=== PATIENT | male | born 1940 | race Caucasian/White ===

== ENCOUNTER 2021-06-11 12:19 | Inpatient (IN) | payer MEDICARE, SELFPAY ==
[2021-06-11] VITALS (7 sets, daily range): BP systolic 150–180; BP diastolic 55–75; PULSE 70–105; RESP 16–20; TEMP 36.2–37.6; O2SAT 97–99; BMI 25.6; BMI 26.6
--- NOTE | 2021-06-11 12:49 | EKG12_ITS ---
Test Reason : EDEMA Blood Pressure : / mmHG Vent. Rate : 084 BPM Atrial Rate : 084 BPM P-R Int : 178 ms QRS Dur : 094 ms QT Int : 348 ms P-R-T Axes : 037 -09 049 degrees QTc Int : 411 ms Normal sinus rhythm Normal ECG Confirmed by SAMARIA BUCKLEY MD ([id number]), editor magazine SYLVESTER ROSENBERG ([id number]) on 06/14/2021 11:12:31 AM Referred By: DEA/MEHUL Confirmed By:SAMARIA BUCKLEY MD
--- NOTE | 2021-06-11 12:49 | RAD_ITS ---
STUDY: X-RAY CHEST REASON FOR EXAM: Male, 81 years old. Peripheral edema TECHNIQUE: Single AP portable view of the chest. COMPARISON: None. FINDINGS: Calcified pleural plaques in the left hemithorax. Hyperinflation. Mild increased markings at the lung bases slightly more prominent on the left side suggestive of bibasilar atelectasis and/or scarring. There is no demonstrated pleural abnormality. Normal size heart. Normal mediastinum and jj. There is prominence of the pulmonary hilar arteries without peripheral pulmonary vascular congestion, suggesting pulmonary hypertension. There is atherosclerotic calcification of the aortic arch with tortuosity. There are diffuse degenerative changes of the visualized thoracic spine. Normal visualized ribs, clavicles, and shoulders. There is no demonstrated abnormality of the visualized soft tissue structures of the upper abdomen. RAD/Chest 1 View (Portable) IMPRESSION: Hyperinflation. Calcified pleural plaques in the left hemithorax. Increased markings at the lung bases slightly worse on the left side suggestive of either linear atelectasis and/or scarring. Electronically Signed: Kemal Shah MD at 13:29 EST ,
--- NOTE | 2021-06-11 12:50 | EDS_ITS ---
HPI History of Present Illness Chief Complaint: Edema Informant: patient Onset/Context/Timing Onset: Weeks Context: Gradual Onset Timing: Continuous Current Severity: Mild Maximum Severity: Mild Narrative Narrative: 81-year-old male history of prostate cancer with bony mets. He underwent chemotherapy last summer has been off of it since November. Also history of a prior MS, coronary disease with 1 stent and prior history of CHF. States the last 2 weeks he has had increasing swelling of his lower extremities primarily his feet below his knees. Then he developed swelling around his eyes and also his scrotum. Primary care physician placed him on Lasix and he said he has had limited improvement. Denies any shortness of breath. No fever. He is able to urinate. Patient states he is still urinating. Prior similar symptoms: No Recent Illness/Hospitalization: No PFSH PFS Medical History (Updated 06/11/21 @ 14:[address] Shukri Garner MD) Bone cancer Allergy/AdvReac Type Severity Reaction Status Date / Time No Known Allergies Allergy Verified 06/11/21 12:22 Social History Smoking Status: Never smoker ROS ROS ED ROS Narrative Swelling. Otherwise unremarkable. Review of Systems ROS Unobtainable: Denies due to encephalopathy Constitutional Constitutional ED: Denies chills or fever(s) ENT ENT ED: Denies ear pain Cardiovascular Cardiovascular: Denies chest pain Respiratory/Chest Respiratory/Chest: Denies cough or dyspnea Gastrointestinal Gastrointestinal: Denies diarrhea, nausea or vomiting Genitourinary Genitourinary ED: Denies dysuria or hematuria Musculoskeletal Musculoskeletal: Denies arthralgias or myalgias Integumentary Denies rash Neurologic Neurologic: Denies headache(s) Psychiatric Psychiatric: Denies depression Endocrine Endocrinology: Denies polyuria Allergic/Immunologic Allergic/Immunologic ED: Denies urticaria EXAM Physical Exam Narrative Exam Narrative: 11-year-old male no acute distress. Pulse ox 99% on room air no signs hypoxia. H EENT exam unremarkable. Neck nontender. No JVD. Lungs clear to auscultation bilaterally. Heart regular rhythm no murmur. Abdomen soft nontender normal bowel sounds no peritoneal signs. External exam unremarkable other than a swollen scrotum. Nontender. No cellulitis. Significantly edematous. Lower extremities are nontender but he is 1-2+ pitting edema both lower extremities below the knees. Neurologically is awake and alert with no focal motor deficits. Normal crab backer strength. Normal dorsi plantar flexion. Const Vital Signs: 06/11/21 12:20 Temperature 98.7 F Temperature Source Temporal Pulse Rate 85 Respiratory Rate 16 Blood Pressure 150/55 H Blood Pressure Mean 86 Pulse Ox 99 Oxygen Delivery Method Room Air Positive well nourished and well developed; Negative for obese, cachectic, contractures or unkempt General Appearance ED: well developed and NAD; Negative for unkempt, cachectic, contractures, cyanotic, diaphoretic or pallor Nutritional Appearance: Negative for cachectic or obese HEENT Reports moist mucous membranes Negative for trauma or tenderness Eyes PERRL and EOMs intact bilaterally Neck no lymphadenopathy, supple and no JVD General: Negative for tenderness Chest Wall inspection of chest normal and palpation of chest normal Resp normal respiratory effort and clear to auscultation bilaterally Effort and Inspection: Negative for pain with movement Auscultation: Negative for rales, rhonchi or wheezes Cardio regular rate, regular rhythm, S1 normal heart sound, S2 normal heart sound and no murmurs Rate: other Other Details: Systolic ejection murmur 3 out of 6. GI normal to inspection, nondistended, normoactive bowel sounds, non-tender, non- distended and no masses Inspection: Negative for abdominal distention Auscultation: normoactive bowel sounds Palpation: soft; Negative for tender, guarding or rebound tenderness present Narrative: Scrotal edema. Otherwise nontender. No cellulitis. Back/Spine no CVA tenderness General Back: Negative for CVA tenderness Cervical Spine: Negative for cervical spine tenderness Thoracic Spine / Upper Back: Negative for thoracic spinal tenderness Lumbar Spine / Lower Back: Negative for lumbar spinal tenderness Extremity Negative for normal to inspection Extremity Narrative: 1+ pitting edema both lower extremities. General Extremety ED: Yes edema; Negative for tenderness General Extremity: edema Neuro oriented x3 Sensorium / Orientation: alert; Negative for orientation impaired, lethargic or stuporous Motor Exam: strength 5/5 throughout; Negative for general weakness Psych mental status grossly normal Appearance: Negative for unkempt Attitude: No agitated Mood & Affect: Negative for depressed or tearful Skin no rashes or lesions noted and no wounds General Skin Exam: Negative for jaundice or pallor MDM MDM MDM Narrative Medical decision making narrative: 81-year-old male with lower extremity edema and also scrotal edema. Report he was placed on Lasix by his primary care physician with limited improvement. He denies any shortness of breath. Vital signs are stable. Chest x-ray, labs and EKG are pending. Patient labs are consistent with acute kidney failure with a creatinine of 5.17 previously normal a week ago. He will need to be treated acutely for acute hyperkalemia with IV insulin, aerosol, dextrose. I have spoken to his primary care physician. I spoken to the hospitalist. Patient be admitted to the PCU. Hospitalist will need also obtain a CT of the abdomen looking for any type of obstructive uropathy. This will obviously be done without contrast. I discussed the test results with the patient. Lab Data Attestation: I reviewed the patient's lab results. Lab results narrative: CBC shows a white count 8.9. H&H is 7.8 and 26.4. Platelets of 256. Patient's potassium is 6.3. BUN of 56 and creatinine of 5.17 consistent with acute kidney injury and may be acute kidney failure. We do not have any old labs available for this patient and he is normally cared for at the [facility]. He cannot get on my chart at this time. I am calling his primary care physician's office for old labs. I am calling liver enzymes show an AST of 69. Alk phos of 280. Chest x-ray shows chronic changes and no signs of acute failure nor pleural effusions. I did speak to the patient's primary care physician his most recent BUN and creatinine were 16 and 1 on June 04 so this is all acute and acute kidney failure today. Labs: Laboratory Results - last 24 hr 06/11/21 06/11/21 13:15 13:15 WBC 8.9 RBC 2.82 L Hgb 7.8 L Hct 26.4 L MCV 93.6 MCH 27.7 MCHC 29.5 L RDW Std Deviation 56.4 H RDW Coeff of Nery 16.6 H Plt Count 256 MPV 9.4 Neut % (Auto) Not Reportable Sodium 132 L Potassium 6.3 H* Chloride 105 Carbon Dioxide 19.0 L Anion Gap 8 BUN 56 H Creatinine 5.17 H Estim Creat Clear Calc 10.08 Est GFR (MDRD) Af Amer 14 L Est GFR (MDRD) Non-Af 12 L BUN/Creatinine Ratio 10.8 Glucose 104 Calcium 8.3 L Total Bilirubin 0.20 AST 69 H ALT 24 Alkaline Phosphatase 280 H Total Protein 6.3 L Albumin 2.3 L Globulin 4.0 Albumin/Globulin Ratio 0.6 L Radiography Chest X-Ray - ED: 1 View, Read by ED Physician, Heart, Lungs, Mediastinum, Bony Structures, No Acute Disease and Chronic Changes Diagnostic Testing: Clinical Impression(s) from Imaging Studies Chest X-Ray 06/11/21 12:49 IMPRESSION: Hyperinflation. Calcified pleural plaques in the left hemithorax. Increased markings at the lung bases slightly worse on the left side suggestive of either linear atelectasis and/or scarring. Electronically Signed: Kemal Shah MD at 13:29 EST , Chest x-ray, portable, single no acute abnormality. Interpreted by myself and the radiologist. No failure. Chronic changes. Rhythm Strip Rhythm Strip: Sinus Rhythm Rate: 84 Ectopy: None EKG Initial EKG: Attestation: I personally reviewed and interpreted this EKG as follows: Interpretation: Sinus Rhythm and No Acute Injury Pattern Comments: Sinus rhythm rate 84 no acute signs of MS nor ischemia. Critical Care Time Critical care time (excluding procedures): 30-74 minutes, Including time spent:, Discussing w/Patient &/or Family/Produce Service Team Member, Discussing w/Consultants, Arranging Admission or Transfer, Performing Direct Patient Care at Bedside and - (31 min) Discharge Plan Dx/Rx/DC Orders Clinical Impression: Edema, peripheral, Acute kidney failure, Acute hyperkalemia, History of prostate cancer, Anemia Disposition Disposition: [facility]
[2021-06-11 13:25] LABS: Hematocrit 26.4 % (40-54); Hemoglobin 7.8 g/dL (13.0-16.5); Mean Corp Hgb Conc 29.5 g/dL (32-36); Mean Corpuscular Hgb 27.7 pg (27.0-32.0); Mean Corpuscular Volume 93.6 fL (80-94); Mean Platelet Vol. 9.4 fl (6.2-12.0); POSITIVE COUNT YES; POSITIVE MORPHOLOGY YES; Platelet Count 256 K/mm3 (150-450); RBC Distribution Width CV 16.6 % (11.6-14.6); RBC Distribution Width SD 56.4 fl (35.1-43.9); Red Blood Count 2.82 M/mm3 (4.6-6.2); White Blood Count 8.9 K/mm3 (4.4-11.0)
[2021-06-11 13:27] LABS: Differential Indicated MANUAL DIFF
[2021-06-11 13:46] LABS: ALB/GLOB Ratio 0.6 RATIO (0.9-2.4); AST(SGOT) 69 U/L (15-37); Alanine Aminotransfer ALT/SGPT 24 U/L (16-61); Albumin, Serum 2.3 g/dL (3.2-5.0); Alkaline Phosphatase 280 U/L (45-117); Anion Gap 8 (5-15); BUN 56 mg/dL (7-18); BUN/Creat Ratio 10.8 RATIO (10-20); Calcium,Total 8.3 mg/dL (8.5-10.1); Chloride 105 mmol/L (98-107); Creatinine, Serum 5.17 mg/dL (0.70-1.30); EST Glomerular Filtration Rate 12 mL/min (>60); Est Glom Filt Rate - Afr Amer 14 mL/min (>60); Estimated Creatinine Clearance 10.08 ml/min; Glucose 104 mg/dL (74-106); Potassium 6.3 mmol/L (3.5-5.1); Protein, Total 6.3 g/dL (6.4-8.2); Sodium Level 132 mmol/L (136-145)
[2021-06-11 14:01] LABS: Lymphocyte 14 % (19-41); Metamyelocyte 11 % (0-1); Monocyte 10 % (0-10); Myelocyte 7 % (0-0); Neutrophil-Band 3 % (0-5); Neutrophil-Segmented 55 % (47-70); Total Cells Counted 100 (MANUAL DIFF)
[2021-06-11 14:02] LABS: Platelet Estimate ADEQUATE (ADEQ); Red Cell Morphology NORM C+C NORMAL (NORM C&C)
[2021-06-11 14:04] LABS: Absolute Lymphocyte Count 1.24 X10^3/uL (0.83-4.51); Absolute Neutrophil Count 5.1 X10^3/uL (2.0-7.7)
--- NOTE | 2021-06-11 14:10 | HP.PCM.HOS_ITS ---
HPI - General General Date of Admission: 06/11/21 HPI Narrative ANUEL PIZARRO, is a 81 M with a PMH as outlined including prostate cancer with bony mets who presents via the ED on 06/11/2021 with a complaint of lower extremity swelling. Symptoms been going on for ~ 2 weeks adn he also had swelling of his scrotum and around his eyes. He says he was recently started on Lasix on account of left lower extremity swelling. Patient states he stopped chemotherapy about a year ago for prostate cancer because it made him feel really horrible. He had about 2 sessions to goal at the time he stopped. He has however been having radiation therapy for the bony metastasis and actually had radiation today. He denied any chest pain, shortness of breath, palpitations or dizziness but did complain of swelling around his eyes which bothered him. He states he has been urinating well since he started taking the Lasix. He denied any abdominal distention abdominal pain and review of systems otherwise negative. Vitals in the ED were blood pressure 150/55, pulse rate of 85 and respiratory of 16 as well as temperature of 98.7 Fahrenheit. He was saturating at 99% on room air. CBC showed WBC of 8.9 with hemoglobin of 7.8 and platelets of 256. BMP shows sodium of 132 with potassium of 6.3 and bicarb of 19 as well as creatinine of 5.17. The ED doctor spoke to his PCP who said on 04 June, patient's creatinine was approximately 1. ALP was elevated at 280 and AST was 69. I did request for a CT of the abdomen and pelvis to be done which was ordered by the ED and read was pending, but per my review showed marked bilateral hydronephrosis and hydroureters. He has been admitted to be managed for hyperkalemia and TIERA likely postobstructive in the setting of his advanced prostate cancer. [facility] Medical History (Updated 06/11/21 @ 14:[address] Shukri Garner MD) Bone cancer Allergy/AdvReac Type Severity Reaction Status Date / Time No Known Allergies Allergy Verified 06/11/21 12:22 Social History Smoking Status: Never smoker ROS Constitutional Constitutional: Denies anorexia, chills, fatigue, fever(s), malaise, night sweats or weakness Eyes Eyes: Denies change in vision ENT HEENT: Denies dysphagia, headache(s) or nasal congestion Cardiovascular Cardiovascular: Reports edema; Denies chest pain, dyspnea on exertion, lightheadedness, orthopnea, palpitations, paroxysmal nocturnal dyspnea or rapid heart rate Respiratory/Chest Respiratory/Chest: Denies cough, productive cough, shortness of breath at rest or shortness of breath with exertion Gastrointestinal Gastrointestinal: Denies abdominal pain, constipation, diarrhea, dyspepsia, nausea or vomiting Genitourinary Genitourinary: Denies difficulty urinating, dysuria, hematuria, nocturia, urinary frequency or urinary hesitancy Musculoskeletal Musculoskeletal: Denies back pain, joint pain or joint swelling Neurologic Neurologic: Denies confusion, dizziness or focal weakness Psychiatric Psychiatric: Denies anxiety or depression Endocrine Endocrinology: Denies change in body appearance Hematologic/Lymphatic Hematologic/Lymphatic: Denies anemia Allergic/Immunologic Allergic/Immunologic: Denies asthma Vital Signs Vital Signs Vital Signs: 06/11/21 12:20 Temperature 98.7 F Temperature Source Temporal Pulse Rate 85 Respiratory Rate 16 Blood Pressure 150/55 H Blood Pressure Mean 86 Pulse Ox 99 Oxygen Delivery Method Room Air Weight Weight: 154 lb Body Mass Index (BMI) 25.6 Physical Exam Const alert and oriented x3 General Appearance: cooperative HEENT normocephalic, head/scalp atraumatic, hearing grossly normal bilaterally and moist oral mucous membranes Eyes PERRL, EOMs intact bilaterally and conjunctivae normal Neck no lymphadenopathy Resp normal respiratory effort, no retractions and no use of accessory muscles Cardio regular rate, regular rhythm, S1 normal heart sound, S2 normal heart sound and no murmurs GI normal to inspection, nondistended, normoactive bowel sounds, soft to palpation, non-tender and non-distended Extremity Extremity Narrative: bilateral 3+ lower extremity edema, massive scrotal edema Peripheral Pulses: Yes pulses 2+ throughout Skin no rashes or lesions noted Neuro oriented x3, CN's II-XII intact bilaterally and moves all extremities Sensorium / Orientation: awake and alert Psych affect normal Results Lab / Micro Data Result Diagrams: 06/11/21 13:15 06/11/21 13:15 Labs: Laboratory Results - last 24 hr 06/11/21 13:15: WBC 8.9, RBC 2.82 L, Hgb 7.8 L, Hct 26.4 L, MCV 93.6, MCH 27.7, MCHC 29.5 L, RDW Std Deviation 56.4 H, RDW Coeff of Nery 16.6 H, Plt Count 256, MPV 9.4, Neut % (Auto) Not Reportable, Absolute Neuts (auto) 5.1, Absolute Lymphs (auto) 1.24, Total Counted 100, Neutrophils % (Manual) 55, Band Neutrophils % 3, Lymphocytes % (Manual) 14 L, Monocytes % (Manual) 10, Metamyelocytes % 11 H, Myelocytes % 7 H, Diff Path Review August, Platelet Estimate ADEQUATE, RBC Morphology NORM C+C 06/11/21 13:15: Sodium 132 L, Potassium 6.3 H*, Chloride 105, Carbon Dioxide 19.0 L, Anion Gap 8, BUN 56 H, Creatinine 5.17 H, Estim Creat Clear Calc 10.08, Est GFR (MDRD) Af Amer 14 L, Est GFR (MDRD) Non-Af 12 L, BUN/Creatinine Ratio 10.8, Glucose 104, Calcium 8.3 L, Total Bilirubin 0.20, AST 69 H, ALT 24, Alkaline Phosphatase 280 H, Total Protein 6.3 L, Albumin 2.3 L, Globulin 4.0, Albumin/Globulin Ratio 0.6 L Rhythm Strip Rhythm Strip: Sinus Rhythm Rate: 84 Ectopy: None Radiology Impression Chest X-Ray 06/11/21 12:49 IMPRESSION: Hyperinflation. Calcified pleural plaques in the left hemithorax. Increased markings at the lung bases slightly worse on the left side suggestive of either linear atelectasis and/or scarring. Electronically Signed: Kemal Shah MD at 13:29 EST , Assessment & Plan Assessment/Plan (1) Acute kidney failure: (2) Acute hyperkalemia: (3) Edema, peripheral: PLAN: #TIERA * admit to PCU * Creatinine is 5.17 with a baseline of around 1 from June 04 of this year according to his PCP. Previous records not available in the ED. * potassium is 6.3 * I suspect this is a post obstructive TIERA likely related to his advanced prostate cancer * insert rutherford catheter to monitor urine output * hold lasix * hydrate with IVF NS@ 125cc/hr * consult nephrology * CT of the abdomen and pelvis ordered; per my read, it appears patient has bilateral hydronephrosis and hydroureter. Official read is pending. * consult urology as well * trend Cr * patient counseled that if kidney function doesnt improve, he may need dialysis * #Hyperkalemia due to TIERA * given potassium depleting cocktail in the ED * give PO kayexalate and trend potassium * nephrology consulted * #History of metastatic prostate cancer with bony mets * stopped chemo about a year ago as it made him feel horrible. * says he is getting radiation and got a session of radiation today * to follow up with oncology on outpatient basis * DVT prophylaxis: lovenox, renally dosed Code status: DNRCCA no intubation * Patient counseled extensively about different types of CODE STATUS including full code, DNR CCA and DNR CCA. * Patient initially said he wanted more time to think about it and to discuss with his but subsequently said he knew he did not want intubation or CPR and so was okay with being put in as DNR CCA no intubation for now. * CODE STATUS is DNR CCA no intubation * Total [id number] time 17 minutes. Charges/Coding Visit Charges Inpatient E&M: 73867 Init Hosp L3 Procedures Hospitalists Procedures: 69536 Advncd Care Plan 30 Min
--- NOTE | 2021-06-11 14:50 | CASEMGMT ---
SOL CALDERON Assessment: RN CM to room to meet with patient for initial transition planning/care coordination assessment. SOL CALDERON introduced self and role at [facility]. Patient voices understanding and consents to assessment at this time. No visitors present at bedside. Patient is alert and oriented and answers all questions appropriately, sitting up on ER cart in no apparent distress. Care providers, pharmacy, and demographics verified/updated at this time. Admitting Dx: TIERA, hyperkalemia PCP: Gerardo Roa Specialists: Mascmalka- oncologist, Laine- conference services director Preferred Pharmacy: [facility] [place] Insurance: [facility] Prescription Benefit: yes Living Will/HPOA: Patient states he has a living will and HPOA. Unable to recall who was designated as HPOA. Patient aware these forms are not on file at [facility] and may be brought in to be scanned into record. LNOK: Luz Powers Living Arrangements: Patient lives with in single story house with no steps to enter the home. Patient states independent with ADLs prior to hospitalization. Patient typically ambulates independently without the use of an assistive device. Smoking/ETOH: Former smoker (quit 25 years ago), admits to occasional ETOH use Transportation: Patient drives self and denies transportation concerns. DME/HHC/SNF: Patient denies having any DME in the home and denies need for DME at this time. Denies previous HHC or SNF stays. Patient is currently undergoing radiation treatment for prostate cancer. Patient has no concerns with going home at time of discharge and denies need for HHC. CM to follow for any discharge planning/needs. Patient voices no concerns/needs at this time. Advised patient to ask for CM if any questions/concerns/needs arise. Voices understanding. Plan: home
--- NOTE | 2021-06-11 14:52 | CT_ITS ---
STUDY: CT ABDOMEN AND PELVIS WITHOUT CONTRAST REASON FOR EXAM: Male, 81 years old. Acute kidney failure. RADIATION DOSAGE (If Supplied By Facility): CTDIvol = ( 7.63 ) mGy, DLP = ( 525.77 ) mGycm TECHNIQUE: Transaxial images were obtained from the dome of the diaphragm to the symphysis pubis without oral contrast, and without intravenous contrast. Sagittal and coronal images were reconstructed. Individualized dose optimization techniques were used for this CT. COMPARISON: None. FINDINGS: There are emphysematous changes at the lung bases without acute infiltrate or mass. Small bilateral pleural effusions The visualized portions of the heart are within normal limits. Coronary artery calcifications. Normal liver. Normal gallbladder and extrahepatic biliary system. Normal spleen. Partial fatty replacement of the pancreas without mass. Normal bilateral adrenal glands. The right kidney is normal in size and cortical thickness. There is marked hydronephrosis and pelviectasis. Mild right ureterectasis. There are no filling defects. The left kidney is normal in size and cortical thickness. There is mild hydronephrosis. No obvious ureteral dilatation or filling defect Small hiatal hernia. The stomach is nondistended but grossly normal. There are nondistended fluid-filled loops of small intestine throughout the abdominal cavity. There is disc distention of proximal colon with feces and fluid. There are diverticula and mild wall thickening descending and sigmoid colon with surgical anastomosis in the rectosigmoid region. Question minimal stranding of the left lateral conal and pararenal fascial planes. The possibility of mild diverticulitis cannot be completely ruled out. There is non-visualization of the appendix. There is diffuse atherosclerotic calcification of the abdominal aorta, without a demonstrated aneurysm. Normal inferior vena cava. There is soft tissue density surrounding the upper aorta at the level of the renal veins consistent with lymphadenopathy. Normal urinary bladder. Prostate is prominent and invaginates into the bladder floor. No pelvic lymphadenopathy. No free air or free fluid is seen within the peritoneal cavity Mild anasarca of the soft tissues of the abdominal wall and flanks. There is enlargement of this protocol with questionable hydroceles and marked scrotal wall thickening. There are diffuse degenerative changes of the lumbar spine and hips. There is no visualized fracture. CT/Abdomen/Pelvis without Cont IMPRESSION: 1. Small bilateral pleural effusions. 2. Bilateral hydronephrosis without marked ureterectasis or evidence of renal or ureteral calculi. Question reflux or due to limited bladder emptying secondary to enlarged prostate. 3. Suspected distal descending and proximal sigmoid diverticulitis without complication. 4. Mildly prominent in colon and small bowel. Question ileus secondary to the diverticulitis. 5. Retroperitoneal soft tissue suggesting lymphadenopathy. 6. Hiatal hernia. 7. Enlarged scrotum with questionable hydroceles and marked scrotal wall edema. 8. Anasarca. 9. Degenerative changes of the lumbar spine. Electronically Signed: Keon Jean Baptiste DO at 16:57 EST ,
[2021-06-11] MEDS: Insulin Lispro 10 UNIT in Syringe 0 ML 6 UNIT IV (15:17)
[2021-06-11] MEDS: Sodium Bicarbonate 8.4% 50 ML Syringe 50 MEQ IV (15:17)
[2021-06-11] MEDS: Calcium Gluconate IV 3 GM in Syringe 1 EACH IV (15:17)
[2021-06-11] MEDS: Dextrose 10%-Water 250 ML 999 ML IV (15:18)
[2021-06-11] MEDS: Sodium Polystyrene Sulfonate 15 GM/60 ML UDC 30 GM PO (15:29)
--- NOTE | 2021-06-11 16:00 | ED.RN ---
THIS RN DISCUSSED A CATHETER WITH PATIENT VERBALLY ORDERED BY . PT STATES LIKE HELL AND REFUSES CATHETER AT THIS TIME. PT IS ENCOURAGED TO REACH OUT TO NURSING STAFF IF HE BECOMES MORE UNCOMFORTABLE
[2021-06-11] MEDS: 0.9% Normal Saline 1,000 ML 125 ML IV (16:56)
[2021-06-12] VITALS (16 sets, daily range): BP systolic 142–188; BP diastolic 49–70; PULSE 83–104; RESP 12–20; TEMP 36.9–37.6; O2SAT 94–98
[2021-06-12] MEDS: 0.9% Normal Saline 1,000 ML 125 ML IV (01:24)
[2021-06-12 06:08] LABS: Hematocrit 20.5 % (40-54); Hemoglobin 6.4 g/dL (13.0-16.5); Mean Corp Hgb Conc 31.2 g/dL (32-36); Mean Corpuscular Hgb 27.9 pg (27.0-32.0); Mean Corpuscular Volume 89.5 fL (80-94); Mean Platelet Vol. 9.9 fl (6.2-12.0); POSITIVE COUNT YES; POSITIVE MORPHOLOGY YES; Platelet Count 218 K/mm3 (150-450); RBC Distribution Width CV 16.6 % (11.6-14.6); RBC Distribution Width SD 53.7 fl (35.1-43.9); Red Blood Count 2.29 M/mm3 (4.6-6.2); White Blood Count 6.2 K/mm3 (4.4-11.0)
[2021-06-12 06:21] LABS: Differential Indicated MANUAL DIFF
[2021-06-12 06:39] LABS: Anion Gap 8 (5-15); BUN 56 mg/dL (7-18); BUN/Creat Ratio 10.4 RATIO (10-20); Calcium,Total 7.4 mg/dL (8.5-10.1); Chloride 109 mmol/L (98-107); Creatinine, Serum 5.36 mg/dL (0.70-1.30); EST Glomerular Filtration Rate 11 mL/min (>60); Est Glom Filt Rate - Afr Amer 13 mL/min (>60); Estimated Creatinine Clearance 9.72 ml/min; Glucose 109 mg/dL (74-106); Potassium 5.4 mmol/L (3.5-5.1); Sodium Level 137 mmol/L (136-145)
[2021-06-12 06:53] LABS: Lymphocyte 13 % (19-41); Metamyelocyte 2 % (0-1); Monocyte 8 % (0-10); Myelocyte 3 % (0-0); Neutrophil-Band 3 % (0-5); Neutrophil-Segmented 71 % (47-70); Total Cells Counted 100 (MANUAL DIFF)
[2021-06-12 06:54] LABS: Absolute Lymphocyte Count 0.81 X10^3/uL (0.83-4.51); Absolute Neutrophil Count 4.9 X10^3/uL (2.0-7.7); Lymphocyte # 0.81 X10^3/ul (0.83-4.51); Neutrophil # 4.93 X10^3/uL (2.7-7.7); Platelet Estimate ADEQUATE (ADEQ)
[2021-06-12 06:56] LABS: Red Cell Morphology NORM C+C NORMAL (NORM C&C)
--- NOTE | 2021-06-12 08:54 | PCM.CONS.U ---
Assessment & Plan Assessment/Plan (1) History of prostate cancer: PLAN: Prostate cancer being treated with hormone therapy and radiation therapy. Advanced disease. (2) Acute hyperkalemia: PLAN: Worsening renal function. (3) Acute kidney failure: PLAN: Worsening kidney function due to obstruction probably will need bilateral stents to improve his kidney function will need medically optimized prior to surgical procedure will come by tomorrow and speak with the patient and his family regarding their wishes. HPI Consult Data Date of Consult: 06/12/21 HPI Narrative HPI Narrative: 81-year-old male with a history of prostate cancer diagnosed with a PSA that was very high over 100 he sees a local oncologist and has been on hormone deprivation therapy with Lupron also had radiation therapy. The patient unfortunately is a poor historian and cannot give me all the details but appears to have radiation therapy and hormone therapy for metastatic prostate cancer. CT scan demonstrates bilateral hydronephrosis consistent with obstruction causing renal failure on chronic kidney dysfunction explained the situation to the patient, I would recommend we place bilateral stents however he is very weak and frail and also his hemoglobin is only 6.0. I think you would be necessary to have him medically optimized prior to surgery and will plan to place stents he is also not sure if he wants stents. Somewhat confused. he was agreeable with this. I will have to come by tomorrow and talk to him and his regarding the situation [facility] Medical History (Updated 06/11/21 @ 16:38 by Anum Wheeler) Asthma Bone cancer Chronic pain Diverticulitis Former smoker Myocardial infarct Allergy/AdvReac Type Severity Reaction Status Date / Time No Known Allergies Allergy Verified 06/11/21 12:22 Surgical History (Updated 06/11/21 @ 16:38 by Anum Wheeler) History of coronary artery stent placement Social History Smoking Status: Former smoker ROS Constitutional Constitutional: Denies chills, fever(s) or malaise Eyes Eyes: Denies blurry vision or change in vision ENT HEENT: Reports none Cardiovascular Cardiovascular: Denies chest pain or palpitations Respiratory/Chest Respiratory/Chest: Denies cough or shortness of breath with exertion Gastrointestinal Gastrointestinal: Denies abdominal pain, constipation or diarrhea Musculoskeletal Musculoskeletal: Denies back pain, joint stiffness or joint swelling Integumentary Integumentary: Denies dry skin, jaundice, lesions or rash Neurologic Neurologic: Denies confusion, syncope or weakness Psychiatric Psychiatric: Reports none; Denies anxiety or depression Endocrine Endocrinology: Denies excessive sweating, fatigue or flushing Hematologic/Lymphatic Hematologic/Lymphatic: Denies anemia, easy bleeding or easy bruising Physical Exam Const alert and oriented x3 General Appearance: cooperative HEENT normocephalic, head/scalp atraumatic, EAC's normal and TM's normal bilaterally Eyes PERRL and EOMs intact bilaterally Pupil: sluggish Neck no lymphadenopathy, supple and no JVD General: trachea midline Lymph Lymphatic: no lymphadenopathy noted, lymphedema and lymphadenopathy Resp normal respiratory effort, normal air movement and clear to auscultation bilaterally Cardio regular rate, regular rhythm and peripheral pulses 2+ throughout GI soft to palpation, non-tender and non-distended Extremity normal capillary refill and no clubbing, cyanosis or edema General Extremity: no tenderness to palpation of joints or extremities Skin no rashes or lesions noted General Skin Exam: turgor normal Lesions: no lesions Rashes: no rashes Neuro CN's II-XII intact bilaterally Speech: speech normal Motor Exam: strength 5/5 throughout; Negative for general weakness Psych thought process normal, cooperative and affect normal Appearance: appropriate Lab / Micro Data Result Diagrams: 06/12/21 05:38 06/12/21 05:38 Labs: Laboratory Results - last 24 hr 06/11/21 13:15: WBC 8.9, RBC 2.82 L, Hgb 7.8 L, Hct 26.4 L, MCV 93.6, MCH 27.7, MCHC 29.5 L, RDW Std Deviation 56.4 H, RDW Coeff of Neyr 16.6 H, Plt Count 256, MPV 9.4, Neut % (Auto) Not Reportable, Absolute Neuts (auto) 5.1, Absolute Lymphs (auto) 1.24, Total Counted 100, Neutrophils % (Manual) 55, Band Neutrophils % 3, Lymphocytes % (Manual) 14 L, Monocytes % (Manual) 10, Metamyelocytes % 11 H, Myelocytes % 7 H, Diff Path Review August, Platelet Estimate ADEQUATE, RBC Morphology NORM C+C 06/11/21 13:15: Sodium 132 L, Potassium 6.3 H*, Chloride 105, Carbon Dioxide 19.0 L, Anion Gap 8, BUN 56 H, Creatinine 5.17 H, Estim Creat Clear Calc 10.08, Est GFR (MDRD) Af Amer 14 L, Est GFR (MDRD) Non-Af 12 L, BUN/Creatinine Ratio 10.8, Glucose 104, Calcium 8.3 L, Total Bilirubin 0.20, AST 69 H, ALT 24, Alkaline Phosphatase 280 H, Total Protein 6.3 L, Albumin 2.3 L, Globulin 4.0, Albumin/Globulin Ratio 0.6 L 06/12/21 05:38: WBC 6.2, RBC 2.29 L, Hgb 6.4 L, Hct 20.5 L, MCV 89.5, MCH 27.9, MCHC 31.2 L D, RDW Std Deviation 53.7 H, RDW Coeff of Nery 16.6 H, Plt Count 218, MPV 9.9, Neut % (Auto) Not Reportable, Absolute Neuts (auto) 4.9, Absolute Lymphs (auto) 0.81 L, Total Counted 100, Neutrophils % (Manual) 71 H, Band Neutrophils % 3, Lymphocytes % (Manual) 13 L, Monocytes % (Manual) 8, Metamyelocytes % 2 H, Myelocytes % 3 H, Diff Path Review August, Platelet Estimate ADEQUATE, RBC Morphology NORM C+C 06/12/21 05:38: Sodium 137, Potassium 5.4 H, Chloride 109 H, Carbon Dioxide 20.0 L, Anion Gap 8, BUN 56 H, Creatinine 5.36 H, Estim Creat Clear Calc 9.72, Est GFR (MDRD) Af Amer 13 L, Est GFR (MDRD) Non-Af 11 L, BUN/Creatinine Ratio 10.4, Glucose 109 H, Calcium 7.4 L 06/12/21 07:15: Crossmatch See Detail Rhythm Strip Rhythm Strip: Sinus Rhythm Rate: 84 Ectopy: None Radiology Impression Chest X-Ray 06/11/21 12:49 IMPRESSION: Hyperinflation. Calcified pleural plaques in the left hemithorax. Increased markings at the lung bases slightly worse on the left side suggestive of either linear atelectasis and/or scarring. Electronically Signed: Kemal Shah MD at 13:29 EST , Abdomen/Pelvis CT 06/11/21 14:52 IMPRESSION: 1. Small bilateral pleural effusions. 2. Bilateral hydronephrosis without marked ureterectasis or evidence of renal or ureteral calculi. Question reflux or due to limited bladder emptying secondary to enlarged prostate. 3. Suspected distal descending and proximal sigmoid diverticulitis without complication. 4. Mildly prominent in colon and small bowel. Question ileus secondary to the diverticulitis. 5. Retroperitoneal soft tissue suggesting lymphadenopathy. 6. Hiatal hernia. 7. Enlarged scrotum with questionable hydroceles and marked scrotal wall edema. 8. Anasarca. 9. Degenerative changes of the lumbar spine. Electronically Signed: Keon Jean Baptiste DO at 16:57 EST Reading Location ID and State: [facility] Tel [phone], Service support ,
[2021-06-12] MEDS: Enoxaparin 30 MG/0.3 ML Syringe SC (09:38)
--- NOTE | 2021-06-12 11:05 | CON.PCM.RE_ITS ---
Assessment & Plan Assessment/Plan (1) Acute kidney injury: PLAN: -No documented baseline serum creatinine on record here at [facility]. -However, the patient's daughter tells me that serum creatinine was normal prior to the initiation of radiation therapy 2 weeks ago. -The cause of TIERA is most likely due to obstruction since the patient has bilateral hydronephrosis which is new. The patient's daughter also tells me that imaging study of the system was normal prior to radiation therapy as well. -Other causes of TIERA is also possible. The patient had been on relatively high dose of NSAIDs prior to admission. His oral intake has been poor. Therefore, hemodynamically mediated TIERA from volume depletion made worse by NSAIDs is also possible. It is unclear whether the patient was on vreqt-xbszjiolzxq-z ldosterone nayeli prior to admission or not. -I will check urinalysis and urine indices. -Unfortunately, because of pleural effusion and anasarca, we are limited in terms of how much fluid we can give the patient safely. -I asked the patient to continue to push solute and fluid intake on his own for now. -Avoid further NSAIDs. Would not use ROBBI inhibitor or ARB for BP control for now. -I agree with Dr. Romo's plan to possibly stent both ureters. If renal function fails to improve, we will work-up his TIERA further. (2) Hyperkalemia: PLAN: -Hyperkalemia is likely due to TIERA and NSAID use. Unclear whether patient was on ROBBI inhibitor or ARB prior to admission as well not. -The patient was treated medically in the ED yesterday for hyperkalemia. -Serum potassium is improved and is just slightly high today. -Discussed limiting potassium in diet with dietitian today. (3) Metabolic acidosis: PLAN: -Metabolic acidosis is also likely due to TIERA. -There is no diarrhea. -Serum bicarbonate level is 20 mmol/L today, so there is no need for supplemental sodium bicarbonate at this point. -We will continue to monitor serum bicarbonate. (4) Anemia: PLAN: -The patient likely has anemia due to chronic disease and possibly from malignancy being the bone. -We will defer decision to transfuse patient to hospital medicine service. (5) Prostate cancer metastatic to bone: PLAN: -The patient had been getting radiation therapy as outpatient prior to admission. -The patient is followed by Dr. Mejia Singh as outpatient. HPI Consult Data Date of Consult: 06/12/21 HPI Narrative Reason for Consultation: Acute kidney injury HPI Narrative: The patient is a 81-year-old man with past history of metastatic prostate cancer, CAD status post MA and prior history of heart failure (unknown type). The patient presented to the hospital with worsening edema of his lower extremities bilaterally. Edema started around 2 weeks prior to presentation in the left leg. Edema progressed to the right leg a week later and eventually to the scrotum. The patient denies decreased urine output. He does report increasing urinary frequency. There has been no hesitation, gross hematuria, or dribbling. The patient is being treated with radiation therapy for prostate cancer. He does report bone pain, and he has been taking ibuprofen, [place] and methadone prior to admission. The patient tells me that he had been taking around 1200 mg of ibuprofen per day prior to admission. The patient currently denies chest pain, nausea, vomiting, or diarrhea. There is shortness of breath with activity. Nephrology is asked to see the patient because of TIERA. The patient presented with serum creatinine of 5.17 mg/dL and hyperkalemia with potassium level of 6.3 mmol/L on 06/11/2021. The patient was treated with medical therapy for hyperkalemia. Serum potassium is better today at 5.4 mmol/L, but his serum creatinine remains elevated at 5.36 mg/dL. CT scan of the abdomen and pelvis done on 06/11/2021 revealed bilateral hydronephrosis and enlarged prostate. The patient was accompanied by his daughter, Kassy, who is a nurse. Kassy tells me that his renal function was normal and there was no mention of hydronephrosis on CT scan that was done prior to the start of radiation treatment approximately 2 weeks ago. [facility] Medical History (Updated 06/12/21 @ 11:[address] Arvind Darby MD) Asthma Bone cancer Chronic pain Diverticulitis Former smoker Myocardial infarct Allergy/AdvReac Type Severity Reaction Status Date / Time No Known Allergies Allergy Verified 06/11/21 12:22 Surgical History (Updated 06/11/21 @ 16:38 by Anum Wheeler) History of coronary artery stent placement Social History Smoking Status: Former smoker ROS ROS Narrative 01/10 ROS was done. It is otherwise negative aside from HPI. Physical Exam Narrative General: Alert and oriented x3, no apparent distress. HEENT: Normocephalic, atraumatic. Mucous membrane dry. PERRLA, EOMI. Hearing is intact. Neck: Supple, no JVD. Heart: Normal S1, S2. No rubs, murmurs or gallops. Lungs: Decreased breath sound at bases bilaterally Abdomen: Normal bowel sound, soft, nontender, no guarding or rebound. Extremities: 4+ edema of the lower extremities bilaterally. Musculoskeletal: Full passive range of motion. There is no joint swelling. Neurological: No focal neurologic deficits. Skin: Skin is warm and dry. No rash. Psychological: Mood is depressed and affect is normal. Lab / Micro Data Result Diagrams: 06/12/21 05:38 06/12/21 05:38 Labs: Laboratory Results - last 24 hr 06/11/21 13:15: WBC 8.9, RBC 2.82 L, Hgb 7.8 L, Hct 26.4 L, MCV 93.6, MCH 27.7, MCHC 29.5 L, RDW Std Deviation 56.4 H, RDW Coeff of Nery 16.6 H, Plt Count 256, MPV 9.4, Neut % (Auto) Not Reportable, Absolute Neuts (auto) 5.1, Absolute Lymphs (auto) 1.24, Total Counted 100, Neutrophils % (Manual) 55, Band Neutrophils % 3, Lymphocytes % (Manual) 14 L, Monocytes % (Manual) 10, Metamyelocytes % 11 H, Myelocytes % 7 H, Diff Path Review August, Platelet Estimate ADEQUATE, RBC Morphology NORM C+C 06/11/21 13:15: Sodium 132 L, Potassium 6.3 H*, Chloride 105, Carbon Dioxide 19.0 L, Anion Gap 8, BUN 56 H, Creatinine 5.17 H, Estim Creat Clear Calc 10.08, Est GFR (MDRD) Af Amer 14 L, Est GFR (MDRD) Non-Af 12 L, BUN/Creatinine Ratio 10.8, Glucose 104, Calcium 8.3 L, Total Bilirubin 0.20, AST 69 H, ALT 24, Alkaline Phosphatase 280 H, Total Protein 6.3 L, Albumin 2.3 L, Globulin 4.0, Albumin/Globulin Ratio 0.6 L 06/12/21 05:38: WBC 6.2, RBC 2.29 L, Hgb 6.4 L, Hct 20.5 L, MCV 89.5, MCH 27.9, MCHC 31.2 L D, RDW Std Deviation 53.7 H, RDW Coeff of Nery 16.6 H, Plt Count 218, MPV 9.9, Neut % (Auto) Not Reportable, Absolute Neuts (auto) 4.9, Absolute Lymphs (auto) 0.81 L, Total Counted 100, Neutrophils % (Manual) 71 H, Band Neutrophils % 3, Lymphocytes % (Manual) 13 L, Monocytes % (Manual) 8, Metamyelocytes % 2 H, Myelocytes % 3 H, Diff Path Review August, Platelet Estimate ADEQUATE, RBC Morphology NORM C+C 06/12/21 05:38: Sodium 137, Potassium 5.4 H, Chloride 109 H, Carbon Dioxide 20.0 L, Anion Gap 8, BUN 56 H, Creatinine 5.36 H, Estim Creat Clear Calc 9.72, Est GF R (MDRD) Af Amer 13 L, Est GFR (MDRD) Non-Af 11 L, BUN/Creatinine Ratio 10.4, Glucose 109 H, Calcium 7.4 L 06/12/21 07:15: Blood Type AB POSITIVE, Antibody Screen NEGATIVE, Crossmatch See Detail Rhythm Strip Rhythm Strip: Sinus Rhythm Rate: 84 Ectopy: None Radiology Impression Chest X-Ray 06/11/21 12:49 IMPRESSION: Hyperinflation. Calcified pleural plaques in the left hemithorax. Increased markings at the lung bases slightly worse on the left side suggestive of either linear atelectasis and/or scarring. Electronically Signed: Kemal Shah MD at 13:29 EST , Abdomen/Pelvis CT 06/11/21 14:52 IMPRESSION: 1. Small bilateral pleural effusions. 2. Bilateral hydronephrosis without marked ureterectasis or evidence of renal or ureteral calculi. Question reflux or due to limited bladder emptying secondary to enlarged prostate. 3. Suspected distal descending and proximal sigmoid diverticulitis without complication. 4. Mildly prominent in colon and small bowel. Question ileus secondary to the diverticulitis. 5. Retroperitoneal soft tissue suggesting lymphadenopathy. 6. Hiatal hernia. 7. Enlarged scrotum with questionable hydroceles and marked scrotal wall edema. 8. Anasarca. 9. Degenerative changes of the lumbar spine. Electronically Signed: Keon Jean Baptiste DO at 16:57 EST Reading Location ID and State: [address] [place] [address] Tel [phone], Service support ,
--- NOTE | 2021-06-12 12:43 | PN.HOSP_ITS ---
Documented by User: Precious Rosa NP, [employer]PIE[employer]-C 06/12/21 13:12 Subjective Subjective Patient seen and examined. Reports ongoing lower extremity and scrotal swelling. Patient states he feels a lot of his symptoms are related to radiation. He denies other associated symptoms or complaints Objective Data Objective Data Vital Signs: Vital Signs Temp Pulse Resp BP Pulse Ox 98.9 F 83 16 142/59 H 98 06/12/21 11:40 06/12/21 11:40 06/12/21 11:40 06/12/21 11:40 06/12/21 11:40 Oxygen Flow Rate (L/min) 6 Oxygen Delivery Method Room Air Weight: 159 lb 12.798 oz Body Mass Index (BMI) 26.6 Intake & Output: Intake and Output for Last 24 Hours 06/10/21 06/11/21 06/12/21 23:59 23:59 23:59 Intake Total 280 / 280 1999 Output Total / Balance 280 / 280 1979 Lab / Micro Data Result Diagrams: 06/12/21 05:38 06/12/21 05:38 Labs: Laboratory Results - last 24 hr 06/11/21 13:15: WBC 8.9, RBC 2.82 L, Hgb 7.8 L, Hct 26.4 L, MCV 93.6, MCH 27.7, MCHC 29.5 L, RDW Std Deviation 56.4 H, RDW Coeff of Nery 16.6 H, Plt Count 256, MPV 9.4, Neut % (Auto) Not Reportable, Absolute Neuts (auto) 5.1, Absolute Lymphs (auto) 1.24, Total Counted 100, Neutrophils % (Manual) 55, Band Neutrophils % 3, Lymphocytes % (Manual) 14 L, Monocytes % (Manual) 10, Metamyelocytes % 11 H, Myelocytes % 7 H, Diff Path Review August, Platelet Estimate ADEQUATE, RBC Morphology NORM C+C 06/11/21 13:15: Sodium 132 L, Potassium 6.3 H*, Chloride 105, Carbon Dioxide 19.0 L, Anion Gap 8, BUN 56 H, Creatinine 5.17 H, Estim Creat Clear Calc 10.08, Est GFR (MDRD) Af Amer 14 L, Est GFR (MDRD) Non-Af 12 L, BUN/Creatinine Ratio 10.8, Glucose 104, Calcium 8.3 L, Total Bilirubin 0.20, AST 69 H, ALT 24, Alkaline Phosphatase 280 H, Total Protein 6.3 L, Albumin 2.3 L, Globulin 4.0, Albumin/Globulin Ratio 0.6 L 06/12/21 05:38: WBC 6.2, RBC 2.29 L, Hgb 6.4 L, Hct 20.5 L, MCV 89.5, MCH 27.9, MCHC 31.2 L D, RDW Std Deviation 53.7 H, RDW Coeff of Nery 16.6 H, Plt Count 218, MPV 9.9, Neut % (Auto) Not Reportable, Absolute Neuts (auto) 4.9, Absolute Lymphs (auto) 0.81 L, Total Counted 100, Neutrophils % (Manual) 71 H, Band Neutrophils % 3, Lymphocytes % (Manual) 13 L, Monocytes % (Manual) 8, Metamyelocytes % 2 H, Myelocytes % 3 H, Diff Path Review August, Platelet Estimate ADEQUATE, RBC Morphology NORM C+C 06/12/21 05:38: Sodium 137, Potassium 5.4 H, Chloride 109 H, Carbon Dioxide 20.0 L, Anion Gap 8, BUN 56 H, Creatinine 5.36 H, Estim Creat Clear Calc 9.72, Est GFR (MDRD) Af Amer 13 L, Est GFR (MDRD) Non-Af 11 L, BUN/Creatinine Ratio 10.4, Glucose 109 H, Calcium 7.4 L 06/12/21 07:15: Blood Type AB POSITIVE, Antibody Screen NEGATIVE, Crossmatch See Detail Radiography Diagnostic Testing: Radiology Impression Chest X-Ray 06/11/21 12:49 IMPRESSION: Hyperinflation. Calcified pleural plaques in the left hemithorax. Increased markings at the lung bases slightly worse on the left side suggestive of either linear atelectasis and/or scarring. Electronically Signed: Kemal Shah MD at 13:29 EST , Abdomen/Pelvis CT 06/11/21 14:52 IMPRESSION: 1. Small bilateral pleural effusions. 2. Bilateral hydronephrosis without marked ureterectasis or evidence of renal or ureteral calculi. Question reflux or due to limited bladder emptying secondary to enlarged prostate. 3. Suspected distal descending and proximal sigmoid diverticulitis without complication. 4. Mildly prominent in colon and small bowel. Question ileus secondary to the diverticulitis. 5. Retroperitoneal soft tissue suggesting lymphadenopathy. 6. Hiatal hernia. 7. Enlarged scrotum with questionable hydroceles and marked scrotal wall edema. 8. Anasarca. 9. Degenerative changes of the lumbar spine. Electronically Signed: Keon JacomeonDO at 16:57 EST Reading Location ID and State: [address] [place] [address] Tel [phone], Service support , Rhythm Strip Rhythm Strip: Sinus Rhythm Rate: 84 Ectopy: None Physical Exam Const alert, oriented x3 and no apparent distress Orientation / Consciousness: awake, oriented to person, oriented to place and oriented to time HEENT normocephalic and moist oral mucous membranes Eyes PERRL, EOMs intact bilaterally and conjunctivae normal Neck no lymphadenopathy Resp normal respiratory effort and clear to auscultation bilaterally Cardio regular rate, regular rhythm and no murmurs Peripheral Pulses: pulses 2+ throughout GI normal to inspection, nondistended, normoactive bowel sounds, non-tender and non-distended Extremity normal to inspection General Extremity: edema bilateral lower extremity Skin no rashes or lesions noted Lesions: no lesions Rashes: no rashes Trauma: no lacerations or abrasions Neuro CN's II-XII intact bilaterally, no focal motor deficits, no sensory deficits noted and deep tendon reflexes 2+ bilaterally Psych mental status grossly normal and affect normal Assessment & Plan Assessment/Plan (1) Acute kidney injury: (2) Prostate cancer metastatic to bone: PLAN: 1. Acute kidney injury, likely obstructive uropathy with bilateral hydronephrosis-nephrology and urology following. Will likely need bilateral stents, plan for Monday. Urology to meet with patient and to further discuss. Urine studies pending. 2. Acute on chronic anemia-transfuse 1 unit PRBC. Trend H&H. Likely due to malignancy however will obtain stool for occult blood and iron studies. Begin P PI. 3. Metastatic prostate cancer, bone mets-on hormonal and radiation therapy. Continue outpatient follow-up with radiation/oncologist. 4. Hyperkalemia-improved, trend BMP. 5. Small bilateral pleural effusions/anasarca-likely related to malignancy. DVT prophylaxis-Lovenox subcu This patient was seen by ARUN Sy under the supervision of Dr. Beltran. Documented by User: Dr. Babar Beltran MD 06/12/21 13:31 Objective Data Lab / Micro Data Result Diagrams: 06/12/21 05:38 06/12/21 05:38 Assessment & Plan Addt'l Comments This patient was seen in conjunction with ARUN Sy . I have independently interviewed and examined the patient and reviewed pertinent histo rical, laboratory, and other data. Please refer to ARUN Sy note for details of this patient's presentation, findings, and recommendations. I have reviewed ARUN Sy note and concur with documented findings. In brief, patient is a 81-year-old male with history of metastatic prostate CA who presented with abnormal labs and bilateral lower extremity swelling. Deepa ent was found to have acute kidney injury with hyperkalemia as well as anemia admitted to a monitored bed for subsequent management Physical Examination: GENERAL: Frail looking HEENT: Atraumatic; EYES; Anicteric, Normal Conjunctiva NECK; supple, normal thyroid, RESPIRATORY: Diminished to auscultation CARDIOVASCULAR: Regular S1 S2, GI: soft, normoactive bowel sounds, : No Renal angle tenderness; EXTREMITIES: edema, no clubbing, MUSCULOSKELETAL: no muscle wasting NEURO: Awake; no lateralizing signs. SKIN: No Rash PSYCH; Flat affect Assessment: 1. Acute kidney injury 2. Hyperkalemia 3. Anemia of chronic disorder 4. Metastatic prostate CA 5. Bilateral hydronephrosis 4. Anasarca 5. DVT prophylaxis Recommendations: 1. I have discussed the results of my overview and impressions with the patient 2. Options for management were reviewed Total time spent by myself and the advanced practice practitioner evaluating patient, reviewing labs, subsequent management decisions, discussion with patient as well as other providers 45 minutes ( 25 of which was spent by myself) Charges/Coding Visit Charges Inpatient E&M: 67210 Subs Hosp L3
[2021-06-12 14:45] LABS: Iron 35 ug/dL (65-175); Iron Binding Capacity,Total 133 ug/dL (250-450); PERCENT IRON SATURATION 26.3 % (15.0-55.0)
[2021-06-12] MEDS: Acetaminophen 325 MG Tablet 650 MG PO (16:43)
[2021-06-12 17:01] LABS: Bedside Glucose 117 mg/dL (74-106)
[2021-06-12 17:17] LABS: Hematocrit 26.4 % (40-54); Hemoglobin 8.3 g/dL (13.0-16.5)
--- NOTE | 2021-06-12 21:05 | EKG12_ITS ---
Test Reason : CP Blood Pressure : / mmHG Vent. Rate : 102 BPM Atrial Rate : 102 BPM P-R Int : 160 ms QRS Dur : 088 ms QT Int : 326 ms P-R-T Axes : 036 004 053 degrees QTc Int : 424 ms Sinus tachycardia Otherwise normal ECG When compared with ECG of 11-JUN-2021 13:14, MANUAL COMPARISON REQUIRED, DATA IS UNCONFIRMED Confirmed by INA DELA CRUZ, SAMARIA ([id number]), news assignment editor SYLVESTER ROSENBERG ([id number]) on 06/14/2021 11:19:13 AM Referred By: DEBRA Confirmed By:SAMARIA BUCKLEY MD
[2021-06-12 21:28] LABS: Hematocrit 28.3 % (40-54); Hemoglobin 8.7 g/dL (13.0-16.5)
[2021-06-12] MEDS: Methadone 10 MG Tablet PO (22:56)
[2021-06-12] MEDS: amLODIPine 5 MG Tablet PO (22:57)
[2021-06-12] MEDS: Metoprolol Tartrate 25 MG Tablet 12.5 MG PO (22:57)
[2021-06-12] MEDS: Atorvastatin Calcium 40 MG Tablet PO (22:57)
[2021-06-12] MEDS: MELATONIN 10 MG TABLET PO (22:57)
[2021-06-12] MEDS: Mirtazapine 15 MG Tablet PO (22:57)
[2021-06-13] VITALS (10 sets, daily range): BP systolic 135–163; BP diastolic 56–67; PULSE 87–102; RESP 12–20; TEMP 36.7–37.2; O2SAT 92–97; BMI 26.6
[2021-06-13 06:47] LABS: Absolute Lymphocyte Count 1.13 X10^3/uL (0.83-4.51); Absolute Neutrophil Count 5.6 X10^3/uL (2.0-7.7); Basophil# 0.02 X10^3/uL; Basophil% 0.2 % (0-1); Eosinophil# 0.04 X10^3/uL; Eosinophils% 0.5 % (0-5); Hematocrit 24.6 % (40-54); Hemoglobin 7.7 g/dL (13.0-16.5); Lymphocyte # 1.13 X10^3/ul (0.83-4.51); Lymphocyte % 13.9 % (19-41); Mean Corp Hgb Conc 31.3 g/dL (32-36); Mean Corpuscular Hgb 28.3 pg (27.0-32.0); Mean Corpuscular Volume 90.4 fL (80-94); Mean Platelet Vol. 9.9 fl (6.2-12.0); Monocyte# 0.98 X10^3/uL; Monocyte% 12.1 % (0-10); NRBC Flagged by Analyzer 0.4 % (0-5); Neutrophil # 5.56 X10^3/uL (2.7-7.7); Neutrophil % 68.5 % (47-70); POSITIVE MORPHOLOGY YES; Platelet Count 208 K/mm3 (150-450); RBC Distribution Width CV 16.1 % (11.6-14.6); RBC Distribution Width SD 53.4 fl (35.1-43.9); Red Blood Count 2.72 M/mm3 (4.6-6.2); White Blood Count 8.1 K/mm3 (4.4-11.0)
[2021-06-13 07:04] LABS: Differential Indicated SCAN CRITERIA MET
[2021-06-13 07:07] LABS: Anion Gap 9 (5-15); BUN 59 mg/dL (7-18); BUN/Creat Ratio 10.9 RATIO (10-20); Calcium,Total 7.8 mg/dL (8.5-10.1); Chloride 109 mmol/L (98-107); Creatinine, Serum 5.42 mg/dL (0.70-1.30); EST Glomerular Filtration Rate 11 mL/min (>60); Est Glom Filt Rate - Afr Amer 13 mL/min (>60); Estimated Creatinine Clearance 9.61 ml/min; Glucose 126 mg/dL (74-106); Potassium 5.1 mmol/L (3.5-5.1); Sodium Level 136 mmol/L (136-145)
[2021-06-13 07:23] LABS: Differential Comment SCANNED
[2021-06-13 07:50] LABS: Bacteria 0 SEEN /hpf (None Seen); Mucous, Urine 0 SEEN /hpf (<or=2+); Squamous Epithelial Cells - UA 0 SEEN /hpf (0-5); White Blood Cells 0 SEEN /hpf (0-5)
[2021-06-13 08:02] LABS: Urine Sodium 37 mmol/L (Not Establ.)
[2021-06-13 08:28] LABS: Color, Urine Yellow (Yellow); Glucose, Dipstick Normal (Normal); Ketone-Dipstick Negative (Negative); Leukocyte Esterase-Dipstick Negative /ul (Negative); Nitrite-Dipstick Negative (Negative); Occult Blood-Urine 10 /ul (Negative); Protein-Dipstick Negative (Negative); Specific Gravity, Urine 1.005 (1.002-1.030); Urine Bilirubin Dipstick Negative (Negative); Urine Clarity Clear (Clear); Urine Urobilinogen Normal (Normal)
[2021-06-13 08:38] LABS: Red Blood Cells-Urine 0-5 SEEN /hpf (0-5)
[2021-06-13] MEDS: Gabapentin 300 MG Capsule PO ×2 (08:41→21:01)
[2021-06-13] MEDS: Metoprolol Tartrate 25 MG Tablet 12.5 MG PO ×2 (08:41→21:00)
[2021-06-13] MEDS: Calcium Carbonate 500 MG Tablet PO (08:41)
[2021-06-13] MEDS: Ferrous Sulfate 325 MG Tablet PO (08:41)
[2021-06-13] MEDS: amLODIPine 5 MG Tablet PO (08:41)
[2021-06-13] MEDS: Methadone 10 MG Tablet PO ×2 (08:46→21:00)
--- NOTE | 2021-06-13 09:17 | PN.HOSP_ITS ---
Documented by User: Precious Rosa NP, [employer] TE[employer]ER-C 06/13/21 09:30 Subjective Subjective Patient seen and examined. Drowsy this morning. Denies symptoms or complaints. Objective Data Objective Data Vital Signs: Vital Signs Temp Pulse Resp BP Pulse Ox 98.1 F 91 16 153/62 H 94 06/13/21 08:30 06/13/21 08:41 06/13/21 08:30 06/13/21 08:41 06/13/21 08:30 Oxygen Flow Rate (L/min) 2 Oxygen Delivery Method Nasal Cannula Weight: 159 lb 12.798 oz Body Mass Index (BMI) 26.6 Intake & Output: Intake and Output for Last 24 Hours 06/11/21 06/12/21 06/14/21 23:59 23:59 00:59 Intake Total 280 / 280 4020 / 4020 Output Total 1270 / 1270 Balance 280 / 280 2750 / 2750 Lab / Micro Data Result Diagrams: 06/13/21 06:18 06/13/21 06:18 Labs: Laboratory Results - last 24 hr 06/12/21 05:38: Iron 35 L, TIBC 133 L, Iron Saturation 26.3, Folate 10.40 06/12/21 07:15: Blood Type AB POSITIVE, Antibody Screen NEGATIVE, Crossmatch See Detail 06/12/21 16:51: Hgb 8.3 L, Hct 26.4 L 06/12/21 16:54: POC Glucose 117 H 06/12/21 21:19: Hgb 8.7 L, Hct 28.3 L 06/13/21 06:18: WBC 8.1, RBC 2.72 L, Hgb 7.7 L, Hct 24.6 L, MCV 90.4, MCH 28.3, MCHC 31.3 L, RDW Std Deviation 53.4 H, RDW Coeff of Nery 16.1 H, Plt Count 208, MPV 9.9, Immature Gran % (Auto) 4.800 H, Neut % (Auto) 68.5, Lymph % (Auto) 13.9 L, [place] % (Auto) 12.1 H, Eos % (Auto) 0.5, Baso % (Auto) 0.2, Absolute Neuts (auto) 5.6, Absolute Lymphs (auto) 1.13, Nucleated RBC % 0.4, Differential Comment SCANNED 06/13/21 06:18: Sodium 136, Potassium 5.1, Chloride 109 H, Carbon Dioxide 18.0 L , Anion Gap 9, BUN 59 H, Creatinine 5.42 H, Estim Creat Clear Calc 9.61, Est GFR (MDRD) Af Amer 13 L, Est GFR (MDRD) Non-Af 11 L, BUN/Creatinine Ratio 10.9, Glucose 126 H, Calcium 7.8 L 06/13/21 07:31: Urine Color Yellow, Urine Clarity Clear, Urine pH 7.0, Ur Spe cific Friend 1.005, Urine Protein Negative, Urine Glucose (UA) Normal, Urine Ketones Negative, Urine Occult Blood 10 H, Urine Nitrite Negative, Urine Bilirubin Negative, Urine Urobilinogen Normal, Ur Leukocyte Esterase Negative, Urine RBC 0-5 SEEN, Urine WBC 0 SEEN, Ur Squamous Epith Cells 0 SEEN, Urine Bacteria 0 SEEN, Urine Mucus 0 SEEN 06/13/21 07:42: Ur Random Sodium 37, Urine Creatinine 36.00 Micro: Microbiology 06/12/21 15:15 Stool Stool Occult Blood (EDGARDO) - Final Occult Blood Positive Rhythm Strip Rhythm Strip: Sinus Rhythm Rate: 84 Ectopy: None Physical Exam Const alert, oriented x3 and no apparent distress Orientation / Consciousness: awake, oriented to person, oriented to place and oriented to time HEENT normocephalic Mouth: dry mucous membranes Eyes PERRL, EOMs intact bilaterally and conjunctivae normal Neck no lymphadenopathy Resp clear to auscultation bilaterally Auscultation: diminished lung sounds Cardio regular rate, regular rhythm and no murmurs Peripheral Pulses: pulses 2+ throughout GI normal to inspection, nondistended, normoactive bowel sounds, non-tender and non-distended Extremity normal to inspection General Extremity: edema bilateral lower extremity Skin no rashes or lesions noted Lesions: no lesions Rashes: no rashes Trauma: no lacerations or abrasions Neuro CN's II-XII intact bilaterally, no focal motor deficits, no sensory deficits noted and deep tendon reflexes 2+ bilaterally Psych mental status grossly normal and affect normal Assessment & Plan Assessment/Plan (1) Acute kidney failure: PLAN: 1. Acute kidney injury, obstructive uropathy with bilateral hydronephrosis-nephrology and urology following. Will likely need bilateral stents, plan for Monday. Urology to meet with patient and to further discuss. Urine studies pending. 2. Acute blood loss anemia on chronic anemia-S/P 1 unit PRBC. Stool positive for occult blood. IV PPI. H&H stable. Patient has been on high dose NSAIDs prior to admission. Consult GI. 3. Metastatic prostate cancer, bone mets-on hormonal and radiation therapy. Continue outpatient follow-up with radiation/oncologist. 4. Hyperkalemia-resolved, trend BMP. 5. Small bilateral pleural effusions/anasarca-likely related to malignancy. DVT prophylaxis-Lovenox subcu This patient was seen by ARUN Sy under the supervision of Dr. Beltran. Documented by User: Dr. Babar Beltran MD 06/13/21 10:31 Objective Data Lab / Micro Data Result Diagrams: 06/13/21 06:18 06/13/21 06:18 Assessment & Plan Addt'l Comments This patient was seen in conjunction with ARUN Sy . I have independently interviewed and examined the patient and reviewed pertinent historical, laboratory, and other data. Please refer to ARUN Sy note for details of this patient's presentation, findings, and recommendations. I have reviewed ARUN Sy note and concur with documented findings. In brief, patient is a 81-year-old male with history of metastatic prostate CA who presented with abnormal labs and bilateral lower extremity swelling. Patient was found to have acute kidney injury with hyperkalemia as well as anemia admitted to a monitored bed for subsequent management 06/13/2021; patient was transfused with 1 unit PRBC the day prior. Hemoglobin up to 7.7. No change in kidney function creatinine remains elevated at 5.42 with p otassium of 5.1. Patient is being seen by urology with plans for possible bilateral ureteral stent placement Physical Examination: GENERAL: Frail looking HEENT: Atraumatic; EYES; Anicteric, Normal Conjunctiva NECK; supple, normal thyroid, RESPIRATORY: Diminished to auscultation CARDIOVASCULAR: Regular S1 S2, GI: soft, normoactive bowel sounds, : No Renal angle tenderness; EXTREMITIES: edema, no clubbing, MUSCULOSKELETAL: no muscle wasting NEURO: Awake; no lateralizing signs. SKIN: No Rash PSYCH; Flat affect Assessment: 1. Acute kidney injury 2. Hyperkalemia 3. Anemia of chronic disorder 4. Metastatic prostate CA 5. Bilateral hydronephrosis 4. Anasarca 5. DVT prophylaxis Recommendations: 1. I have discussed the results of my overview and impressions with the patient 2. Options for management were reviewed Total time spent by myself and the advanced practice practitioner evaluating patient, reviewing labs, subsequent management decisions, discussion with patient as well as other providers 45 minutes ( 25 of which was spent by myself) Charges/Coding Visit Charges Inpatient E&M: 34940 [facility] Hosp L3
--- NOTE | 2021-06-13 12:02 | CON.PCM.UR_ITS ---
HPI Consult Data Date of Consult: 06/13/21 HPI Narrative HPI Narrative: ANUEL PIZARRO, is a 81 M who presents with bilateral hydronephrosis worsening renal function history of metastatic prostate cancer on hormone deprivation therapy also had radiation therapy he has a lot of swelling in extremities due to his poor renal function again explained the benefits of placing stents bilaterally also explained the difficulty that can happen in placing his stents hopefully it will go well plan for cystoscopy bilateral retrograde pyelograms and stent placement tomorrow in the operating room n.p.o. at midnight consent will be obtained. [facility] Medical History (Updated 06/12/21 @ 11:[address] Arvind Darby MD) Asthma Bone cancer Chronic pain Diverticulitis Former smoker Myocardial infarct Home Medications Metamucil 1 tbsp PO/SL DAILY PRN 06/12/21 [History Last Taken Unknown] PreserVision AREDS 1 tab PO/SL BID 06/12/21 [History Last Taken Unknown] amlodipine 5 mg PO DAILY 06/12/21 [History Last Taken Unknown] ascorbate calcium (vitamin C) [Tarah-C] 1,000 mg PO DAILY 06/12/21 [History Last Taken Unknown] aspirin [Adult Low Dose Aspirin] 81 mg PO DAILY 06/12/21 [History Last Taken Unknown] calcium citrate 950 mg PO DAILY 06/12/21 [History Last Taken Unknown] carboxymethylcellulose-glycern [Refresh Relieva] 1 drp RIGHT EYE 4X/DAY 06/12/21 [History Last Taken Unknown] cholecalciferol (vitamin D3) 250 mcg PO DAILY 06/12/21 [History Last Taken Unknown] clotrimazole-betamethasone 1 applic TOPICAL BID 06/12/21 [History Last Taken Unknown] coenzyme Q10 [Co Q-10] 300 mg PO BID 06/12/21 [History Last Taken Unknown] cyanocobalamin (vitamin B-12) [Vitamin B-12] 1,000 mcg PO DAILY 06/12/21 [History Last Taken Unknown] diphenoxylate-atropine 1 - 2 tab PO Q6H PRN 06/12/21 [History Last Taken Unknown] enzalutamide [Xtandi] 160 mg PO DAILY 06/12/21 [History Last Taken Unknown] famotidine 20 mg PO 4X/DAY 06/12/21 [History Last Taken Unknown] ferrous sulfate 325 mg PO DAILY 06/12/21 [History Last Taken Unknown] furosemide [Lasix] 20 mg PO DAILY 06/12/21 [History Last Taken Unknown] gabapentin 300 mg PO BID 06/12/21 [History Last Taken Unknown] nyzlvjiaoem-lzqpocxna-qlz C-Mn [Glucosamine 1500 Complex] 3 cap PO DAILY 06/12/21 [History Last Taken Unknown] hydrocodone-acetaminophen 1 tab PO Q4H PRN 06/12/21 [History Last Taken Unknown] lisinopril 60 mg PO DAILY 06/12/21 [History Last Taken Unknown] loperamide 2 mg PO PRN 06/12/21 [History Last Taken Unknown] loratadine [Claritin] 10 mg PO DAILY 06/12/21 [History Last Taken Unknown] magnesium oxide [MagOx] 400 mg PO DAILY 06/12/21 [History Last Taken Unknown] melatonin 10 mg PO QHS 06/12/21 [History Last Taken Unknown] methadone 10 mg PO BID 06/12/21 [History Last Taken Unknown] methylsulfonylmethane [MSM] 1,000 mg PO DAILY 06/12/21 [History Last Taken Unknown] metoprolol tartrate 12.5 mg PO BID 06/12/21 [History Last Taken Unknown] mirabegron [Myrbetriq] 50 mg PO DAILY 06/12/21 [History Last Taken Unknown] mirtazapine 15 mg PO QHS 06/12/21 [History Last Taken Unknown] nffnchpkkfdy-yvairstt-vsvddd [Centrum Silver] 1 tab PO DAILY 06/12/21 [History Last Taken Unknown] naloxone 4 mg INTRANASAL Q3M PRN 06/12/21 [History Last Taken Unknown] promethazine 25 mg PO Q6H PRN 06/12/21 [History Last Taken Unknown] pseudoephedrine HCl [Sudafed] 30 mg PO DAILY 06/12/21 [History Last Taken Unknown] resveratrol 250 mg PO DAILY 06/12/21 [History Last Taken Unknown] ribose kcal PO DAILY 06/12/21 [History Last Taken Unknown] rosuvastatin 20 mg PO DAILY 06/12/21 [History Last Taken Unknown] saw palmetto 450 mg PO DAILY 06/12/21 [History Last Taken Unknown] sennosides [senna] 8.6 mg PO QHS 06/12/21 [History Last Taken Unknown] vitamin B complex [B Complex] 1 tab PO DAILY 06/12/21 [History Last Taken Unknown] Allergy/AdvReac Type Severity Reaction Status Date / Time No Known Allergies Allergy Verified 06/11/21 12:22 Surgical History (Updated 06/11/21 @ 16:38 by Anum Wheeler) History of coronary artery stent placement Social History Smoking Status: Former smoker Lab / Micro Data Result Diagrams: 06/13/21 06:18 06/13/21 06:18 Labs: Laboratory Results - last 24 hr 06/12/21 05:38: Iron 35 L, TIBC 133 L, Iron Saturation 26.3, Folate 10.40 06/12/21 07:15: Blood Type AB POSITIVE, Antibody Screen NEGATIVE, Crossmatch See Detail 06/12/21 16:51: Hgb 8.3 L, Hct 26.4 L 06/12/21 16:54: POC Glucose 117 H 06/12/21 21:19: Hgb 8.7 L, Hct 28.3 L 06/13/21 06:18: WBC 8.1, RBC 2.72 L, Hgb 7.7 L, Hct 24.6 L, MCV 90.4, MCH 28.3, MCHC 31.3 L, RDW Std Deviation 53.4 H, RDW Coeff of Nery 16.1 H, Plt Count 208, MPV 9.9, Immature Gran % (Auto) 4.800 H, Neut % (Auto) 68.5, Lymph % (Auto) 13.9 L, [place] % (Auto) 12.1 H, Eos % (Auto) 0.5, Baso % (Auto) 0.2, Absolute Neuts (auto) 5.6, Absolute Lymphs (auto) 1.13, Nucleated RBC % 0.4, Differential Comment SCANNED 06/13/21 06:18: Sodium 136, Potassium 5.1, Chloride 109 H, Carbon Dioxide 18.0 L , Anion Gap 9, BUN 59 H, Creatinine 5.42 H, Estim Creat Clear Calc 9.61, Est GFR (MDRD) Af Amer 13 L, Est GFR (MDRD) Non-Af 11 L, BUN/Creatinine Ratio 10.9, Glucose 126 H, Calcium 7.8 L 06/13/21 07:31: Urine Color Yellow, Urine Clarity Clear, Urine pH 7.0, Ur Specific [place] 1.005, Urine Protein Negative, Urine Glucose (UA) Normal, Urine Ketones Negative, Urine Occult Blood 10 H, Urine Nitrite Negative, Urine Bilirubin Negative, Urine Urobilinogen Normal, Ur Leukocyte Esterase Negative, Urine RBC 0-5 SEEN, Urine WBC 0 SEEN, Ur Squamous Epith Cells 0 SEEN, Urine Bacteria 0 SEEN, Urine Mucus 0 SEEN 06/13/21 07:42: Ur Random Sodium 37, Urine Creatinine 36.00 Micro: Microbiology 06/12/21 15:15 Stool Stool Occult Blood (EDGARDO) - Final Occult Blood Positive Rhythm Strip Rhythm Strip: Sinus Rhythm Rate: 84 Ectopy: None
[2021-06-13 13:08] LABS: Magnesium 1.8 mg/dL (1.6-2.6)
--- NOTE | 2021-06-13 14:26 | EX.PCM.CON.G ---
HPI Consult Data Date of Consult: 06/13/21 HPI Narrative HPI Narrative: ANUEL PIZARRO, is a 81 M with a PMH of metastatic prostate cancer, CAD status post NC and prior history of heart failure. The patient presented to the hospital with worsening edema of his lower extremities bilaterally. Edema started around 2 weeks prior to presentation in the left leg. Edema progressed to the right leg a week later and eventually to the scrotum. The patient denies decreased urine output. He does report increasing urinary frequency. There has been no hesitation, gross hematuria, or dribbling. The patient is being treated with radiation therapy for prostate cancer. He has a diagnosed himself metastatic prostate cancer to the bone. 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 He is not currently on chemotherapy due to side effects. Nephrology and urology were consulted on him because he was diagnosed with a postobstructive uropathy and is scheduled to get bilateral ureteral stents placed tomorrow. His serum creatinine was elevated to 5.17 with severe hyperkalemia on admission. His creatinine still remains elevated but his hyperkalemia along with a metabolic acidosis has improved. On admission his hemoglobin was found to be 6.3. He received 2 units of packed red blood cells with took his hemoglobin up to 8. His hemoglobin is back down to 7. His stools were checked for blood and it were positive. He also has a history of severe sigmoid diverticulosis status post Ventura's procedure with end colostomy status post reversal approximately a year ago. He has been having some dark stools on occasion. He does take vitamin C and nonsteroidals for his bone pain. [facility] Medical History (Updated 06/13/21 @ 14:[address] Rand Friend, ) Asthma Bone cancer Chronic pain Diverticulitis Former smoker Myocardial infarct Home Medications Metamucil 1 tbsp PO/SL DAILY PRN 06/12/21 [History Last Taken Unknown] PreserVision AREDS 1 tab PO/SL BID 06/12/21 [History Last Taken Unknown] amlodipine 5 mg PO DAILY 06/12/21 [History Last Taken Unknown] ascorbate calcium (vitamin C) [Tarah-C] 1,000 mg PO DAILY 06/12/21 [History Last Taken Unknown] aspirin [Adult Low Dose Aspirin] 81 mg PO DAILY 06/12/21 [History Last Taken Unknown] calcium citrate 950 mg PO DAILY 06/12/21 [History Last Taken Unknown] carboxymethylcellulose-glycern [Refresh Relieva] 1 drp RIGHT EYE 4X/DAY 06/12/21 [History Last Taken Unknown] cholecalciferol (vitamin D3) 250 mcg PO DAILY 06/12/21 [History Last Taken Unknown] clotrimazole-betamethasone 1 applic TOPICAL BID 06/12/21 [History Last Taken Unknown] coenzyme Q10 [Co Q-10] 300 mg PO BID 06/12/21 [History Last Taken Unknown] cyanocobalamin (vitamin B-12) [Vitamin B-12] 1,000 mcg PO DAILY 06/12/21 [History Last Taken Unknown] diphenoxylate-atropine 1 - 2 tab PO Q6H PRN 06/12/21 [History Last Taken Unknown] famotidine 20 mg PO 4X/DAY 06/12/21 [History Last Taken Unknown] ferrous sulfate 325 mg PO DAILY 06/12/21 [History Last Taken Unknown] furosemide [Lasix] 20 mg PO DAILY 06/12/21 [History Last Taken Unknown] gabapentin 300 mg PO BID 06/12/21 [History Last Taken Unknown] xkmjuttsrix-ggjaaojtx-vsg C-Mn [Glucosamine 1500 Complex] 3 cap PO DAILY 06/12/21 [History Last Taken Unknown] hydrocodone-acetaminophen 1 tab PO Q4H PRN 06/12/21 [History Last Taken Unknown] lisinopril 60 mg PO DAILY 06/12/21 [History Last Taken Unknown] loperamide 2 mg PO PRN 06/12/21 [History Last Taken Unknown] loratadine [Claritin] 10 mg PO DAILY 06/12/21 [History Last Taken Unknown] magnesium oxide [MagOx] 400 mg PO DAILY 06/12/21 [History Last Taken Unknown] melatonin 10 mg PO QHS 06/12/21 [History Last Taken Unknown] methadone 10 mg PO BID 06/12/21 [History Last Taken Unknown] methylsulfonylmethane [MSM] 1,000 mg PO DAILY 06/12/21 [History Last Taken Unknown] metoprolol tartrate 12.5 mg PO BID 06/12/21 [History Last Taken Unknown] mirabegron [Myrbetriq] 50 mg PO DAILY 06/12/21 [History Last Taken Unknown] mirtazapine 15 mg PO QHS 06/12/21 [History Last Taken Unknown] dyrdsumjtwgj-bhhxpcor-blmdfw [Centrum Silver] 1 tab PO DAILY 06/12/21 [History Last Taken Unknown] naloxone 4 mg INTRANASAL Q3M PRN 06/12/21 [History Last Taken Unknown] promethazine 25 mg PO Q6H PRN 06/12/21 [History Last Taken Unknown] pseudoephedrine HCl [Sudafed] 30 mg PO DAILY 06/12/21 [History Last Taken Unknown] resveratrol 250 mg PO DAILY 06/12/21 [History Last Taken Unknown] ribose kcal PO DAILY 06/12/21 [History Last Taken Unknown] rosuvastatin 20 mg PO DAILY 06/12/21 [History Last Taken Unknown] saw palmetto 450 mg PO DAILY 06/12/21 [History Last Taken Unknown] sennosides [senna] 8.6 mg PO QHS 06/12/21 [History Last Taken Unknown] vitamin B complex [B Complex] 1 tab PO DAILY 06/12/21 [History Last Taken Unknown] Allergy/AdvReac Type Severity Reaction Status Date / Time No Known Allergies Allergy Verified 06/11/21 12:22 Surgical History (Updated 06/11/21 @ 16:38 by Anum Wheeler) History of coronary artery stent placement Social History Smoking Status: Former smoker ROS Review of Systems ROS Unobtainable: other Constitutional Constitutional: Denies fatigue, fever(s), poor appetite, weight gain or weight loss ENT HEENT: Denies mouth lesions Cardiovascular Cardiovascular: Denies abdominal bloating, abdominal edema or abdominal pain Respiratory/Chest Respiratory/Chest: Denies change in mental status, change in phlegm color, chest congestion or chest tightness Gastrointestinal Gastrointestinal: Reports melena Genitourinary Genitourinary: Denies abdominal discomfort, burning urination or itching Musculoskeletal Musculoskeletal: Reports as per HPI; Denies muscle weakness or myalgias Integumentary Integumentary: Denies jaundice Neurologic Neurologic: Denies lack of coordination or weakness Psychiatric Psychiatric: Denies confusion, depression, memory loss, mood swings, paranoia or suicidal ideation Endocrine Endocrinology: Denies systems reviewed and no addt'l complaints, except as documented Hematologic/Lymphatic Hematologic/Lymphatic: Denies anemia, easy bleeding, easy bruising or lymphadenopathy Allergic/Immunologic Allergic/Immunologic: Denies systems reviewed and no addt'l complaints, except as documented Physical Exam Const alert General Appearance: cooperative Orientation / Consciousness: oriented to person HEENT hearing grossly normal bilaterally Head and Scalp: normal to inspection Face and Sinus: face symmetric Nose: external nose normal Mouth: oral and palatal mucosa normal Eyes conjunctivae normal General Eye: normal appearance of both eyes Neck full ROM General: normal visual inspection Lymph Lymphatic: no lymphadenopathy noted Chest inspection of chest normal and palpation of chest normal Chest: symmetrical chest wall rise Resp normal respiratory effort Effort and Inspection: able to speak in complete sentences Cardio regular rate GI non-distended Percussion: normal to percussion Rectal Exam: deferred Neuro Speech: speech normal Gait (Neuro): normal gait Lab / Micro Data Result Diagrams: 06/13/21 06:18 06/13/21 06:18 Labs: Laboratory Results - last 24 hr 06/12/21 05:38: Iron 35 L, TIBC 133 L, Iron Saturation 26.3, Folate 10.40 06/12/21 07:15: Crossmatch See Detail 06/12/21 16:51: Hgb 8.3 L, Hct 26.4 L 06/12/21 16:54: POC Glucose 117 H 06/12/21 21:19: Hgb 8.7 L, Hct 28.3 L 06/13/21 06:18: WBC 8.1, RBC 2.72 L, Hgb 7.7 L, Hct 24.6 L, MCV 90.4, MCH 28.3, MCHC 31.3 L, RDW Std Deviation 53.4 H, RDW Coeff of Nery 16.1 H, Plt Count 208, MPV 9.9, Immature Gran % (Auto) 4.800 H, Neut % (Auto) 68.5, Lymph % (Auto) 13.9 L, [place] % (Auto) 12.1 H, Eos % (Auto) 0.5, Baso % (Auto) 0.2, Absolute Neuts (auto) 5.6, Absolute Lymphs (auto) 1.13, Nucleated RBC % 0.4, Differential Comment SCANNED 06/13/21 06:18: Sodium 136, Potassium 5.1, Chloride 109 H, Carbon Dioxide 18.0 L, Anion Gap 9, BUN 59 H, Creatinine 5.42 H, Estim Creat Clear Calc 9.61, Est GFR (MDRD) Af Amer 13 L, Est GFR (MDRD) Non-Af 11 L, BUN/Creatinine Ratio 10.9, Glucose 126 H, Calcium 7.8 L 06/13/21 06:18: Magnesium 1.8 06/13/21 07:31: Urine Color Yellow, Urine Clarity Clear, Urine pH 7.0, Ur Specific [place] 1.005, Urine Protein Negative, Urine Glucose (UA) Normal, Urine Ketones Negative, Urine Occult Blood 10 H, Urine Nitrite Negative, Urine Bilirubin Negative, Urine Urobilinogen Normal, Ur Leukocyte Esterase Negative, Urine RBC 0-5 SEEN, Urine WBC 0 SEEN, Ur Squamous Epith Cells 0 SEEN, Urine Bacteria 0 SEEN, Urine Mucus 0 SEEN 06/13/21 07:42: Ur Random Sodium 37, Urine Creatinine 36.00 Micro: Microbiology 06/12/21 15:15 Stool Stool Occult Blood (EDGARDO) - Final Occult Blood Positive Rhythm Strip Rhythm Strip: Sinus Rhythm Rate: 84 Ectopy: None Assessment & Plan Assessment/Plan (1) Anemia: PLAN: The differential diagnosis for his acute on chronic anemia does include GI blood loss secondary to an anastomotic GI bleed in the sigmoid colon. Also dual diagnosis would be peptic ulcer disease in the stomach or duodenum secondary to nonsteroidal administration in the setting of poor healing and vitamin C. I would caution a lot of antisecretory therapy and proton pump inhibitor inhibition in the setting of acute renal failure. He should undergo an upper and lower endoscopy to evaluate his GI tract for acute on chronic GI blood loss. He said he will think about what he wants to do after he has the bilateral stents placed because him and his are considering hospice. I will see the patient and continue to follow him eyes in the hospital. Thank you very much for this consultation. Charges/Coding Visit Charges Inpatient E&M: 77769 Init Hosp L3
[2021-06-13 14:36] LABS: Hematocrit 27.7 % (40-54); Hemoglobin 8.4 g/dL (13.0-16.5)
[2021-06-13] MEDS: Atorvastatin Calcium 40 MG Tablet PO (21:00)
[2021-06-13] MEDS: MELATONIN 10 MG TABLET PO (21:01)
[2021-06-13] MEDS: Mirtazapine 15 MG Tablet PO (21:01)
[2021-06-14] VITALS (29 sets, daily range): BP systolic 128–168; BP diastolic 54–75; PULSE 84–108; RESP 16–20; TEMP 36.3–37.8; O2SAT 88–99
[2021-06-14] MEDS: Albuterol 2.5 MG/3 ML VIAL.NEB. INHALATION (05:02)
[2021-06-14 05:22] LABS: Absolute Neutrophil Count 5.5 X10^3/uL (2.0-7.7); Basophil# 0.03 X10^3/uL; Basophil% 0.4 % (0-1); Eosinophil# 0.07 X10^3/uL; Eosinophils% 0.9 % (0-5); Hematocrit 24.6 % (40-54); Hemoglobin 7.4 g/dL (13.0-16.5); Mean Corp Hgb Conc 30.1 g/dL (32-36); Mean Corpuscular Hgb 27.5 pg (27.0-32.0); Mean Corpuscular Volume 91.4 fL (80-94); Monocyte# 1.01 X10^3/uL; Monocyte% 12.3 % (0-10); NRBC Flagged by Analyzer 0.4 % (0-5); Neutrophil # 5.47 X10^3/uL (2.7-7.7); Neutrophil % 66.5 % (47-70); Platelet Count 203 K/mm3 (150-450); RBC Distribution Width CV 16.5 % (11.6-14.6); RBC Distribution Width SD 54.8 fl (35.1-43.9); Red Blood Count 2.69 M/mm3 (4.6-6.2); White Blood Count 8.2 K/mm3 (4.4-11.0)
[2021-06-14 05:33] LABS: International Normalized Ratio 1.6; Prothrombin Time (Protime)PT. 18.7 SECONDS (11.7-14.9)
[2021-06-14 05:34] LABS: Partial Thromboplast Time 41.9 Seconds (24.1-36.2)
[2021-06-14 05:41] LABS: Anion Gap 9 (5-15); BUN 66 mg/dL (7-18); BUN/Creat Ratio 11.9 RATIO (10-20); Calcium,Total 7.6 mg/dL (8.5-10.1); Chloride 110 mmol/L (98-107); Creatinine, Serum 5.54 mg/dL (0.70-1.30); EST Glomerular Filtration Rate 11 mL/min (>60); Est Glom Filt Rate - Afr Amer 13 mL/min (>60); Estimated Creatinine Clearance 9.41 ml/min; Glucose 121 mg/dL (74-106); Potassium 5.5 mmol/L (3.5-5.1); Sodium Level 138 mmol/L (136-145)
--- NOTE | 2021-06-14 05:55 | EKG12_ITS ---
Test Reason : AN EKG Blood Pressure : / mmHG Vent. Rate : 100 BPM Atrial Rate : 100 BPM P-R Int : 158 ms QRS Dur : 086 ms QT Int : 306 ms P-R-T Axes : 058 036 055 degrees QTc Int : 394 ms Normal sinus rhythm Normal ECG No previous ECGs available Confirmed by INA DELA CURZ, SAMARIA ([id number]), sound editor SYLVESTER ROSENBERG ([id number]) on 06/14/2021 11:23:32 AM Referred By: Confirmed By:SAMARIA BUCKLEY MD
--- NOTE | 2021-06-14 06:27 | PCM.HOSP.N ---
Hospitalist Note Reviewing CT imaging w/ noted read w/ suspected distal descending and proximal sigmoid diverticulitis without complication. Given onset fever, will add zosyn to patient medications.
[2021-06-14] MEDS: Acetaminophen 325 MG Tablet 650 MG PO (06:36)
[2021-06-14] MEDS: 0.9% Saline Lock 10 ML Syringe IV ×2 (06:56→15:04)
[2021-06-14] MEDS: Piperacil/Tazobactam 3.375 GM/50 ML ML IV ×2 (06:56→22:44)
[2021-06-14 08:45] LABS: Vitamin B12 1407 pg/mL (211-911)
[2021-06-14] MEDS: Methadone 10 MG Tablet PO ×2 (10:06→22:52)
[2021-06-14] MEDS: Glycerin/Hypromellose/PEG400 15 ml Bottle 1 DRP RIGHT EYE (10:07)
[2021-06-14] MEDS: Metoprolol Tartrate 25 MG Tablet 12.5 MG PO ×2 (10:08→22:47)
[2021-06-14] MEDS: Gabapentin 300 MG Capsule PO ×2 (10:08→22:48)
[2021-06-14] MEDS: amLODIPine 5 MG Tablet PO (10:08)
--- NOTE | 2021-06-14 10:48 | PN.RENAL_ITS ---
Subjective Subjective Following for TIERA Patient resting in bed, denies any nausea. Complains of feeling thirsty, he is NPO for procedure. No overnight events. Objective Data Objective Data Vital Signs: Vital Signs Temp Pulse Resp BP Pulse Ox 99.7 F H 93 20 H 147/64 H 94 06/14/21 09:50 06/14/21 10:08 06/14/21 09:50 06/14/21 10:08 06/14/21 09:50 Oxygen Flow Rate (L/min) 4 Oxygen Delivery Method Nasal Cannula Weight: 72.484 kg Body Mass Index (BMI) 26.6 Intake & Output: Intake and Output for Last 24 Hours 06/12/21 06/13/21 06/14/21 22:59 23:59 23:59 Intake Total 0 / 0 Output Total Balance 0 / 0 Lab / Micro Data Result Diagrams: 06/14/21 04:37 06/14/21 04:37 Labs: Laboratory Results - last 24 hr 06/12/21 07:15: Crossmatch See Detail 06/12/21 16:51: Vitamin B12 1407 H 06/13/21 06:18: Magnesium 1.8 06/13/21 14:22: Hgb 8.4 L, Hct 27.7 L 06/14/21 04:37: WBC 8.2, RBC 2.69 L, Hgb 7.4 L, Hct 24.6 L, MCV 91.4, MCH 27.5, MCHC 30.1 L, RDW Std Deviation 54.8 H, RDW Coeff of Nery 16.5 H, Plt Count 203, MPV 10.0, Immature Gran % (Auto) 2.900 H, Neut % (Auto) 66.5, Lymph % (Auto) 17.0 L, [place] % (Auto) 12.3 H, Eos % (Auto) 0.9, Baso % (Auto) 0.4, Absolute Neuts (auto) 5.5, Absolute Lymphs (auto) 1.40, Nucleated RBC % 0.4 06/14/21 04:37: Sodium 138, Potassium 5.5 H, Chloride 110 H, Carbon Dioxide 19.0 L, Anion Gap 9, BUN 66 H, Creatinine 5.54 H, Estim Creat Clear Calc 9.41, Est GFR (MDRD) Af Amer 13 L, Est GFR (MDRD) Non-Af 11 L, BUN/Creatinine Ratio 11.9, Glucose 121 H, Calcium 7.6 L 06/14/21 04:37: PT 18.7 H, INR 1.6, APTT 41.9 H Micro: Microbiology 06/14/21 07:40 Nasal Secretion SARS-CoV-2 Antigen (Rapid) - Final 06/12/21 15:15 Stool Stool Occult Blood (EDGARDO) - Final Occult Blood Positive Rhythm Strip Rhythm Strip: Sinus Rhythm Rate: 84 Ectopy: None Physical Exam Narrative General: Alert and oriented x3, no apparent distress. HEENT: Normocephalic, atraumatic. Mucous membrane dry. PERRLA, EOMI. Hearing is intact. Heart: Normal S1, S2. No rubs, murmurs or gallops. Lungs: Clear anteriorly Abdomen: Normal bowel sound, soft, nontender Extremities: ROBBI wraps to b/l lower legs, knees to feet. + edema of the lower extremities bilaterally. Musculoskeletal: Full passive range of motion. There is no joint swelling. Skin: Skin is warm and dry. Assessment & Plan Assessment/Plan (1) Acute kidney injury: PLAN: -No documented baseline serum creatinine on record here at [facility] and patient's daughter stated serum creatinine was normal prior to the initiation of radiation therapy 2 weeks ago. - SCr 5.1mg/dL on admission and today is 5.54mg/dL. No significant uremic symptoms, patient is nonoliguric, though K+ is mildly elevated, bicarb acceptable there is no acute indication for ATTENDING ANESTHESIOLOGIST. Hopefully will see improvement in renal function after stents placed. -The cause of TIERA is most likely due to obstruction since the patient has bilateral hydronephrosis which is new. The patient's daughter also tells me that imaging study of the system was normal prior to radiation therapy as well. -Other causes of TIERA is also possible. The patient had been on relatively high dose of NSAIDs prior to admission. His oral intake has been poor. Therefore, hemodynamically mediated TIERA from volume depletion made worse by NSAIDs is also possible. It is unclear whether the patient was on nidum-effwnfmiwfa-ubfcrwhgbtx nayeli prior to admission or not. -urinalysis and urine indices: negative protein and RBC, urine Na 37 -Unfortunately, because of pleural effusion and anasarca, we are limited in terms of how much fluid we can give the patient safely. Albumin is 2.3. -I asked the patient to continue to push solute and fluid intake on his own for now. -Avoid further NSAIDs. Would not use ROBBI inhibitor or ARB for BP control for now. - Bps acceptable on metoprolol and norvasc. -Dr. Romo's plan to possibly stent both ureters. If renal function fails to improve, we will work-up his TIERA further. (2) Hyperkalemia: PLAN: -Hyperkalemia is likely due to TIERA and NSAID use. Unclear whether patient was on ROBBI inhibitor or ARB prior to admission -The patient was treated medically in the ED for hyperkalemia. K+ peaked 6.3, improved 5.1. Today K+ 5.5. He is NPO. Can give SPS 30gm once returns from procedure and diet resumed. Reviewed with patient foods patient should avoid for next day or so that are high in K+. (3) Metabolic acidosis: PLAN: -Metabolic acidosis is also likely due to TIERA. -There is no diarrhea. There is no need for supplemental sodium bicarbonate at this point. -We will continue to monitor serum bicarbonate. (4) Anemia: PLAN: -The patient likely has anemia due to chronic disease and possibly from malignancy being the bone. Getting PRBC again today, hgb 7.4. -We will defer decision to transfuse patient to hospital medicine service. GI has been consulted. (5) Prostate cancer metastatic to bone: PLAN: -The patient had been getting radiation therapy as outpatient prior to admission. -The patient is followed by Dr. Mejia Singh as outpatient.
--- NOTE | 2021-06-14 11:26 | PCM.PN.HOSP ---
Documented by User: Precious Rosa NP, [employer] 06/14/21 11:40 Subjective Subjective Patient seen and examined. Complains of dry mouth, denies other symptoms or complaints. Patient states his has been talking about him transitioning to hospice however patient states he is not ready for hospice. To undergo bilateral ureteral stents this afternoon. Objective Data Objective Data Vital Signs: Vital Signs Temp Pulse Resp BP Pulse Ox 97.5 F L 94 20 H 146/57 H 94 06/14/21 10:50 06/14/21 10:50 06/14/21 10:50 06/14/21 10:50 06/14/21 10:50 Oxygen Flow Rate (L/min) 4 Oxygen Delivery Method Nasal Cannula Weight: 159 lb 12.798 oz Body Mass Index (BMI) 26.6 Intake & Output: Intake and Output for Last 24 Hours 06/12/21 06/13/21 06/14/21 22:59 23:59 23:59 Intake Total 0 / 0 Output Total Balance 0 / 0 Lab / Micro Data Result Diagrams: 06/14/21 04:37 06/14/21 04:37 Labs: Laboratory Results - last 24 hr 06/12/21 07:15: Crossmatch See Detail 06/12/21 16:51: Vitamin B12 1407 H 06/13/21 06:18: Magnesium 1.8 06/13/21 14:22: Hgb 8.4 L, Hct 27.7 L 06/14/21 04:37: WBC 8.2, RBC 2.69 L, Hgb 7.4 L, Hct 24.6 L, MCV 91.4, MCH 27.5, MCHC 30.1 L, RDW Std Deviation 54.8 H, RDW Coeff of Nery 16.5 H, Plt Count 203, MPV 10.0, Immature Gran % (Auto) 2.900 H, Neut % (Auto) 66.5, Lymph % (Auto) 17.0 L, Reagan % (Auto) 12.3 H, Eos % (Auto) 0.9, Baso % (Auto) 0.4, Absolute Neuts (auto) 5.5, Absolute Lymphs (auto) 1.40, Nucleated RBC % 0.4 06/14/21 04:37: Sodium 138, Potassium 5.5 H, Chloride 110 H, Carbon Dioxide 19.0 L, Anion Gap 9, BUN 66 H, Creatinine 5.54 H, Estim Creat Clear Calc 9.41, Est GFR (MDRD) Af Amer 13 L, Est GFR (MDRD) Non-Af 11 L, BUN/Creatinine Ratio 11.9, Glucose 121 H, Calcium 7.6 L 06/14/21 04:37: PT 18.7 H, INR 1.6, APTT 41.9 H Micro: Microbiology 06/14/21 07:40 Nasal Secretion SARS-CoV-2 Antigen (Rapid) - Final 06/12/21 15:15 Stool Stool Occult Blood (EDGARDO) - Final Occult Blood Positive Rhythm Strip Rhythm Strip: Sinus Rhythm Rate: 84 Ectopy: None Physical Exam Const alert, oriented x3 and no apparent distress Orientation / Consciousness: awake, oriented to person, oriented to place and oriented to time Nutritional Appearance: cachectic HEENT normocephalic Mouth: dry mucous membranes Eyes PERRL, EOMs intact bilaterally and conjunctivae normal Neck no lymphadenopathy Resp normal respiratory effort and clear to auscultation bilaterally Cardio regular rate, regular rhythm and no murmurs Peripheral Pulses: pulses 2+ throughout GI normal to inspection, nondistended, normoactive bowel sounds, non-tender and non-distended Extremity normal to inspection General Extremity: edema bilateral lower extremity Skin no rashes or lesions noted Lesions: no lesions Rashes: no rashes Trauma: no lacerations or abrasions Neuro CN's II-XII intact bilaterally, no focal motor deficits, no sensory deficits noted and deep tendon reflexes 2+ bilaterally Psych mental status grossly normal and affect normal Assessment & Plan Assessment/Plan (1) Acute kidney injury: (2) Anemia: PLAN: 1. Acute kidney injury, obstructive uropathy with bilateral hydronephrosis-nephrology and urology following. Plan for bilateral stents this afternoon. Anticipate improvement in kidney function following stent placement. Trend BMP. 2. Acute blood loss anemia on chronic anemia-S/P 2 unit PRBC. Stool positive for occult blood. IV PPI. Patient has been on high dose NSAIDs prior to admission. GI consulted. Plan for upper and lower endoscopy following urologic procedure. Trend CBC. 3. Metastatic prostate cancer, bone mets-on hormonal and radiation therapy. Continue outpatient follow-up with radiation/oncologist. 4. Hyperkalemia-plan for Kayexalate following n.p.o. for surgery. 5. Small bilateral pleural effusions/anasarca-likely related to malignancy. 6. Diverticulitis-noted on CT. Placed on IV Zosyn due to development of fever. DVT prophylaxis-Lovenox subcu This patient was seen by ARUN Sy under the supervision of Dr. Garnett. Time spent examining patient, reviewing data and subsequent management of care: 12 Minutes Documented by User: Dr. James Garnett, 06/14/21 13:39 Subjective Subjective Denies any complaints. Objective Data Lab / Micro Data Result Diagrams: 06/14/21 04:37 06/14/21 04:37 Physical Exam Const alert and no apparent distress Resp normal respiratory effort, no retractions, no use of accessory muscles and clear to auscultation bilaterally Cardio regular rate, regular rhythm, S1 normal heart sound and S2 normal heart sound GI normal to inspection, nondistended, normoactive bowel sounds, soft to palpation, non-tender and non-distended Extremity Extremity Narrative: bilateral legs wrapped--did not remove. Assessment & Plan Assessment/Plan (1) Acute kidney injury: (2) Anemia: (3) Hydronephrosis: PLAN: Patient seen and examined independently. Data and vitals reviewed. I agree with the above note by the nurse practitioner. 1. Acute kidney injury Ongoing and slightly worse Suspect due to hydronephrosis Nephrology and urology following No indication for renal replacement therapy at this time 2. Hydronephrosis, bilateral Plan for cystoscopy today 3. Metastatic prostate cancer Complicates matter 4. Pleural effusions and anasarca Likely multifactorial Limits IV fluids patient can receive 5. VTE prophylaxis with enoxaparin Greater than 25 minutes of which greater than for percent of time was constipation at bedside. Also clarified with the patient that he himself is not interested in hospice. I do not feel the patient is hospice appropriate but certainly palliative care would probably be a more appropriate option for him at this time. Charges/Coding Visit Charges Inpatient E&M: 01057 Subs Hosp L2
[2021-06-14 12:45] LABS: Pathologist Review Reviewed
[2021-06-14 12:49] LABS: Pathologist Review Reviewed
[2021-06-14] MEDS: Dextrose 5% 250 ML 999 ML IV (14:36)
[2021-06-14] MEDS: Insulin Lispro 10 UNIT in Syringe 0 ML 6 UNIT IV (14:36)
[2021-06-14] MEDS: Calcium Chloride 1 GM/10 ML Syringe 0.5 GM IV (15:04)
[2021-06-14 16:51] LABS: Bedside Glucose 110 mg/dL (74-106)
--- NOTE | 2021-06-14 16:51 | CON.PCM.UR_ITS ---
HPI Consult Data Date of Consult: 06/14/21 HPI Narrative HPI Narrative: ANUEL PIZARRO, is a 81 M who presents plan to place bilateral stents today the patient was agreeable with surgery will just awaiting for open surgical time. [facility] Medical History (Updated 06/14/21 @ 13:[address] James Garnett, DO) Asthma Bone cancer Chronic pain Diverticulitis Former smoker Myocardial infarct Home Medications Metamucil 1 tbsp PO/SL DAILY PRN 06/12/21 [History Last Taken Unknown] PreserVision AREDS 1 tab PO/SL BID 06/12/21 [History Last Taken Unknown] amlodipine 5 mg PO DAILY 06/12/21 [History Last Taken Unknown] ascorbate calcium (vitamin C) [Tarah-C] 1,000 mg PO DAILY 06/12/21 [History Last Taken Unknown] aspirin [Adult Low Dose Aspirin] 81 mg PO DAILY 06/12/21 [History Last Taken Unknown] calcium citrate 950 mg PO DAILY 06/12/21 [History Last Taken Unknown] carboxymethylcellulose-glycern [Refresh Relieva] 1 drp RIGHT EYE 4X/DAY 06/12/21 [History Last Taken Unknown] cholecalciferol (vitamin D3) 250 mcg PO DAILY 06/12/21 [History Last Taken Unknown] clotrimazole-betamethasone 1 applic TOPICAL BID 06/12/21 [History Last Taken Unknown] coenzyme Q10 [Co Q-10] 300 mg PO BID 06/12/21 [History Last Taken Unknown] cyanocobalamin (vitamin B-12) [Vitamin B-12] 1,000 mcg PO DAILY 06/12/21 [History Last Taken Unknown] diphenoxylate-atropine 1 - 2 tab PO Q6H PRN 06/12/21 [History Last Taken Unknown] famotidine 20 mg PO 4X/DAY 06/12/21 [History Last Taken Unknown] ferrous sulfate 325 mg PO DAILY 06/12/21 [History Last Taken Unknown] furosemide [Lasix] 20 mg PO DAILY 06/12/21 [History Last Taken Unknown] gabapentin 300 mg PO BID 06/12/21 [History Last Taken Unknown] ofmeijkzazv-xbvfvqzaq-cbu C-Mn [Glucosamine 1500 Complex] 3 cap PO DAILY 06/12/21 [History Last Taken Unknown] hydrocodone-acetaminophen 1 tab PO Q4H PRN 06/12/21 [History Last Taken Unknown] lisinopril 60 mg PO DAILY 06/12/21 [History Last Taken Unknown] loperamide 2 mg PO PRN 06/12/21 [History Last Taken Unknown] loratadine [Claritin] 10 mg PO DAILY 06/12/21 [History Last Taken Unknown] magnesium oxide [MagOx] 400 mg PO DAILY 06/12/21 [History Last Taken Unknown] melatonin 10 mg PO QHS 06/12/21 [History Last Taken Unknown] methadone 10 mg PO BID 06/12/21 [History Last Taken Unknown] methylsulfonylmethane [MSM] 1,000 mg PO DAILY 06/12/21 [History Last Taken Unknown] metoprolol tartrate 12.5 mg PO BID 06/12/21 [History Last Taken Unknown] mirabegron [Myrbetriq] 50 mg PO DAILY 06/12/21 [History Last Taken Unknown] mirtazapine 15 mg PO QHS 06/12/21 [History Last Taken Unknown] zhnmjfstwosd-cssjwqon-hjzxhd [Centrum Silver] 1 tab PO DAILY 06/12/21 [History Last Taken Unknown] naloxone 4 mg INTRANASAL Q3M PRN 06/12/21 [History Last Taken Unknown] promethazine 25 mg PO Q6H PRN 06/12/21 [History Last Taken Unknown] pseudoephedrine HCl [Sudafed] 30 mg PO DAILY 06/12/21 [History Last Taken Unknown] resveratrol 250 mg PO DAILY 06/12/21 [History Last Taken Unknown] ribose kcal PO DAILY 06/12/21 [History Last Taken Unknown] rosuvastatin 20 mg PO DAILY 06/12/21 [History Last Taken Unknown] saw palmetto 450 mg PO DAILY 06/12/21 [History Last Taken Unknown] sennosides [senna] 8.6 mg PO QHS 06/12/21 [History Last Taken Unknown] vitamin B complex [B Complex] 1 tab PO DAILY 06/12/21 [History Last Taken Unknown] Allergy/AdvReac Type Severity Reaction Status Date / Time No Known Allergies Allergy Verified 06/11/21 12:22 Surgical History (Updated 06/11/21 @ 16:38 by Anum Wheeler) History of coronary artery stent placement Social History Smoking Status: Former smoker Lab / Micro Data Result Diagrams: 06/14/21 04:37 06/14/21 04:37 Labs: Laboratory Results - last 24 hr 06/11/21 13:15: Diff Path Review Reviewed 06/12/21 05:38: Diff Path Review Reviewed 06/12/21 07:15: Crossmatch See Detail 06/12/21 16:51: Vitamin B12 1407 H 06/14/21 04:37: WBC 8.2, RBC 2.69 L, Hgb 7.4 L, Hct 24.6 L, MCV 91.4, MCH 27.5, MCHC 30.1 L, RDW Std Deviation 54.8 H, RDW Coeff of Nery 16.5 H, Plt Count 203, MPV 10.0, Immature Gran % (Auto) 2.900 H, Neut % (Auto) 66.5, Lymph % (Auto) 17.0 L, Fannin % (Auto) 12.3 H, Eos % (Auto) 0.9, Baso % (Auto) 0.4, Absolute Neuts (auto) 5.5, Absolute Lymphs (auto) 1.40, Nucleated RBC % 0.4 06/14/21 04:37: Sodium 138, Potassium 5.5 H, Chloride 110 H, Carbon Dioxide 19.0 L, Anion Gap 9, BUN 66 H, Creatinine 5.54 H, Estim Creat Clear Calc 9.41, Est GFR (MDRD) Af Amer 13 L, Est GFR (MDRD) Non-Af 11 L, BUN/Creatinine Ratio 11.9, Glucose 121 H, Calcium 7.6 L 06/14/21 04:37: PT 18.7 H, INR 1.6, APTT 41.9 H Micro: Microbiology 06/14/21 07:40 Nasal Secretion SARS-CoV-2 Antigen (Rapid) - Final Rhythm Strip Rhythm Strip: Sinus Rhythm Rate: 84 Ectopy: None
[2021-06-14] MEDS: Lactated Ringers 1,000 ML 15 ML IV (17:59)
--- NOTE | 2021-06-14 18:46 | PCM.OPRPT ---
Report of Operation Date of Procedure: 06/14/21 Pre-Operative Diagnosis: Advanced prostate cancer and bilateral hydronephrosis Post-Operative Diagnosis: The same Surgery/Procedure Performed:: Cystoscopy bilateral stent placement and retrograde pyelograms Description of Surgical Findings:: Patient was taken back to the operating room after induction of general anesthesia, the patient was placed in dorsolithotomy position. The urethra and genitals were prepped and draped in usual sterile fashion. Using a 21 Burkinan rigid cystourethroscope the entire length of the urethra was normal then went into the bladder. Identified the trigone the left and right ureteral orifice. I then cannulated the Left orifice and advanced a wire up into the kidney. I then backloaded a 5 Burkinan open ended catheter over the wire and injected contrast to delineate the anatomy. After the retrograde was performed I then used fluoroscopic images and guidance to advanced a wire up into the kidney and over the 0.038 glidewire I advanced a 6 Burkinan by 26 cm double pigtail stent. I then pulled the 0.038 Glidewire off and the stent coiled in the kidney bladder good position. I then cannulated the Right orifice and advanced a wire up into the kidney. I then backloaded a 5 Burkinan open ended catheter over the wire and injected contrast to delineate the anatomy. After the retrograde was performed I then used fluoroscopic images and guidance to advanced a wire up into the kidney and over the 0.038 glidewire I advanced a 6 Burkinan by 26 cm double pigtail stent. I then pulled the 0.038 Glidewire off and the stent coiled in the kidney bladder good position. The bladder was then drained. We confirmed the position of the stent by fluoroscopy. Patient anesthetic was reversed and was taken back to the PACU in good condition. Surgeon: zora Type of Anesthesia: General Drains: bilateral stent Admit VTE Documentation VTE Present on Admission: No VTE Mechan Device Prophylaxis: SCD's VTE Pharm Prophylaxis ordered?: No
[2021-06-14 19:47] LABS: Anion Gap 9 (5-15); BUN 60 mg/dL (7-18); BUN/Creat Ratio 11.5 RATIO (10-20); Chloride 113 mmol/L (98-107); Creatinine, Serum 5.23 mg/dL (0.70-1.30); EST Glomerular Filtration Rate 11 mL/min (>60); Est Glom Filt Rate - Afr Amer 14 mL/min (>60); Estimated Creatinine Clearance 9.96 ml/min; Glucose 114 mg/dL (74-106); Potassium 5.6 mmol/L (3.5-5.1); Sodium Level 141 mmol/L (136-145)
[2021-06-14] MEDS: Ferrous Sulfate 325 MG Tablet PO (22:45)
[2021-06-14] MEDS: Atorvastatin Calcium 40 MG Tablet PO (22:46)
[2021-06-14] MEDS: MELATONIN 10 MG TABLET PO (22:48)
[2021-06-14] MEDS: Mirtazapine 15 MG Tablet PO (22:49)
[2021-06-15] VITALS (12 sets, daily range): BP systolic 141–169; BP diastolic 54–66; PULSE 85–111; RESP 18–22; TEMP 36.5–37; O2SAT 92–97
[2021-06-15 06:26] LABS: Absolute Lymphocyte Count 1.91 X10^3/uL (0.83-4.51); Absolute Neutrophil Count 7.1 X10^3/uL (2.0-7.7); Basophil# 0.07 X10^3/uL; Basophil% 0.6 % (0-1); Eosinophil# 0.07 X10^3/uL; Eosinophils% 0.6 % (0-5); Hematocrit 36.9 % (40-54); Hemoglobin 10.8 g/dL (13.0-16.5); Lymphocyte # 1.91 X10^3/ul (0.83-4.51); Lymphocyte % 17.7 % (19-41); Mean Corp Hgb Conc 29.3 g/dL (32-36); Mean Corpuscular Hgb 27.6 pg (27.0-32.0); Mean Corpuscular Volume 94.4 fL (80-94); Mean Platelet Vol. 9.9 fl (6.2-12.0); Monocyte# 1.19 X10^3/uL; NRBC Flagged by Analyzer 0.4 % (0-5); Neutrophil % 65.8 % (47-70); Platelet Count 235 K/mm3 (150-450); RBC Distribution Width CV 16.6 % (11.6-14.6); RBC Distribution Width SD 56.2 fl (35.1-43.9); Red Blood Count 3.91 M/mm3 (4.6-6.2); White Blood Count 10.8 K/mm3 (4.4-11.0)
[2021-06-15 07:02] LABS: Anion Gap 10 (5-15); BUN 45 mg/dL (7-18); BUN/Creat Ratio 14.7 RATIO (10-20); Calcium,Total 9.5 mg/dL (8.5-10.1); Chloride 115 mmol/L (98-107); Creatinine, Serum 3.07 mg/dL (0.70-1.30); EST Glomerular Filtration Rate 21 mL/min (>60); Est Glom Filt Rate - Afr Amer 25 mL/min (>60); Estimated Creatinine Clearance 16.97 ml/min; Glucose 109 mg/dL (74-106); Phosphorus 4.5 mg/dL (2.5-4.9); Potassium 4.9 mmol/L (3.5-5.1); Sodium Level 144 mmol/L (136-145)
[2021-06-15] MEDS: amLODIPine 5 MG Tablet PO ×2 (08:00→11:56)
[2021-06-15] MEDS: Calcium Carbonate 500 MG Tablet PO (08:01)
[2021-06-15] MEDS: Gabapentin 300 MG Capsule PO ×2 (08:01→20:36)
[2021-06-15] MEDS: Metoprolol Tartrate 25 MG Tablet 12.5 MG PO (08:01)
[2021-06-15] MEDS: Ferrous Sulfate 325 MG Tablet PO (08:01)
--- NOTE | 2021-06-15 09:13 | PN.RENAL_ITS ---
Subjective Subjective Following for TIERA Sitting up in bed, eating breakfast. No complaints this morning, denies any nausea or vomiting Objective Data Objective Data Vital Signs: Vital Signs Temp Pulse Resp BP Pulse Ox 98.1 F 109 H 18 169/66 H 94 06/15/21 04:47 06/15/21 08:01 06/15/21 04:47 06/15/21 08:01 06/15/21 04:47 Oxygen Flow Rate (L/min) 2 Oxygen Delivery Method Nasal Cannula Weight: 72.484 kg Body Mass Index (BMI) 26.6 Intake & Output: Intake and Output for Last 24 Hours 06/13/21 06/14/21 06/15/21 23:59 23:59 23:59 Intake Total 1491.25 / 1491.25 150 / 150 Output Total 325 / 325 Balance 1166.25 / 1166.25 150 / 150 Lab / Micro Data Result Diagrams: 06/15/21 06:13 06/15/21 06:13 Labs: Laboratory Results - last 24 hr 06/11/21 13:15: Diff Path Review Reviewed 06/12/21 05:38: Diff Path Review Reviewed 06/12/21 07:15: Crossmatch See Detail 06/14/21 14:41: POC Glucose 110 H 06/14/21 19:00: Sodium 141, Potassium 5.6 H, Chloride 113 H, Carbon Dioxide 19.0 L, Anion Gap 9, BUN 60 H, Creatinine 5.23 H, Estim Creat Clear Calc 9.96, Est GFR (MDRD) Af Amer 14 L, Est GFR (MDRD) Non-Af 11 L, BUN/Creatinine Ratio 11.5, Glucose 114 H, Calcium 9.0 06/15/21 06:13: Sodium 144, Potassium 4.9, Chloride 115 H, Carbon Dioxide 19.0 L , Anion Gap 10, BUN 45 H, Creatinine 3.07 H, Estim Creat Clear Calc 16.97, Est GFR (MDRD) Af Amer 25 L, Est GFR (MDRD) Non-Af 21 L, BUN/Creatinine Ratio 14.7, Glucose 109 H, Calcium 9.5, Phosphorus 4.5, Albumin 2.0 L 06/15/21 06:13: WBC 10.8, RBC 3.91 L, Hgb 10.8 L, Hct 36.9 L, MCV 94.4 H, MCH 27.6, MCHC 29.3 L, RDW Std Deviation 56.2 H, RDW Coeff of Nery 16.6 H, Plt Count 235, MPV 9.9, Immature Gran % (Auto) 4.300 H, Neut % (Auto) 65.8, Lymph % (Auto) 17.7 L, Garrard % (Auto) 11.0 H, Eos % (Auto) 0.6, Baso % (Auto) 0.6, Absolute Neuts (auto) 7.1, Absolute Lymphs (auto) 1.91, Nucleated RBC % 0.4 Micro: Microbiology 06/14/21 07:40 Nasal Secretion SARS-CoV-2 Antigen (Rapid) - Final 06/12/21 15:15 Stool Stool Occult Blood (EDGARDO) - Final Occult Blood Positive Rhythm Strip Rhythm Strip: Sinus Rhythm Rate: 84 Ectopy: None Physical Exam Narrative General: Alert and oriented x3, no apparent distress. HEENT: Normocephalic, atraumatic. Mucous membrane dry. PERRLA, EOMI. Hearing is intact. Heart: Normal S1, S2. No rubs, murmurs or gallops. Lungs: Clear anteriorly Abdomen: Normal bowel sound, soft, nontender Extremities: ROBBI wraps to b/l lower legs, knees to feet. + edema of the lower extremities bilaterally. Assessment & Plan Assessment/Plan (1) Acute kidney injury: PLAN: -No documented baseline serum creatinine on record here at [facility] and patient's daughter stated serum creatinine was normal prior to the initiation of radiation therapy 2 weeks ago. - SCr 5.1mg/dL on admission -->peaked on 06/14 to 5.54mg/dL. Had stents placed 06/14 and improvement in renal function today, SCr 3.07mg/dL. No significant uremic symptoms, there is no acute indication for RN IV THERAPY. Hopefully will continue to see improvement in renal function. Good UOP -The cause of TIERA is most likely due to obstruction since the patient has bilateral hydronephrosis which is new. The patient's daughter also tells me that imaging study of the system was normal prior to radiation therapy as well. -Other causes of TIERA is also possible. The patient had been on relatively high dose of NSAIDs prior to admission. His oral intake had been poor. Therefore, hemodynamically mediated TIERA from volume depletion made worse by NSAIDs is also possible. Home med list includes lisinopril and lasix, both on hold now. -urinalysis and urine indices: negative protein and RBC, urine Na 37 -Unfortunately, because of pleural effusion and anasarca, we are limited in t erms of how much fluid we can give the patient safely. Albumin is 2.0. -I asked the patient to continue to push solute and fluid intake on his own for now. -Avoid further NSAIDs. -Bp/HR elevated, will increase metoprolol, continue on same dose norvasc -If renal function fails to improve, we will work-up his TIERA further. (2) Hyperkalemia: PLAN: -Hyperkalemia is likely due to TIERA and NSAID use. Unclear whether patient was on ROBBI inhibitor or ARB prior to admission -resolved, does not need to follow low K+ diet (3) Metabolic acidosis: PLAN: -Metabolic acidosis is also likely due to TIERA. -There is no diarrhea. There is no need for supplemental sodium bicarbonate at this point. -We will continue to monitor serum bicarbonate. (4) Anemia: PLAN: -The patient likely has anemia due to chronic disease and possibly from malignancy being the bone. -S/P PRBC. hgb 10.8 today. Stool OB+, on IV PPI. GI has been consulted and possibly planning upper and lower endoscopy. (5) Prostate cancer metastatic to bone: PLAN: -The patient had been getting radiation therapy as outpatient prior to admission. -The patient is followed by Dr. Mejia Singh as outpatient. - underwent cystoscopy, b/l stent placement and pyelogram 06/14.
[2021-06-15] MEDS: Piperacil/Tazobactam 3.375 GM/50 ML ML IV ×2 (10:33→22:18)
[2021-06-15] MEDS: Methadone 10 MG Tablet PO (10:41)
--- NOTE | 2021-06-15 10:41 | PCM.PN.HOSP ---
Documented by User: Precious Rosa NP, ACTIVITY THERAPY TEACHER-C 06/15/21 11:13 Subjective Subjective Patient seen and examined. Intermittently confused. Stating he is on lockdown because of terrorist. States he has been having diarrhea. Denies other symptoms or complaints. Objective Data Objective Data Vital Signs: Vital Signs Temp Pulse Resp BP Pulse Ox 98.1 F 109 H 18 169/66 H 94 06/15/21 04:47 06/15/21 08:01 06/15/21 04:47 06/15/21 08:01 06/15/21 04:47 Oxygen Flow Rate (L/min) 2 Oxygen Delivery Method Nasal Cannula Weight: 159 lb 12.798 oz Body Mass Index (BMI) 26.6 Intake & Output: Intake and Output for Last 24 Hours 06/13/21 06/14/21 06/15/21 23:59 23:59 23:59 Intake Total 1491.25 / 1491.25 239.75 / 239.75 Output Total 325 / 325 Balance 1166.25 / 1166.25 239.75 / 239.75 Lab / Micro Data Result Diagrams: 06/15/21 06:13 06/15/21 06:13 Labs: Laboratory Results - last 24 hr 06/11/21 13:15: Diff Path Review Reviewed 06/12/21 05:38: Diff Path Review Reviewed 06/12/21 07:15: Crossmatch See Detail 06/14/21 14:41: POC Glucose 110 H 06/14/21 19:00: Sodium 141, Potassium 5.6 H, Chloride 113 H, Carbon Dioxide 19.0 L, Anion Gap 9, BUN 60 H, Creatinine 5.23 H, Estim Creat Clear Calc 9.96, Est GFR (MDRD) Af Amer 14 L, Est GFR (MDRD) Non-Af 11 L, BUN/Creatinine Ratio 11.5, Glucose 114 H, Calcium 9.0 06/15/21 06:13: Sodium 144, Potassium 4.9, Chloride 115 H, Carbon Dioxide 19.0 L, Anion Gap 10, BUN 45 H, Creatinine 3.07 H, Estim Creat Clear Calc 16.97, Est GFR (MDRD) Af Amer 25 L, Est GFR (MDRD) Non-Af 21 L, BUN/Creatinine Ratio 14.7, Glucose 109 H, Calcium 9.5, Phosphorus 4.5, Albumin 2.0 L 06/15/21 06:13: WBC 10.8, RBC 3.91 L, Hgb 10.8 L, Hct 36.9 L, MCV 94.4 H, MCH 27.6, MCHC 29.3 L, RDW Std Deviation 56.2 H, RDW Coeff of Nery 16.6 H, Plt Count 235, MPV 9.9, Immature Gran % (Auto) 4.300 H, Neut % (Auto) 65.8, Lymph % (Auto) 17.7 L, Pacific % (Auto) 11.0 H, Eos % (Auto) 0.6, Baso % (Auto) 0.6, Absolute Neuts (auto) 7.1, Absolute Lymphs (auto) 1.91, Nucleated RBC % 0.4 Micro: Microbiology 06/14/21 07:40 Nasal Secretion SARS-CoV-2 Antigen (Rapid) - Final 06/12/21 15:15 Stool Stool Occult Blood (EDGARDO) - Final Occult Blood Positive Rhythm Strip Rhythm Strip: Sinus Rhythm Rate: 84 Ectopy: None Physical Exam Const alert and no apparent distress Orientation / Consciousness: awake, oriented to person and oriented to place HEENT normocephalic Mouth: dry mucous membranes Eyes PERRL, EOMs intact bilaterally and conjunctivae normal Neck no lymphadenopathy Resp clear to auscultation bilaterally Auscultation: diminished lung sounds Cardio regular rate, regular rhythm and no murmurs Peripheral Pulses: pulses 2+ throughout GI normal to inspection, nondistended, normoactive bowel sounds, non-tender and non-distended Extremity normal to inspection Skin no rashes or lesions noted Lesions: no lesions Rashes: no rashes Trauma: no lacerations or abrasions Neuro CN's II-XII intact bilaterally, no focal motor deficits, no sensory deficits noted and deep tendon reflexes 2+ bilaterally Psych mental status grossly normal and affect normal Assessment & Plan Assessment/Plan (1) Anemia: (2) Acute kidney injury: PLAN: 1. Acute kidney injury, obstructive uropathy with bilateral hydronephrosis-nephrology and urology following. Underwent cystoscopy with bilateral stents placement 06/14/2021. Kidney function significantly improved following stent placement. Trend BMP. 2. Acute blood loss anemia on chronic anemia-S/P 2 unit PRBC. Stool positive for occult blood. IV PPI. Patient has been on high dose NSAIDs prior to admission. GI consulted. Plan for upper and lower endoscopy following urologic procedure. Trend CBC. 3. Metastatic prostate cancer, bone mets-on hormonal and radiation therapy. Continue outpatient follow-up with radiation/oncologist. 4. Hyperkalemia-resolved. 5. Small bilateral pleural effusions/anasarca-likely related to malignancy. 6. Diverticulitis-noted on CT. On IV Zosyn due to development of fever. Fever now improved. DVT prophylaxis-Lovenox subcu This patient was seen by ARUN Sy under the supervision of Dr. Garnett. Time spent examining patient, reviewing data and subsequent management of care: 11 Minutes Documented by User: Dr. James Garnett, 06/15/21 11:56 Subjective Subjective Undecided about GI evaluation, defers to his , but still doesn't want Hospice. Objective Data Lab / Micro Data Result Diagrams: 06/15/21 06:13 06/15/21 06:13 Physical Exam Const alert and no apparent distress Resp normal respiratory effort, no retractions, no use of accessory muscles and clear to auscultation bilaterally Cardio regular rate, regular rhythm, S1 normal heart sound and S2 normal heart sound GI normal to inspection, nondistended, normoactive bowel sounds, soft to palpation, non-tender and non-distended Extremity Extremity Narrative: edema. bilateral leg wraps. Assessment & Plan Assessment/Plan (1) Acute kidney injury: (2) Hydronephrosis: PLAN: Patient seen and examined independently. Data and vitals reviewed. I agree with the above note by the nurse practitioner. 1. Acute kidney injury Improved Ongoing and slightly worse Suspect due to hydronephrosis Nephrology and urology following No indication for renal replacement therapy at this time 2. Hydronephrosis, bilateral s/p bilateral stents. 3. Metastatic prostate cancer Complicates matter 4. Pleural effusions and anasarca Likely multifactorial Limits IV fluids patient can receive 5. VTE prophylaxis with enoxaparin Greater than 15 minutes of which greater than for percent of time was constipation at bedside. Also clarified with the patient that he himself is not interested in hospice. I do not feel the patient is hospice appropriate but certainly palliative care would probably be a more appropriate option for him at this time. Charges/Coding Visit Charges Inpatient E&M: 10791 Subs Hosp L2
--- NOTE | 2021-06-15 15:41 | CASEMGMT ---
Pt qualifies for palliative screen and [facility] EMPLOYMENT PROGRAMS ANALYST is agreeable for referral to be sent. Per EMPLOYMENT PROGRAMS ANALYST, pt is likely hospice appropriate but pt is not agreeable at this time. Order placed and referral e-mailed. Rolo HORTON CM
--- NOTE | 2021-06-15 16:49 | PCM.CONS.P ---
Assessment & Plan Assessment/Plan (1) AMS (altered mental status): QUALIFIERS: Altered mental status type: unspecified Qualified Code(s): R41.82 - Altered mental status, unspecified (2) Dyspnea: QUALIFIERS: Dyspnea type: shortness of breath Qualified Code(s): R06.02 - Shortness of breath (3) Weakness: (4) Prostate cancer metastatic to bone: (5) Acute kidney injury: (6) Hydronephrosis: QUALIFIERS: Hydronephrosis type: unspecified Qualified Code(s): N13.30 - Unspecified hydronephrosis (7) Acute respiratory failure with hypoxia: (8) Acute blood loss anemia: PLAN: 81-year-old male with history of prostate cancer metastatic to bone, seen today for palliative care consultation due to his cancer diagnosis and for supportive management when he is discharged home. Patient is current with [facility] palliative, however daughter would like him to transfer to [facility] palliative/local palliative program. 1. Dyspnea: Daughter in the room, reports he has had a significant decline. He is on 2 L and saturating 85%. Breathing is labored. Nurse taking vitals, hospitalist notified personally via [employer]. Would increase oxygen to keep saturations greater than 90%. He does have some lower extremity edema. Concern for worsening pleural effusions. Would recommend chest x-ray, discussed with hospitalist. 2. AMS: Likely multifactorial, however patient on methadone 10 mg twice daily in the setting of acute renal failure. Would hold methadone and utilize short acting opioid while in the hospital. He does have significant bone pain from metastases. 3. Weakness: He has had an abrupt decline in mobility. He is barely able to transfer, required max x2 assist. He is confused. He will likely require fpc when discharged unless has 24/7 care or he has significant improvement in overall symptoms. 4. Prostate cancer metastatic to bone/anemia: Patient had some palliative radiation to the bone, left thigh. He has significant anemia and required 3 units of PRBCs. Concern for bone marrow failure worsening. He is also losing blood with GI source? Hemoccult stool was positive. Dr. Mccormick consulted, here to see the patient this evening. Plan of care unknown at this time 5. Hydronephrosis/TIERA/acute hypoxemic respiratory failure/metabolic acidosis: Complicates overall care, management, recovery, and prognosis. We did discuss hospice versus palliative services. Again, patient is current with [facility] palliative and is on methadone for bone pain and gabapentin 300 mg twice daily. He also has [place] 5/325 mg 1 every 4 hours as needed for breakthrough pain and Tylenol 650 mg every 6 hours as needed. Patient is very resistant to hospice conversation, however daughter at bedside is encouraging him to at least listen to description of each program. He was willing to have a conversation, however he declined services at this time. He is willing to stay on palliative. If patient would change his mind, he would be hospice appropriate if not IPU appropriate for symptom management of pain and shortness of breath. Thank you for the opportunity to participate in this patient's care, please do not hesitate to contact [facility] with any further questions or concerns, direct line is [phone]. Contact information left with the patient's daughter. Discussed my concerns with hospitalist, Precious Rosa, MILITARY SOURCE OPERATIONS SPECIALIST and charge nurse on PCU. Greater than 50% of F2F visit dedicated to education and counseling of palliative care services, medications, comorbid conditions and potential assistance with management, and plan of care moving forward. Start time: 1648 End time: [ ] HPI Consult Data Date of Consult: 06/15/21 HPI Narrative HPI Narrative: ANUEL PIZARRO, is a 81 M who presented to [facility] 06/11/2021 with increased lower extremity edema and periorbital edema, as well as scrotal edema. He has a history of prostate cancer with bony metastases and underwent chemotherapy approximately 8 months ago, however did not complete treatment due to intolerance. He is currently undergoing radiation for bony metastases and follows with Dr. Singh for oncology. He saw his PCP who started Lasix, with minimal improvement. Blood work was remarkable for a potassium of 6.3, bicarb 19, BUN of 56 and creatinine 5.17. Baseline creatinine known to be around 1. Albumin 2.3. H&H 7.8/26.4. Chest x-ray showed hyperinflation, calcified pleural plaques left hemithorax, increased markings worse on left lung base suggestive of atelectasis and/or scarring. CT abdomen/pelvis without contrast showed small bilateral pleural effusions, bilateral hydronephrosis, suspect diverticulitis, questionable ileus, lymphadenopathy, hiatal hernia, large scrotum with questionable hydroceles, anasarca. He was given IV insulin, aerosols, dextrose, admitted to the hospital for further evaluation and management. Patient was seen by urology for bilateral stent placement. Patient has been taking high doses of NSAIDs for pain management. It was advised he currently hold NSAIDs due to the significant TIERA. GI was also consulted and is planning a possible upper and lower endoscopy. He did have acute blood loss anemia and received 2 units of packed RBCs. Hemoccult stool positive. Receiving IV PPI. Patient lives with his in a single-story home, typically independent with ADLs. He drives self. No DME in the home. He is a former smoker quit 25 years ago. Occasional EtOH use. He follows with Dr. Jang for cardiology and uses [facility] in [place] for pharmacy. He plans to return home upon discharge with his . His daughter is a nurse and used to work for [employer]. She is supportive in his care. Patient reports shortness of breath, he transferred from the bed to the chair which appeared to be a difficult task due to his breathing and cognition. He is very weak. Denies any chest pain. He is on 2 L of oxygen and daughter checked his pulse ox which was 85%. Nurses going into repeat vital signs. He has some upper extremity twitching since stents were placed yesterday for hydronephrosis. He is obviously confused but able to hold on a conversation. We did have rivera discussion about his overall health. His daughter and are wanting him to enroll in hospice services, however patient has been resistant. He is currently enrolled in palliative care through [facility]. Daughter would like to transfer his care to more local palliative program. I did give her my contact information and will follow him while he is in the hospital. Dr. Mccormick is here to talk with the patient and his daughter. [facility] Medical History Asthma Bone cancer Chronic pain Diverticulitis Former smoker Myocardial infarct Home Medications Metamucil 1 tbsp PO/SL DAILY PRN 06/12/21 [History Last Taken Unknown] PreserVision AREDS 1 tab PO/SL BID 06/12/21 [History Last Taken Unknown] amlodipine 5 mg PO DAILY 06/12/21 [History Last Taken Unknown] ascorbate calcium (vitamin C) [Tarah-C] 1,000 mg PO DAILY 06/12/21 [History Last Taken Unknown] aspirin [Adult Low Dose Aspirin] 81 mg PO DAILY 06/12/21 [History Last Taken Unknown] calcium citrate 950 mg PO DAILY 06/12/21 [History Last Taken Unknown] carboxymethylcellulose-glycern [Refresh Relieva] 1 drp RIGHT EYE 4X/DAY 06/12/21 [History Last Taken Unknown] cholecalciferol (vitamin D3) 250 mcg PO DAILY 06/12/21 [History Last Taken Unknown] clotrimazole-betamethasone 1 applic TOPICAL BID 06/12/21 [History Last Taken Unknown] coenzyme Q10 [Co Q-10] 300 mg PO BID 06/12/21 [History Last Taken Unknown] cyanocobalamin (vitamin B-12) [Vitamin B-12] 1,000 mcg PO DAILY 06/12/21 [History Last Taken Unknown] diphenoxylate-atropine 1 - 2 tab PO Q6H PRN 06/12/21 [History Last Taken Unknown] famotidine 20 mg PO 4X/DAY 06/12/21 [History Last Taken Unknown] ferrous sulfate 325 mg PO DAILY 06/12/21 [History Last Taken Unknown] furosemide [Lasix] 20 mg PO DAILY 06/12/21 [History Last Taken Unknown] gabapentin 300 mg PO BID 06/12/21 [History Last Taken Unknown] nhgowvpzjvx-nsehwumsg-tqp C-Mn [Glucosamine 1500 Complex] 3 cap PO DAILY 06/12/21 [History Last Taken Unknown] hydrocodone-acetaminophen 1 tab PO Q4H PRN 06/12/21 [History Last Taken Unknown] lisinopril 60 mg PO DAILY 06/12/21 [History Last Taken Unknown] loperamide 2 mg PO PRN 06/12/21 [History Last Taken Unknown] loratadine [Claritin] 10 mg PO DAILY 06/12/21 [History Last Taken Unknown] magnesium oxide [MagOx] 400 mg PO DAILY 06/12/21 [History Last Taken Unknown] melatonin 10 mg PO QHS 06/12/21 [History Last Taken Unknown] methadone 10 mg PO BID 06/12/21 [History Last Taken Unknown] methylsulfonylmethane [MSM] 1,000 mg PO DAILY 06/12/21 [History Last Taken Unknown] metoprolol tartrate 12.5 mg PO BID 06/12/21 [History Last Taken Unknown] mirabegron [Myrbetriq] 50 mg PO DAILY 06/12/21 [History Last Taken Unknown] mirtazapine 15 mg PO QHS 06/12/21 [History Last Taken Unknown] yiemmqlnyfjx-uicbdeeh-jzcqpp [Centrum Silver] 1 tab PO DAILY 06/12/21 [History Last Taken Unknown] naloxone 4 mg INTRANASAL Q3M PRN 06/12/21 [History Last Taken Unknown] promethazine 25 mg PO Q6H PRN 06/12/21 [History Last Taken Unknown] pseudoephedrine HCl [Sudafed] 30 mg PO DAILY 06/12/21 [History Last Taken Unknown] resveratrol 250 mg PO DAILY 06/12/21 [History Last Taken Unknown] ribose kcal PO DAILY 06/12/21 [History Last Taken Unknown] rosuvastatin 20 mg PO DAILY 06/12/21 [History Last Taken Unknown] saw palmetto 450 mg PO DAILY 06/12/21 [History Last Taken Unknown] sennosides [senna] 8.6 mg PO QHS 06/12/21 [History Last Taken Unknown] vitamin B complex [B Complex] 1 tab PO DAILY 06/12/21 [History Last Taken Unknown] Allergy/AdvReac Type Severity Reaction Status Date / Time No Known Allergies Allergy Verified 06/11/21 12:22 Surgical History History of coronary artery stent placement Social History Smoking Status: Former smoker ROS ROS Narrative Review of systems otherwise negative from a constitutional, HEENT, respiratory, cardiovascular, GI, genitourinary, musculoskeletal, skin, neurologic, psychiatric and hematologic system unless stated above. Physical Exam Const alert General Appearance: ill appearing and frail Orientation / Consciousness: confused Exam Limitations: altered mental status Nutritional Appearance: cachectic HEENT normocephalic and head/scalp atraumatic Neck supple General: trachea midline Resp Resp Narrative: Very poor air movement, no significant rales, rhonchi, or wheezing Effort and Inspection: symmetric chest movement and labored Auscultation: diminished lung sounds Cardio regular rhythm, S1 normal heart sound, S2 normal heart sound and no murmurs Rate: tachycardic GI Auscultation: normoactive bowel sounds Palpation: soft and hernia; Negative for tender Extremity General Extremity: edema bilateral lower extremity; Negative for clubbing or cyanosis Skin General Skin Exam: hypertrophy Rashes: no rashes Neuro moves all extremities Neuro Narrative: Upper extremity muscle twitching Sensorium / Orientation: confused Speech: speech normal Psych Appearance: disheveled Activity / Motor Behavior: appropriate eye contact Memory / Cognition: cognition impaired
--- NOTE | 2021-06-15 18:15 | RAD_ITS ---
STUDY: X-RAY CHEST REASON FOR EXAM: Male, 81 years old. CHEST PAIN hypoxia TECHNIQUE: XR Chest 1 View COMPARISON: 06.11.21 FINDINGS: There are bilateral pleural effusions. There are bilateral infiltrates. Normal size heart. Normal mediastinum and jj. Normal visualized pulmonary arteries. There is atherosclerotic calcification of the aortic arch with tortuosity. There are diffuse degenerative changes of the visualized thoracic spine. There is degenerative osteoarthritis of the bilateral shoulders. There is no demonstrated abnormality of the visualized soft tissue structures of the upper abdomen. RAD/Chest 1 View (Portable) IMPRESSION: There are bilateral pleural effusions. There are bilateral infiltrates. Electronically Signed: Trenton Smith MD at 19:26 EDT ,
[2021-06-15 19:07] LABS: Hematocrit 30.1 % (40-54); Hemoglobin 9.3 g/dL (13.0-16.5)
[2021-06-15 19:21] LABS: Anion Gap 6 (5-15); BUN 35 mg/dL (7-18); BUN/Creat Ratio 20.1 RATIO (10-20); Calcium,Total 8.4 mg/dL (8.5-10.1); Chloride 109 mmol/L (98-107); Creatinine, Serum 1.74 mg/dL (0.70-1.30); EST Glomerular Filtration Rate 40 mL/min (>60); Est Glom Filt Rate - Afr Amer 49 mL/min (>60); Estimated Creatinine Clearance 29.94 ml/min; Glucose 169 mg/dL (74-106); Potassium 4.2 mmol/L (3.5-5.1); Sodium Level 138 mmol/L (136-145)
[2021-06-15] MEDS: Mirtazapine 15 MG Tablet PO (20:29)
[2021-06-15] MEDS: Metoprolol Tartrate 25 MG Tablet PO (20:36)
[2021-06-15] MEDS: MELATONIN 10 MG TABLET PO (20:38)
[2021-06-15] MEDS: Atorvastatin Calcium 40 MG Tablet PO (20:38)
[2021-06-16] VITALS (12 sets, daily range): BP systolic 146–166; BP diastolic 53–63; PULSE 88–99; RESP 16–18; TEMP 36.8–37; O2SAT 85–98
[2021-06-16 05:32] LABS: Absolute Lymphocyte Count 1.04 X10^3/uL (0.83-4.51); Absolute Neutrophil Count 5.1 X10^3/uL (2.0-7.7); Basophil# 0.02 X10^3/uL; Basophil% 0.3 % (0-1); Eosinophil# 0.08 X10^3/uL; Eosinophils% 1.1 % (0-5); Hematocrit 29.3 % (40-54); Hemoglobin 9.4 g/dL (13.0-16.5); Lymphocyte # 1.04 X10^3/ul (0.83-4.51); Mean Corp Hgb Conc 32.1 g/dL (32-36); Mean Corpuscular Hgb 28.5 pg (27.0-32.0); Mean Corpuscular Volume 88.8 fL (80-94); Mean Platelet Vol. 9.7 fl (6.2-12.0); Monocyte# 0.87 X10^3/uL; Monocyte% 11.7 % (0-10); NRBC Flagged by Analyzer 0.5 % (0-5); Neutrophil # 5.08 X10^3/uL (2.7-7.7); Neutrophil % 68.5 % (47-70); Platelet Count 177 K/mm3 (150-450); RBC Distribution Width CV 16.1 % (11.6-14.6); RBC Distribution Width SD 52.5 fl (35.1-43.9); White Blood Count 7.4 K/mm3 (4.4-11.0)
[2021-06-16 05:56] LABS: Anion Gap 6 (5-15); BUN 37 mg/dL (7-18); BUN/Creat Ratio 17.4 RATIO (10-20); Calcium,Total 8.3 mg/dL (8.5-10.1); Chloride 110 mmol/L (98-107); Creatinine, Serum 2.13 mg/dL (0.70-1.30); EST Glomerular Filtration Rate 32 mL/min (>60); Est Glom Filt Rate - Afr Amer 39 mL/min (>60); Estimated Creatinine Clearance 24.46 ml/min; Glucose 130 mg/dL (74-106); Potassium 4.1 mmol/L (3.5-5.1); Sodium Level 140 mmol/L (136-145)
[2021-06-16] MEDS: Metoprolol Tartrate 25 MG Tablet PO ×2 (08:25→20:54)
[2021-06-16] MEDS: Gabapentin 300 MG Capsule PO ×2 (08:25→20:54)
[2021-06-16] MEDS: amLODIPine 10 MG Tablet PO (08:25)
[2021-06-16] MEDS: Calcium Carbonate 500 MG Tablet PO (08:25)
[2021-06-16] MEDS: Ferrous Sulfate 325 MG Tablet PO (08:25)
--- NOTE | 2021-06-16 08:30 | EKG12_ITS ---
Test Reason : CP Blood Pressure : / mmHG Vent. Rate : 095 BPM Atrial Rate : 095 BPM P-R Int : 150 ms QRS Dur : 090 ms QT Int : 338 ms P-R-T Axes : 005 000 065 degrees QTc Int : 424 ms Normal sinus rhythm Normal ECG When compared with ECG of 14-JUN-2021 05:02, ST elevation now present in Inferior leads Confirmed by MIKE DELA CRUZ, AKIKO ([id number]), medical editor SYLVESTER ROSENBERG ([id number]) on 06/17/2021 1:40:30 PM Referred By: DEVON Confirmed By:BRAD MCKEON MD
[2021-06-16] MEDS: Piperacil/Tazobactam 3.375 GM/50 ML ML IV ×2 (10:32→22:29)
--- NOTE | 2021-06-16 10:36 | CASEMGMT ---
SW was informed patient's said she is unable to care for patient at home. SW went to patient's room. Patient, his , and daughter were present. SW introduced self and role at [facility]. Patient was dozing off during discussion. SW asked about [facility] for rehab. patient's daughter spoke up quietly and said, We might go with Hospice. SW asked if it would be home on Hospice or usp. They did not know. SW made them aware that if patient went to a [facility] on Hospice he would have to pay room and board. Patient's daughter said she was aware. SW let them know SW will be available once they have made some decisions. Marbella Whiting FINISHER TAILOR APPRENTICE LILIANE
--- NOTE | 2021-06-16 11:09 | PCM.PN.HOSP ---
Documented by User: Precious Rosa SEVERITY OF ILLNESS COORDINATOR, SEVERITY OF ILLNESS COORDINATOR-C 06/16/21 11:29 Subjective Subjective Patient seen and examined. Patient alert and oriented X3. and daughter at bedside who are strongly requesting hospice services. Patient states he is not open to hospice at this time however amenable to consult for discussion. Objective Data Objective Data Vital Signs: Vital Signs Temp Pulse Resp BP Pulse Ox 98.6 F 97 16 166/63 H 95 06/16/21 08:18 06/16/21 08:25 06/16/21 08:18 06/16/21 08:25 06/16/21 08:18 Oxygen Flow Rate (L/min) 3 Oxygen Delivery Method Nasal Cannula Weight: 159 lb 12.798 oz Body Mass Index (BMI) 26.6 Intake & Output: Intake and Output for Last 24 Hours 06/14/21 06/15/21 06/16/21 23:59 23:59 23:59 Intake Total 1491.25 / 1491.25 1709.75 / 1909.75 360 / 360 Output Total 325 / 325 800 / 1200 1100 / 1100 Balance 1166.25 / 1166.25 909.75 / 709.75 -740 / -740 Lab / Micro Data Result Diagrams: 06/16/21 05:15 06/16/21 05:15 Labs: Laboratory Results - last 24 hr 06/15/21 18:50: Hgb 9.3 L, Hct 30.1 L 06/15/21 18:50: Sodium 138, Potassium 4.2, Chloride 109 H, Carbon Dioxide 23.0, Anion Gap 6, BUN 35 H, Creatinine 1.74 H, Estim Creat Clear Calc 29.94, Est GFR (MDRD) Af Amer 49 L, Est GFR (MDRD) Non-Af 40 L, BUN/Creatinine Ratio 20.1 H, Glucose 169 H, Calcium 8.4 L 06/16/21 05:15: Sodium 140, Potassium 4.1, Chloride 110 H, Carbon Dioxide 24.0, Anion Gap 6, BUN 37 H, Creatinine 2.13 H, Estim Creat Clear Calc 24.46, Est GFR (MDRD) Af Amer 39 L, Est GFR (MDRD) Non-Af 32 L, BUN/Creatinine Ratio 17.4, Glucose 130 H, Calcium 8.3 L 06/16/21 05:15: WBC 7.4, RBC 3.30 L, Hgb 9.4 L, Hct 29.3 L, MCV 88.8 D, MCH 28.5, MCHC 32.1 D, RDW Std Deviation 52.5 H, RDW Coeff of Nery 16.1 H, Plt Count 177, MPV 9.7, Immature Gran % (Auto) 4.400 H, Neut % (Auto) 68.5, Lymph % (Auto) 14.0 L, [place] % (Auto) 11.7 H, Eos % (Auto) 1.1, Baso % (Auto) 0.3, Absolute Neuts (auto) 5.1, Absolute Lymphs (auto) 1.04, Nucleated RBC % 0.5 Micro: Microbiology 06/14/21 07:40 Nasal Secretion SARS-CoV-2 Antigen (Rapid) - Final 06/12/21 15:15 Stool Stool Occult Blood (EDGARDO) - Final Occult Blood Positive Radiography Diagnostic Testing: Radiology Impression Chest X-Ray 06/15/21 18:15 IMPRESSION: There are bilateral pleural effusions. There are bilateral infiltrates. Electronically Signed: Trenton Smith MD at 19:26 EDT Reading Location ID and State: [facility] - [place] / [place] , Service support , Rhythm Strip Rhythm Strip: Sinus Rhythm Rate: 84 Ectopy: None Physical Exam Const alert, oriented x3 and no apparent distress Orientation / Consciousness: awake, oriented to person, oriented to place and oriented to time Nutritional Appearance: cachectic HEENT normocephalic Mouth: dry mucous membranes Eyes PERRL, EOMs intact bilaterally and conjunctivae normal Neck no lymphadenopathy Resp normal respiratory effort and clear to auscultation bilaterally Cardio regular rate, regular rhythm and no murmurs Peripheral Pulses: pulses 2+ throughout GI normal to inspection, nondistended, normoactive bowel sounds, non-tender and non-distended Extremity normal to inspection Skin no rashes or lesions noted Lesions: no lesions Rashes: no rashes Trauma: no lacerations or abrasions Neuro CN's II-XII intact bilaterally, no focal motor deficits, no sensory deficits noted and deep tendon reflexes 2+ bilaterally Psych mental status grossly normal and affect normal Assessment & Plan Assessment/Plan (1) Acute kidney failure: PLAN: 1. Acute kidney injury, obstructive uropathy with bilateral hydronephrosis-nephrology and urology following. Underwent cystoscopy with bilateral stents placement 06/14/2021. Kidney function significantly improved following stent placement. Trend BMP. 2. Acute blood loss anemia on chronic anemia-S/P 2 unit PRBC. Stool positive for occult blood. IV PPI. Patient has been on high dose NSAIDs prior to admission. GI consulted. GI discussed scope however patient and family still deciding. Trend CBC. 3. Metastatic prostate cancer, bone mets-on hormonal and radiation therapy. Continue outpatient follow-up with radiation/oncologist. 4. Hyperkalemia-resolved. 5. Small bilateral pleural effusions/anasarca-likely related to malignancy. 6. Diverticulitis-noted on CT. On IV Zosyn due to development of fever. Fever now improved. DVT prophylaxis-Lovenox subcu This patient was seen by ARUN Sy under the supervision of Dr. Garnett. Discharge planning: Likely will need SNF. Patient and family discussing hospice as well. Time spent examining patient, reviewing data and subsequent management of care: 14 Minutes Documented by User: Dr. James Garnett DO 06/16/21 13:09 Subjective Subjective Denies any pain. Still undecided about ultimately what wants to do regards to gastroenterology evaluation and deferring to his . Does not for me that he states that he feels that his would probably prefer him to be though he denies that there attempt to take his life from her. He does state that would be easier for her if he were . He again is still not ready for hospice. Objective Data Lab / Micro Data Result Diagrams: 06/16/21 05:15 06/16/21 05:15 Physical Exam Const alert and no apparent distress Resp normal respiratory effort, no retractions, no use of accessory muscles and clear to auscultation bilaterally Cardio regular rate, regular rhythm, S1 normal heart sound and S2 normal heart sound GI normal to inspection, nondistended, normoactive bowel sounds, soft to palpation, non-tender and non-distended Extremity Extremity Narrative: +2 lower extremity edema. Neuro Sensorium / Orientation: awake and alert Assessment & Plan Assessment/Plan (1) Acute blood loss anemia: (2) AMS (altered mental status): QUALIFIERS: Altered mental status type: unspecified Qualified Code(s): R41.82 - Altered mental status, unspecified PLAN: Patient seen and examined independently. Data and vitals reviewed. I agree with the above note by the nurse practitioner. 1. Acute kidney injury Improved Ongoing and slightly worse Suspect due to hydronephrosis Nephrology and urology following No indication for renal replacement therapy at this time 2. Hydronephrosis, bilateral s/p bilateral stents. 3. Metastatic prostate cancer Complicates matter 4. Pleural effusions and anasarca Likely multifactorial Limits IV fluids patient can receive 5. Anemia Heme positive stools Unclear about desire for any additional evaluation according the family and patient at this time. VTE prophylaxis with SCDs Greater than 25 minutes of which greater than 50 percent of time was at bedside. Discussed with the patient about the disconnect between he and his that there are appears to be different goals of care for him. Ultimately the decision is his. I encouraged him to speak with his about getting on the same page and offered the medical staff to help guide to mediate any, disconnected they have. I also clarified patient's parents that his would prefer him being make sure that he does not feel threatened for his life in any way which he stated he did not. Also clarified with the patient that he himself is not interested in hospice. I do not feel the patient is hospice appropriate but certainly palliative care would probably be a more appropriate option for him at this time. Charges/Coding Visit Charges Inpatient E&M: 99934 Subs Hosp L3
--- NOTE | 2021-06-16 11:30 | CASEMGMT ---
Pt's /daughter very insistent on Hospice for pt with all staff and state that they contacted Hospice on their own and Hospice will be coming to meet with pt/family at 1100 today. Jeimy from hospice did show up at 1110 and updated on all and into room to speak with pt. Per STOCKROOM ATTENDANT, RN, and hospice, pt is A/O4 and able to make decisions for self. Per Jeimy, pt does decline Hospice at this time. Palliative did meet with pt yesterday and per notes, pt was already active with [facility] palliative but family may be willing to switch to [facility]. CM to follow. Rolo HORTON CM
--- NOTE | 2021-06-16 11:48 | PCM.PN.REN ---
Subjective Subjective Following for TIERA Patient had been confused. and daughter at bedside. Having diarrhea and poor appetite this am. Objective Data Objective Data Vital Signs: Vital Signs Temp Pulse Resp BP Pulse Ox 98.6 F 97 16 166/63 H 95 06/16/21 08:18 06/16/21 08:25 06/16/21 08:18 06/16/21 08:25 06/16/21 08:18 Oxygen Flow Rate (L/min) 3 Oxygen Delivery Method Nasal Cannula Weight: 72.484 kg Body Mass Index (BMI) 26.6 Intake & Output: Intake and Output for Last 24 Hours 06/14/21 06/15/21 06/16/21 23:59 23:59 23:59 Intake Total 1491.25 / 1491.25 1709.75 / 1909.75 360 / 360 Output Total 325 / 325 800 / 1200 1100 / 1100 Balance 1166.25 / 1166.25 909.75 / 709.75 -740 / -740 Lab / Micro Data Result Diagrams: 06/16/21 05:15 06/16/21 05:15 Labs: Laboratory Results - last 24 hr 06/15/21 18:50: Hgb 9.3 L, Hct 30.1 L 06/15/21 18:50: Sodium 138, Potassium 4.2, Chloride 109 H, Carbon Dioxide 23.0, Anion Gap 6, BUN 35 H, Creatinine 1.74 H, Estim Creat Clear Calc 29.94, Est GFR (MDRD) Af Amer 49 L, Est GFR (MDRD) Non-Af 40 L, BUN/Creatinine Ratio 20.1 H, Glucose 169 H, Calcium 8.4 L 06/16/21 05:15: Sodium 140, Potassium 4.1, Chloride 110 H, Carbon Dioxide 24.0, Anion Gap 6, BUN 37 H, Creatinine 2.13 H, Estim Creat Clear Calc 24.46, Est GFR (MDRD) Af Amer 39 L, Est GFR (MDRD) Non-Af 32 L, BUN/Creatinine Ratio 17.4, Glucose 130 H, Calcium 8.3 L 06/16/21 05:15: WBC 7.4, RBC 3.30 L, Hgb 9.4 L, Hct 29.3 L, MCV 88.8 D, MCH 28.5, MCHC 32.1 D, RDW Std Deviation 52.5 H, RDW Coeff of Nery 16.1 H, Plt Count 177, MPV 9.7, Immature Gran % (Auto) 4.400 H, Neut % (Auto) 68.5, Lymph % (Auto) 14.0 L, [place] % (Auto) 11.7 H, Eos % (Auto) 1.1, Baso % (Auto) 0.3, Absolute Neuts (auto) 5.1, Absolute Lymphs (auto) 1.04, Nucleated RBC % 0.5 Micro: Microbiology 06/14/21 07:40 Nasal Secretion SARS-CoV-2 Antigen (Rapid) - Final 06/12/21 15:15 Stool Stool Occult Blood (EDGARDO) - Final Occult Blood Positive Radiography Diagnostic Testing: Radiology Impression Chest X-Ray 06/15/21 18:15 IMPRESSION: There are bilateral pleural effusions. There are bilateral infiltrates. Electronically Signed: Trenton Smith MD at 19:26 EDT Reading Location ID and State: [facility] / [place] , Service support , Rhythm Strip Rhythm Strip: Sinus Rhythm Rate: 84 Ectopy: None Physical Exam Narrative General: Alert and oriented x3, no apparent distress. HEENT: Normocephalic, atraumatic. Mucous membrane dry. PERRLA, EOMI. Hearing is intact. Heart: Normal S1, S2. No rubs, murmurs or gallops. Lungs: Clear anteriorly Abdomen: Normal bowel sound, soft, nontender Extremities: ROBBI wraps to b/l lower legs, knees to feet. + edema of the lower extremities bilaterally. Assessment & Plan Assessment/Plan (1) Acute kidney injury: PLAN: -No documented baseline serum creatinine on record here at [facility] and patient's daughter stated serum creatinine was normal prior to the initiation of radiation therapy 2 weeks ago. - SCr 5.1mg/dL on admission -->peaked on 06/14 to 5.54mg/dL. Had stents placed 06/14 and improvement in renal function, currently SCr 2.13mg/dL. No significant uremic symptoms, there is no acute indication for MACHINE REBUILDER. Hopefully will continue to see improvement in renal function. Good UOP -The cause of TIERA is most likely due to obstruction since the patient has bilateral hydronephrosis which is new. The patient's daughter also tells me that imaging study of the system was normal prior to radiation therapy as well. -Other causes of TIERA is also possible. The patient had been on relatively high dose of NSAIDs prior to admission. His oral intake had been poor. Therefore, hemodynamically mediated TIERA from volume depletion made worse by NSAIDs is also possible. Home med list includes lisinopril and lasix, both on hold now. -urinalysis and urine indices: negative protein and RBC, urine Na 37 -Unfortunately, because of pleural effusion and anasarca, we are limited in terms of how much fluid we can give the patient safely. Albumin is 2.0. -I asked the patient to continue to push solute and fluid intake on his own for now. Also continue protein supplement. However, patient is now having diarrhea. -Bp/HR elevated, increased metoprolol and norvasc - reviewed with and daughter risk of NSIADs with TIERA. They are also aware lasix and lisinopril both on hold now (2) Hyperkalemia: PLAN: -Hyperkalemia is likely due to TIERA and NSAID use. Patient was also on lisinopril. -resolved, does not need to follow low K+ diet (3) Metabolic acidosis: PLAN: -Metabolic acidosis is also likely due to TIERA. Resolved. Will continue to monitor bicarb levels as patient is now having diarrhea. There is no need for supplemental sodium bicarbonate at this point. (4) Anemia: PLAN: -The patient likely has anemia due to chronic disease and possibly from malignancy being the bone. -S/P PRBC. hgb 9.4 today. Stool OB+, on IV PPI. GI has been consulted (5) Prostate cancer metastatic to bone: PLAN: -The patient had been getting radiation therapy as outpatient prior to admission. -The patient is followed by Dr. Mejia Singh as outpatient. - underwent cystoscopy, b/l stent placement and pyelogram 06/14. - Family discussing Hospice
[2021-06-16] MEDS: Loperamide 2 MG Capsule PO ×2 (12:19→14:47)
--- NOTE | 2021-06-16 14:13 | CASEMGMT ---
Addendum entered by Jaja Perez 06/16/21 16:11: Pt used [facility] with therapy and per therapy, pt would be fine to go home and suggests [facility] if pt is agreeable but states pt will likely be fine without it. Per therapy, pt would not qualify for SNF with how well he did today. This RN CM to room and pt states has [facility] at home. CM advised will discuss with him and tomorrow as is insisting on SNF for pt per SW. CM to follow. Rolo HORTON CM Addendum entered by Jaja Perez 06/16/21 15:07: This RN CM did inquire about palliative at discharge with pt and he does not disagree at this time. Rolo HORTON CM Original Note: This RN CM to room to discuss d/c plan with pt. Pt is A/Ox4 and answers all questions appropriately. Pt states that he would like to go home at discharge. Pt is aware that he was an assist of 2 with therapy yesterday and this morning but pt also refused to use [facility] per notes. Per nursing, pt has been up with [facility] this afternoon with assist x1. PT will be back to see pt. Pt states that he feels like he is steady when up. Pt states frustration with all 'these rules' about what he needs to do at discharge. Pt states 'Everyone is just making decisions for me.' Pt states he refuses to take any more treatment for his prostate CA with bony mets but has not informed Dr. Singh or family. Pt's /daughter scheduled an appt to meet with Hospice without pt permission or notifying [facility] staff until Hospice came for appt. Pt is not agreeable to Hospice and states that /daughter 'just want to kill me off.' When asked if he feels safe at home, pt voices yes. This RN CM spent time with pt, answering questions and reassuring that it's his decision on his care but also that CM wants to make sure pt has safe discharge, pt voices understanding. Pt is agreeable to use [facility] with therapy when they come back this afternoon. Pt voices no further questions/concerns/needs and thanks this RN KVNG for time spent. CM to follow. Rolo HORTON CM
[2021-06-16] MEDS: MELATONIN 10 MG TABLET PO (20:54)
[2021-06-16] MEDS: Atorvastatin Calcium 40 MG Tablet PO (20:54)
[2021-06-16] MEDS: Mirtazapine 15 MG Tablet PO (20:55)
[2021-06-17] VITALS (15 sets, daily range): BP systolic 136–159; BP diastolic 50–59; PULSE 80–97; RESP 16–18; TEMP 36.6–37.2; O2SAT 87–97
[2021-06-17] MEDS: Piperacil/Tazobactam 3.375 GM/50 ML ML IV ×3 (05:11→21:01)
[2021-06-17] MEDS: 0.9% Saline Lock 10 ML Syringe IV (05:35)
[2021-06-17 05:55] LABS: Absolute Lymphocyte Count 0.97 X10^3/uL (0.83-4.51); Absolute Neutrophil Count 3.9 X10^3/uL (2.0-7.7); Basophil# 0.02 X10^3/uL; Basophil% 0.3 % (0-1); Eosinophil# 0.09 X10^3/uL; Eosinophils% 1.6 % (0-5); Hematocrit 26.4 % (40-54); Hemoglobin 8.2 g/dL (13.0-16.5); Lymphocyte # 0.97 X10^3/ul (0.83-4.51); Lymphocyte % 16.7 % (19-41); Mean Corp Hgb Conc 31.1 g/dL (32-36); Mean Corpuscular Hgb 27.6 pg (27.0-32.0); Mean Corpuscular Volume 88.9 fL (80-94); Mean Platelet Vol. 10.1 fl (6.2-12.0); Monocyte# 0.65 X10^3/uL; Monocyte% 11.2 % (0-10); NRBC Flagged by Analyzer 0.5 % (0-5); Neutrophil # 3.91 X10^3/uL (2.7-7.7); Neutrophil % 67.4 % (47-70); Platelet Count 154 K/mm3 (150-450); RBC Distribution Width SD 52.6 fl (35.1-43.9); Red Blood Count 2.97 M/mm3 (4.6-6.2); White Blood Count 5.8 K/mm3 (4.4-11.0)
[2021-06-17 06:18] LABS: Anion Gap 6 (5-15); BUN 37 mg/dL (7-18); BUN/Creat Ratio 15.5 RATIO (10-20); Calcium,Total 8.1 mg/dL (8.5-10.1); Chloride 107 mmol/L (98-107); Creatinine, Serum 2.38 mg/dL (0.70-1.30); EST Glomerular Filtration Rate 28 mL/min (>60); Est Glom Filt Rate - Afr Amer 34 mL/min (>60); Estimated Creatinine Clearance 21.89 ml/min; Glucose 122 mg/dL (74-106); Potassium 3.9 mmol/L (3.5-5.1); Sodium Level 139 mmol/L (136-145)
[2021-06-17] MEDS: Gabapentin 300 MG Capsule PO ×2 (08:06→21:23)
[2021-06-17] MEDS: amLODIPine 10 MG Tablet PO (08:06)
[2021-06-17] MEDS: Ferrous Sulfate 325 MG Tablet PO (08:06)
[2021-06-17] MEDS: Calcium Carbonate 500 MG Tablet PO (08:07)
[2021-06-17] MEDS: Metoprolol Tartrate 25 MG Tablet PO ×2 (08:07→21:23)
--- NOTE | 2021-06-17 14:30 | PN.HOSP_ITS ---
Subjective Subjective Wanted me out of his room because of what I was preaching. Objective Data Objective Data Vital Signs: Vital Signs Temp Pulse Resp BP Pulse Ox 37.0 C 93 16 145/59 H 96 06/17/21 14:12 06/17/21 14:12 06/17/21 14:12 06/17/21 14:12 06/17/21 14:12 Oxygen Flow Rate (L/min) [ 2 AMBULATING with Oxygen #2] Oxygen Flow Rate (L/min) [ 1 AMBULATING with Oxygen #1] Oxygen Flow Rate (L/min) [At 0 REST on Room Air] Oxygen Flow Rate (L/min) 3 Oxygen Delivery Method Nasal Cannula Weight: 72.484 kg Body Mass Index (BMI) 26.6 Intake & Output: Intake and Output for Last 24 Hours 06/15/21 06/16/21 06/17/21 23:59 23:59 23:59 Intake Total 1709.75 / 1909.75 1670 / 1670 960 / 960 Output Total 800 / 1200 3200 / 3200 1250 / 1250 Balance 909.75 / 709.75 -1530 / -1530 -290 / -290 Lab / Micro Data Result Diagrams: 06/17/21 05:16 06/17/21 05:16 Labs: Laboratory Results - last 24 hr 06/17/21 05:16: Sodium 139, Potassium 3.9, Chloride 107, Carbon Dioxide 26.0, Anion Gap 6, BUN 37 H, Creatinine 2.38 H, Estim Creat Clear Calc 21.89, Est GFR (MDRD) Af Amer 34 L, Est GFR (MDRD) Non-Af 28 L, BUN/Creatinine Ratio 15.5, Glucose 122 H, Calcium 8.1 L 06/17/21 05:16: WBC 5.8, RBC 2.97 L, Hgb 8.2 L, Hct 26.4 L, MCV 88.9, MCH 27.6, MCHC 31.1 L, RDW Std Deviation 52.6 H, RDW Coeff of Nery 16.0 H, Plt Count 154, MPV 10.1, Immature Gran % (Auto) 2.800 H, Neut % (Auto) 67.4, Lymph % (Auto) 16.7 L, [place] % (Auto) 11.2 H, Eos % (Auto) 1.6, Baso % (Auto) 0.3, Absolute Neuts (auto) 3.9, Absolute Lymphs (auto) 0.97, Nucleated RBC % 0.5 Micro: Microbiology 06/14/21 07:40 Nasal Secretion SARS-CoV-2 Antigen (Rapid) - Final 06/12/21 15:15 Stool Stool Occult Blood (EDGARDO) - Final Occult Blood Positive Rhythm Strip Rhythm Strip: Sinus Rhythm Rate: 84 Ectopy: None Physical Exam Narrative Declined physical exam. Const alert Psych Mood & Affect: anxious Assessment & Plan Assessment/Plan (1) Acute blood loss anemia: (2) AMS (altered mental status): QUALIFIERS: Altered mental status type: unspecified Qualified Code(s): R41.82 - Altered mental status, unspecified PLAN: 1. Acute kidney injury Improved Ongoing and slightly worse Suspect due to hydronephrosis Nephrology and urology following No indication for renal replacement therapy at this time 2. Hydronephrosis, bilateral s/p bilateral stents. 3. Metastatic prostate cancer Complicates matter 4. Pleural effusions and anasarca Likely multifactorial Limits IV fluids patient can receive 5. Anemia Heme positive stools Hg drifting down Pt reluctantly says he would want GI evaluation. DARIO Stone. Friend. 6. VTE prophylaxis with SCDs 7. Disposition: TBD. Plan for home. Charges/Coding Visit Charges Inpatient E&M: 30445 Subs Hosp L2
[2021-06-17] MEDS: Bisacodyl 5 MG Tablet 20 MG PO (16:15)
[2021-06-17] MEDS: Electrolyte Solution/Peg's 4000 ML PO (16:16)
--- NOTE | 2021-06-17 17:39 | PN.RENAL_ITS ---
Subjective Subjective Following for TIERA. The patient denies increasing shortness of breath. He is still having diarrhea. He is also being prepped for colonoscopy tomorrow. He is on clear liquid diet. Objective Data Objective Data Vital Signs: Vital Signs Temp Pulse Resp BP Pulse Ox 98.6 F 97 16 145/51 H 96 06/17/21 16:14 06/17/21 16:14 06/17/21 16:14 06/17/21 16:14 06/17/21 16:14 Oxygen Flow Rate (L/min) [ 2 AMBULATING with Oxygen #2] Oxygen Flow Rate (L/min) [ 1 AMBULATING with Oxygen #1] Oxygen Flow Rate (L/min) [At 0 REST on Room Air] Oxygen Flow Rate (L/min) 3 Oxygen Delivery Method Nasal Cannula Weight: 72.484 kg Body Mass Index (BMI) 26.6 Intake & Output: Intake and Output for Last 24 Hours 06/15/21 06/16/21 06/17/21 23:59 23:59 23:59 Intake Total 1709.75 / 1909.75 1670 / 1670 960 / 960 Output Total 800 / 1200 3200 / 3200 1250 / 1250 Balance 909.75 / 709.75 -1530 / -1530 -290 / -290 Lab / Micro Data Result Diagrams: 06/17/21 05:16 06/17/21 05:16 Labs: Laboratory Results - last 24 hr 06/17/21 05:16: Sodium 139, Potassium 3.9, Chloride 107, Carbon Dioxide 26.0, Anion Gap 6, BUN 37 H, Creatinine 2.38 H, Estim Creat Clear Calc 21.89, Est GFR (MDRD) Af Amer 34 L, Est GFR (MDRD) Non-Af 28 L, BUN/Creatinine Ratio 15.5, Glucose 122 H, Calcium 8.1 L 06/17/21 05:16: WBC 5.8, RBC 2.97 L, Hgb 8.2 L, Hct 26.4 L, MCV 88.9, MCH 27.6, MCHC 31.1 L, RDW Std Deviation 52.6 H, RDW Coeff of Nery 16.0 H, Plt Count 154, MPV 10.1, Immature Gran % (Auto) 2.800 H, Neut % (Auto) 67.4, Lymph % (Auto) 16.7 L, [place] % (Auto) 11.2 H, Eos % (Auto) 1.6, Baso % (Auto) 0.3, Absolute Neuts (auto) 3.9, Absolute Lymphs (auto) 0.97, Nucleated RBC % 0.5 Micro: Microbiology 06/14/21 07:40 Nasal Secretion SARS-CoV-2 Antigen (Rapid) - Final 06/12/21 15:15 Stool Stool Occult Blood (EDGARDO) - Final Occult Blood Positive Rhythm Strip Rhythm Strip: Sinus Rhythm Rate: 84 Ectopy: None Physical Exam Narrative General: Alert and oriented x3, no apparent distress. HEENT: Normocephalic, atraumatic. Mucous membrane dry. Heart: Normal S1, S2. No rubs, murmurs or gallops. Lungs: Clear anteriorly. Abdomen: Normal bowel sound, soft, nontender Extremities: Trace lower extremity edema. Assessment & Plan Assessment/Plan (1) Acute kidney injury: PLAN: -No documented baseline serum creatinine on record here at [facility] and patient's daughter stated serum creatinine was normal prior to the initiation of radiation therapy 2 weeks ago. -SCr 5.1mg/dL on admission -->peaked on 06/14 to 5.54 mg/dL. Had stents placed 06/14/21 with improvement in renal function. -SCr decreased to 1.74 mg/dL on 06/15/2021. -However, SCr has increased again over the last 2 days and is now 2.38 mg/dL. -I suspect this is prerenal. The patient is having diarrhea. He is limited to clear liquid diet currently, and he is also being prepped for colonoscopy. -I will give him some IV fluid carefully. We will limit IV fluid to 500 mL overall tonight and reassess volume status and renal function again tomorrow. -Unfortunately, because of prior pleural effusion and anasarca, we are limited in terms of how much fluid we can give the patient safely. -Continue to hold lisinopril for now. -There is no current need for hemodialysis. I do not think the patient or his family would want to pursue dialysis anyway. (2) Hyperkalemia: PLAN: -Hyperkalemia was likely due to TIERA and NSAID use. Potassium level was 6.3 mmol/L on 06/11/2021. Patient was also on lisinopril. -Hyperkalemia has resolved. -We will continue to monitor potassium levels. (3) Metabolic acidosis: PLAN: -Metabolic acidosis was also likely due to TIERA. -Acidosis has also resolved with improved renal function. -Will continue to monitor bicarbonate levels as patient is now having diarrhea. -There is no need for supplemental sodium bicarbonate at this point. (4) Anemia: PLAN: -The patient likely has anemia due to chronic disease and possibly from malignancy. -S/P PRBC on 06/14/2021. -Hemoglobin is 8.2 g/dL today. -The patient is scheduled for colonoscopy tomorrow. (5) Prostate cancer metastatic to bone: PLAN: -The patient had been getting radiation therapy as outpatient prior to admission. -The patient is followed by Dr. Mejia Singh as outpatient. - underwent cystoscopy, b/l stent placement and pyelogram 06/14.
[2021-06-17] MEDS: 0.9% Normal Saline 1,000 ML 100 ML IV (18:06)
[2021-06-17] MEDS: Atorvastatin Calcium 40 MG Tablet PO (21:22)
[2021-06-17] MEDS: MELATONIN 10 MG TABLET PO (21:23)
[2021-06-17] MEDS: Mirtazapine 15 MG Tablet PO (21:25)
[2021-06-18] VITALS (19 sets, daily range): BP systolic 118–150; BP diastolic 43–62; PULSE 72–100; RESP 16–18; TEMP 36.6–37.4; O2SAT 88–99; BMI 26.6
--- NOTE | 2021-06-18 | EGD_PTH ---
PATIENT: ANUEL PIZARRO LOC: [facility] U#:[id number] AGE/SX: 81/M ROOM: [facility] RE06/11/[address]: Dr. James Garnett DO : 1940 BED: 1 DIS: 06/19/2021 SPEC #: [id number] RECD: 06/18/21 12:52 STATUS: JULIA RERaquel #: [id number] PELON: 06/18/21 00:[address]: Ra Jacehsaan DEPT: SURGICAL PATHOLOGY RECD BY: Sobia Villatoro ENTERED: 06/18/21 13:22 SP TYPE: EGD BIOPSY OT DR: DO Dr. Gerardo Vera MD Dr. Jayaprakas Dasari, MD Dr. Juan Miguel Proano, MD Dr. Nana Yaa Koram, MD Tissues: A - Esophageal mucous membrane B - Esophagus, NOS Procedures: Frozen Section (charge) Special Stain Group II Surgery Specimen Level IV Alcian Blue/PAS (control) HEADER OPERATION[place] [place] DIAGNOSIS: Anemia, GI bleed TISSUE SUBMITTED: A - Distal esophagus, FS, B ? Distal esophagus FROZEN SECTION DIAGNOSIS A. Distal esophagus, biopsy: Gastroesophageal junctional mucosa with intestinal metaplasia. No evidence of carcinoma. AM: 06/18/2021 MICROSCOPIC DIAGNOSIS A. Distal esophagus, biopsy: Gastroesophageal junction with chronic inflammation. 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 No evidence of dysplasia. See comment. B. Distal esophagus, biopsy: Gastroesophageal junction with chronic inflammation. 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 No evidence of dysplasia. See comment. AM:naseem 06/22/2021 COMMENT A & B. Alcian blue/PAS stain with matched control supports the above diagnosis. Immunohistochemistry ([id number]) for P53 and Ki-67 will be performed and results will be reported separately. Case has been reviewed in consultation with Dr. Barnett who concurs with the above diagnosis. IDC:SJ MICROSCOPIC DESCRIPTION Slides are reviewed. GROSS DESCRIPTION A - Received fresh for frozen section consultation labeled with the patient's name is a specimen designated distal esophagus mass. The specimen consists of multiple irregular fragments of pink-barber soft tissue that in aggregate measure 0.5 x 0.5 x 0.1 cm. The specimen is totally submitted for frozen section consultation in one block. / AM:naseem 06/18/2021 B - Received in fixative is one container labeled with the patient's name and designated distal esophagus biopsy. The specimen consists of multiple irregular fragments of light barber soft tissue that in aggregate measure 0.6 x 0.6 x 0.1 cm. The specimen is totally submitted in one cassette. / AM:naseem 06/21/2021 TC:3 CPT: 66772 x2, 17478, 19522 x2
--- NOTE | 2021-06-18 | IMM_PTH ---
PATIENT: ANUEL PIZARRO LOC: [facility] U#:[id number] AGE/SX: 81/M ROOM: [facility] RE06/11/[address]: Dr. James Garnett DO : 1940 BED: 1 DIS: 06/19/2021 SPEC #: [id number] RECD: 06/22/21 13:19 STATUS: JULIA REQ #: [id number] PELON: 06/18/21 00:[address]: Ra Jacehsaan DEPT: IMMUNOHISTOCHEMISTRY RECD BY: Sobia Villatoro ENTERED: 06/22/21 13:24 SP TYPE: IMMUNO OTHR DR: DO Dr. Gerardo Vera MD Dr. Jayaprakas Dasari, MD Dr. Juan Miguel Proano, MD Dr. Nana Yaa Koram, MD Tissues: A - Esophagus, NOS B - Esophagus, NOS Procedures: P53 (initial) KI-67 (add) H.PYLORI (add) PHYSICIAN & [place] [id number] SPECIMEN INFORMATION: Tissue Source: A ? Distal esophagus, B ? Distal esophagus Clinical Info: Anemia, GI bleed Specimen Number: [id number] A & B CPT code: 50436 x2, 90807 x3 METHODOLOGY: Deparaffinized sections of prefer/formalin-fixed tissue or PAP/DQ stained slides are incubated with monoclonal/polyclonal antibodies/oligonucleotide probes. Localization is made via biotin free immunoperoxidase method. Appropriate controls are performed and reacted as expected. Results on target cell population are indicated in the following table: RESULTS: ANTIBODY / CLONE RESULT Block A P53 (DO-7) negative Ki-67 (30-9) positive, low H Pylori (polyclonal) negative Block B P53 (DO-7) negative Ki-67 (30-9) positive, low These tests were developed and their performance characteristics determined by [facility]. They may not have been cleared or approved by the U.S. Food and Drug Administration. The FDA has determined that such clearance or approval is not necessary. The above immunohistochemical/dualISH markers are ordered and reviewed by the Pathologist. INTERPRETATION: A. Distal esophagus, biopsy: No evidence of dysplasia. Negative for Helicobacter pylori organisms. B. Distal esophagus, biopsy: No evidence of dysplasia. AM:naseem 06/23/2021
[2021-06-18] MEDS: Piperacil/Tazobactam 3.375 GM/50 ML ML IV ×3 (05:08→21:00)
--- NOTE | 2021-06-18 05:55 | EKG12_ITS ---
Test Reason : AM EKG Blood Pressure : / mmHG Vent. Rate : 081 BPM Atrial Rate : 081 BPM P-R Int : 158 ms QRS Dur : 094 ms QT Int : 388 ms P-R-T Axes : 011 -10 043 degrees QTc Int : 450 ms Sinus rhythm with Premature atrial complexes Otherwise normal ECG When compared with ECG of 16-JUN-2021 08:58, Premature atrial complexes are now Present Confirmed by INA DELA CRUZ, SAMARIA ([id number]), editorial intern SYLVESTER ROSENBERG ([id number]) on 06/22/2021 8:54:36 AM Referred By: DR MARIE Confirmed By:SAMARIA BUCKLEY MD
[2021-06-18 06:35] LABS: Hematocrit 25.1 % (40-54); Hemoglobin 7.8 g/dL (13.0-16.5); Mean Corp Hgb Conc 31.1 g/dL (32-36); Mean Corpuscular Hgb 27.5 pg (27.0-32.0); Mean Corpuscular Volume 88.4 fL (80-94); Mean Platelet Vol. 9.5 fl (6.2-12.0); POSITIVE COUNT YES; POSITIVE MORPHOLOGY YES; Platelet Count 136 K/mm3 (150-450); RBC Distribution Width CV 15.8 % (11.6-14.6); RBC Distribution Width SD 49.9 fl (35.1-43.9); Red Blood Count 2.84 M/mm3 (4.6-6.2); White Blood Count 6.4 K/mm3 (4.4-11.0)
[2021-06-18 06:41] LABS: Differential Indicated MANUAL DIFF
[2021-06-18 06:44] LABS: International Normalized Ratio 1.7; Prothrombin Time (Protime)PT. 18.9 SECONDS (11.7-14.9)
[2021-06-18 06:45] LABS: Partial Thromboplast Time 41.1 Seconds (24.1-36.2)
[2021-06-18 06:53] LABS: Total Cells Counted 100 (MANUAL DIFF)
[2021-06-18 06:55] LABS: Eosinophil 1 % (0-5); Lymphocyte 13 % (19-41); Metamyelocyte 1 % (0-1); Monocyte 7 % (0-10); Myelocyte 2 % (0-0); Neutrophil-Band 1 % (0-5); Neutrophil-Segmented 75 % (47-70); Nucleated Red Bld Cells,Manual 1 % (0-5); Platelet Estimate ADEQUATE (ADEQ)
[2021-06-18 06:56] LABS: Absolute Lymphocyte Count 0.83 X10^3/uL (0.83-4.51); Absolute Neutrophil Count 4.8 X10^3/uL (2.0-7.7); Lymphocyte # 0.83 X10^3/ul (0.83-4.51); Neutrophil # 4.84 X10^3/uL (2.7-7.7); Red Cell Morphology NORM C+C NORMAL (NORM C&C)
[2021-06-18 07:00] LABS: Albumin, Serum 1.5 g/dL (3.2-5.0); BUN 39 mg/dL (7-18); BUN/Creat Ratio 15.4 RATIO (10-20); Calcium,Total 8.2 mg/dL (8.5-10.1); Chloride 105 mmol/L (98-107); Creatinine, Serum 2.53 mg/dL (0.70-1.30); EST Glomerular Filtration Rate 26 mL/min (>60); Est Glom Filt Rate - Afr Amer 32 mL/min (>60); Estimated Creatinine Clearance 20.59 ml/min; Glucose 123 mg/dL (74-106); Phosphorus 3.4 mg/dL (2.5-4.9); Potassium 3.2 mmol/L (3.5-5.1); Sodium Level 139 mmol/L (136-145)
[2021-06-18] MEDS: Menthol/Lanolin/Calamine/Znox 113 GM Tube 1 APPLIC TOPICAL ×2 (11:28→20:55)
--- NOTE | 2021-06-18 13:18 | OP.EGD_ITS ---
Patient Name: Babar Powers Procedure Date: 06/18/2021 12:22 PM Date of : 1940 Age: 81 Procedure: Upper GI endoscopy Indications: Iron deficiency anemia Providers: Giorgi Mccormick DO Medicines: See the Anesthesia note for documentation of the administered medications Patient Profile: This is a 81 year old male. Refer to note in patient chart for documentation of history and physical. Patient has symptoms. Complications: No immediate complications. Procedure: Pre-Anesthesia Assessment: - Prior to the procedure, a History and Physical was performed, and patient medications and allergies were reviewed. The patient is competent. The risks and benefits of the procedure and the sedation options and risks were discussed with the patient. All questions were answered and informed consent was obtained. Patient identification and proposed procedure were verified by the physician in the pre-procedure area. Mental Status Examination: alert and oriented. Airway Examination: normal oropharyngeal airway and neck mobility. Respiratory Examination: clear to auscultation. CV Examination: normal. Prophylactic Antibiotics: The patient does not require prophylactic antibiotics. Prior Anticoagulants: The patient has taken no previous anticoagulant or antiplatelet agents. After reviewing the risks and benefits, the patient was deemed in satisfactory condition to undergo the procedure. The anesthesia plan was to use moderate sedation / analgesia (conscious sedation). Immediately prior to administration of medications, the patient was re-assessed for adequacy to receive sedatives. The heart rate, respiratory rate, oxygen saturations, blood pressure, adequacy of pulmonary ventilation, and response to care were monitored throughout the procedure. The physical status of the patient was re-assessed after the procedure. After obtaining informed consent, the endoscope was passed under direct vision. Throughout the procedure, the patient's blood pressure, pulse, and oxygen saturations were monitored continuously. The Colonoscope was introduced through the mouth, and advanced to the second part of duodenum. The upper GI endoscopy was accomplished without difficulty. The patient tolerated the procedure well. Moderate Sedation: Moderate (conscious) sedation was administered by the endoscopy nurse and supervised by the endoscopist. The following parameters were monitored: oxygen saturation, heart rate, blood pressure, and response to care. Total physician intraservice time was 15 minutes. Scope In: 12:33:43 PM Scope Out: 12:45:49 PM Total Procedure Duration Time 0 hours 12 minutes 6 seconds Findings: One cratered esophageal ulcer with oozing blood and stigmata of recent bleeding was found 38 to 40 cm from the incisors. The lesion was 6 mm in largest dimension. Coagulation for hemostasis using heater probe was successful. Estimated blood loss was minimal. A medium-sized, ulcerating mass with no bleeding and no stigmata of recent bleeding was found in the lower third of the esophagus, 38 cm from the incisors. The mass was non-obstructing. Biopsies were taken with a cold forceps for histology. Verification of patient identification for the specimen was done. Estimated blood loss was minimal. The entire examined stomach was normal. No gross lesions were noted in the first portion of the duodenum. Impression: - Bleeding esophageal ulcer. Treated with a heater probe. 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 Biopsied. - Normal stomach. - No gross lesions in the first portion of the duodenum. Recommendation: - Return patient to hospital [facility] for ongoing care. - Resume previous diet. - Continue present medications. - Await pathology results. Procedure Code(s): --- Professional --- 83744, 59, Esophagogastroduodenoscopy, flexible, transoral; with control of bleeding, any method 25725, Esophagogastroduodenoscopy, flexible, transoral; with biopsy, single or multiple 89588, 59, Moderate sedation services provided by the same physician or other qualified health child care education coordinator performing the diagnostic or therapeutic service that the sedation supports, requiring the presence of an independent trained observer to assist in the monitoring of the patient's level of consciousness and physiological status; initial 15 minutes of intraservice time, patient age 5 years or older CPT copyright 2017 [employer]. All rights reserved. The codes documented in this report are preliminary and upon construction inspector review may be revised to meet current compliance requirements. Giorgi Mccormick DO 06/18/2021 1:17:17 PM This report has been signed electronically. Number of Addenda: 1 Note Initiated On: 06/18/2021 12:22 PM Addendum Number: 1 Addendum Date: 12/29/2021 6:23:39 AM MAC was used as sedation for this procedure. Giorgi Mccormick DO 12/29/2021 6:23:43 AM This report has been signed electronically.
--- NOTE | 2021-06-18 13:18 | OP.CCLET_ITS ---
12/29/2021 Gerardo Roa MD Re : Upper GI endoscopy procedure for Babar Powers Dear Dr. Roa This procedure was performed on Friday, June 18, 2021. My impressions and recommendations are as follows: Impressions : - Bleeding esophageal ulcer. Treated with a heater probe. 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 Biopsied. - Normal stomach. - No gross lesions in the first portion of the duodenum. Recommendations : - Return patient to hospital [facility] for ongoing care. - Resume previous diet. - Continue present medications. - Await pathology results. My findings are described in the full procedure note, which is enclosed. If I can be of further assistance, please feel free to contact me at . Sincerely, Giorgi Mccormick, 06/18/2021 1:17:17 PM This report has been signed electronically.
--- NOTE | 2021-06-18 13:23 | OP.COLON_ITS ---
Patient Name: Babar Powers Procedure Date: 06/18/2021 12:49 PM Date of : 1940 Age: 81 Procedure: Colonoscopy Indications: Iron deficiency anemia Providers: Giorgi Mccormick DO Medicines: See the Anesthesia note for documentation of the administered medications Patient Profile: This is a 81 year old male. Refer to note in patient chart for documentation of history and physical. Patient has symptoms. Last Colonoscopy: date unknown. Unable to locate last colonoscopy report. Complications: No immediate complications. Procedure: Pre-Anesthesia Assessment: - Prior to the procedure, a History and Physical was performed, and patient medications and allergies were reviewed. The patient is competent. The risks and benefits of the procedure and the sedation options and risks were discussed with the patient. All questions were answered and informed consent was obtained. Patient identification and proposed procedure were verified by the physician in the pre-procedure area. Mental Status Examination: alert and oriented. Airway Examination: normal oropharyngeal airway and neck mobility. Respiratory Examination: clear to auscultation. CV Examination: normal. Prophylactic Antibiotics: The patient does not require prophylactic antibiotics. Prior Anticoagulants: The patient has taken no previous anticoagulant or antiplatelet agents. After reviewing the risks and benefits, the patient was deemed in satisfactory condition to undergo the procedure. The anesthesia plan was to use moderate sedation / analgesia (conscious sedation). Immediately prior to administration of medications, the patient was re-assessed for adequacy to receive sedatives. The heart rate, respiratory rate, oxygen saturations, blood pressure, adequacy of pulmonary ventilation, and response to care were monitored throughout the procedure. The physical status of the patient was re-assessed after the procedure. After I obtained informed consent, the scope was passed under direct vision. Throughout the procedure, the patient's blood pressure, pulse, and oxygen saturations were monitored continuously. The Colonoscope was introduced through the anus and advanced to the cecum, identified by the appendiceal orifice, ileocecal valve and palpation. The colonoscopy was performed without difficulty. The patient tolerated the procedure well. The quality of the bowel preparation was good. Moderate Sedation: Moderate (conscious) sedation was administered by the endoscopy nurse and supervised by the endoscopist. The patient's oxygen saturation, heart rate, blood pressure and response to care were monitored. Total physician intraservice time was 15 minutes. Scope In: 12:51:36 PM Scope Withdrawal Time 0 hours 9 minutes 19 seconds Scope Out: 1:12:07 PM Total Procedure Duration Time 0 hours 20 minutes 31 seconds Findings: The perianal and digital rectal examinations were normal. There was evidence of a prior end-to-end colo-colonic anastomosis in the recto-sigmoid colon. This was patent. The anastomosis was traversed. A few small and large-mouthed diverticula were found in the sigmoid colon and descending colon. There was no evidence of diverticular bleeding. The exam was otherwise without abnormality. Impression: - Patent end-to-end colo-colonic anastomosis. - Moderate diverticulosis in the sigmoid colon and in the descending colon. There was no evidence of diverticular bleeding. - The examination was otherwise normal. - No specimens collected. Recommendation: - Return patient to hospital [facility] for ongoing care. - Resume previous diet. - Continue present medications. - No repeat colonoscopy due to age. Procedure Code(s): --- Professional --- 31187, Colonoscopy, flexible; diagnostic, including collection of specimen(s) by brushing or washing, when performed (separate procedure) 94497, 59, Moderate sedation services provided by the same physician or other qualified health dialysis patient care technician performing the diagnostic or therapeutic service that the sedation supports, requiring the presence of an independent trained observer to assist in the monitoring of the patient's level of consciousness and physiological status; initial 15 minutes of intraservice time, patient age 5 years or older CPT copyright 2017 [employer] [place] [employer]. All rights reserved. The codes documented in this report are preliminary and upon catheterization laboratory technician review may be revised to meet current compliance requirements. Giorgi Mccormick DO 06/18/2021 1:22:54 PM This report has been signed electronically. Number of Addenda: 1 Note Initiated On: 06/18/2021 12:49 PM Addendum Number: 1 Addendum Date: 12/29/2021 6:23:51 AM MAC was used as sedation for this procedure. Giorgi Mccormick DO 12/29/2021 6:23:55 AM This report has been signed electronically.
--- NOTE | 2021-06-18 13:24 | OP.CCLET_ITS ---
12/29/2021 Gerardo Roa MD Re : Colonoscopy procedure for Babar Powers Dear Dr. Roa This procedure was performed on Friday, June 18, 2021. My impressions and recommendations are as follows: Impressions : - Patent end-to-end colo-colonic anastomosis. - Moderate diverticulosis in the sigmoid colon and in the descending colon. There was no evidence of diverticular bleeding. - The examination was otherwise normal. - No specimens collected. Recommendations : - Return patient to hospital [facility] for ongoing care. - Resume previous diet. - Continue present medications. - No repeat colonoscopy due to age. My findings are described in the full procedure note, which is enclosed. If I can be of further assistance, please feel free to contact me at . Sincerely, Giorgi Mccormick, 06/18/2021 1:22:54 PM This report has been signed electronically.
--- NOTE | 2021-06-18 13:45 | PN.HOSP_ITS ---
Subjective Subjective no new events. Objective Data Objective Data Vital Signs: Vital Signs Temp Pulse Resp BP Pulse Ox 37.4 C H 74 16 125/45 H 99 06/18/21 13:21 06/18/21 13:40 06/18/21 13:40 06/18/21 13:40 06/18/21 13:40 Oxygen Flow Rate (L/min) [ 2 AMBULATING with Oxygen #2] Oxygen Flow Rate (L/min) [ 1 AMBULATING with Oxygen #1] Oxygen Flow Rate (L/min) [At 0 REST on Room Air] Oxygen Flow Rate (L/min) 3 Oxygen Delivery Method Nasal Cannula Weight: 72.48 kg Body Mass Index (BMI) 26.6 Intake & Output: Intake and Output for Last 24 Hours 06/16/21 06/17/21 06/18/21 23:59 23:59 23:59 Intake Total 1670 / 1670 2770 / 2770 2114 / 2114 Output Total 3200 / 3200 2100 / 2100 750 / 750 Balance -1530 / -1530 670 / 670 1364 / 1364 Lab / Micro Data Result Diagrams: 06/18/21 06:20 06/18/21 06:20 Labs: Laboratory Results - last 24 hr 06/18/21 06:20: Sodium 139, Potassium 3.2 L, Chloride 105, Carbon Dioxide 26.0, BUN 39 H, Creatinine 2.53 H, Estim Creat Clear Calc 20.59, Est GFR (MDRD) Af A desi 32 L, Est GFR (MDRD) Non-Af 26 L, BUN/Creatinine Ratio 15.4, Glucose 123 H, Calcium 8.2 L, Phosphorus 3.4, Albumin 1.5 L 06/18/21 06:20: WBC 6.4, RBC 2.84 L, Hgb 7.8 L, Hct 25.1 L, MCV 88.4, MCH 27.5, MCHC 31.1 L, RDW Std Deviation 49.9 H, RDW Coeff of Nery 15.8 H, Plt Count 136 L, MPV 9.5, Neut % (Auto) Not Reportable, Absolute Neuts (auto) 4.8, Absolute Lymphs (auto) 0.83, Total Counted 100, Neutrophils % (Manual) 75 H, Band Neutrophils % 1, Lymphocytes % (Manual) 13 L, Monocytes % (Manual) 7, Eosinophils % (Manual) 1, Metamyelocytes % 1, Myelocytes % 2 H, Nucleated RBCs/100 WBC 1, Diff Path Review May foll, Platelet Estimate ADEQUATE, RBC Morphology NORM C+C 06/18/21 06:20: PT 18.9 H, INR 1.7, APTT 41.1 H Micro: Microbiology 06/14/21 07:40 Nasal Secretion SARS-CoV-2 Antigen (Rapid) - Final 06/12/21 15:15 Stool Stool Occult Blood (EDGARDO) - Final Occult Blood Positive Rhythm Strip Rhythm Strip: Sinus Rhythm Rate: 84 Ectopy: None Physical Exam Const alert and no apparent distress Resp normal respiratory effort, no retractions, no use of accessory muscles and clear to auscultation bilaterally Cardio regular rate, regular rhythm, S1 normal heart sound and S2 normal heart sound GI normal to inspection, nondistended, normoactive bowel sounds, soft to palpation, non-tender and non-distended Extremity normal to inspection Assessment & Plan Assessment/Plan (1) Acute blood loss anemia: (2) AMS (altered mental status): QUALIFIERS: Altered mental status type: unspecified Qualified Code(s): R41.82 - Altered mental status, unspecified (3) Esophageal ulcer: QUALIFIERS: Esophageal ulcer bleeding: with bleeding Qualified Code(s): K22.11 - Ulcer of esophagus with bleeding PLAN: 1. Acute kidney injury Improved Ongoing and slightly worse Suspect due to hydronephrosis Nephrology and urology following No indication for renal replacement therapy at this time 2. Hydronephrosis, bilateral s/p bilateral stents. 3. Acute blood loss anemia 2/2 bleeding esophageal ulcer monitor transfuse if Hg < 7 4. Esophageal ulcer noted on EGD on 06/18: status post heater-probe continue IV pantoprazole 5. Metastatic prostate cancer Complicates matter 6. Pleural effusions and anasarca Likely multifactorial Limits IV fluids patient can receive 7. VTE prophylaxis with SCDs 8. Disposition: TBD. Plan for home. Charges/Coding Visit Charges Inpatient E&M: 48186 Subs Hosp L2
[2021-06-18] MEDS: Calcium Carbonate 500 MG Tablet PO (15:28)
[2021-06-18] MEDS: Methadone 10 MG Tablet PO ×2 (15:28→21:11)
[2021-06-18] MEDS: Metoprolol Tartrate 25 MG Tablet PO ×2 (15:28→20:58)
[2021-06-18] MEDS: Gabapentin 300 MG Capsule PO ×2 (15:28→20:59)
[2021-06-18] MEDS: amLODIPine 10 MG Tablet PO (15:29)
[2021-06-18] MEDS: Ferrous Sulfate 325 MG Tablet PO (15:30)
--- NOTE | 2021-06-18 15:32 | CASEMGMT ---
This RN CM to room to discuss d/c plan with pt/. updated on pt's therapy notes from Mon/ and that therapy states pt ok to go home and no need for SNF but that pt needs to use [facility] at home. states she is fine with pt coming home as long as he can transfer and walk safely. Pt aware again that he needs to use [facility] at home, voices understanding. Pt is on 3L nc and states they would like [employer] for home oxygen, if needed. Green sheet left on chart for O2. Pt did have scopes today and is somewhat weaker after bowel prep. CM to follow therapy notes on Monday to make sure pt still able to go home safely. aware that palliative with f/u with them once home, voices understanding and states 'we will definitely keep them.' Pt/ voices no further questions/concerns/needs. CM to follow. SStyesenia HORTON CM
--- NOTE | 2021-06-18 18:34 | PCM.PN.REN ---
Subjective Subjective Following for TIERA. The patient denies chest pain or shortness of breath. Diarrhea is less severe today. Objective Data Objective Data Vital Signs: Vital Signs Temp Pulse Resp BP Pulse Ox 98.8 F 80 16 133/53 H 95 06/18/21 14:44 06/18/21 15:28 06/18/21 14:44 06/18/21 15:28 06/18/21 14:44 Oxygen Flow Rate (L/min) [ 2 AMBULATING with Oxygen #2] Oxygen Flow Rate (L/min) [ 1 AMBULATING with Oxygen #1] Oxygen Flow Rate (L/min) [At 0 REST on Room Air] Oxygen Flow Rate (L/min) 3 Oxygen Delivery Method Nasal Cannula Weight: 72.48 kg Body Mass Index (BMI) 26.6 Intake & Output: Intake and Output for Last 24 Hours 06/16/21 06/17/21 06/18/21 23:59 23:59 23:59 Intake Total 1670 / 1670 2770 / 2770 3114 / 3114 Output Total 3200 / 3200 2100 / 2100 1350 / 1350 Balance -1530 / -1530 670 / 670 1764 / 1764 Lab / Micro Data Result Diagrams: 06/18/21 06:20 06/18/21 06:20 Labs: Laboratory Results - last 24 hr 06/18/21 06:20: Sodium 139, Potassium 3.2 L, Chloride 105, Carbon Dioxide 26.0, BUN 39 H, Creatinine 2.53 H, Estim Creat Clear Calc 20.59, Est GFR (MDRD) Af Amer 32 L, Est GFR (MDRD) Non-Af 26 L, BUN/Creatinine Ratio 15.4, Glucose 123 H, Calcium 8.2 L, Phosphorus 3.4, Albumin 1.5 L 06/18/21 06:20: WBC 6.4, RBC 2.84 L, Hgb 7.8 L, Hct 25.1 L, MCV 88.4, MCH 27.5, MCHC 31.1 L, RDW Std Deviation 49.9 H, RDW Coeff of Nery 15.8 H, Plt Count 136 L, MPV 9.5, Neut % (Auto) Not Reportable, Absolute Neuts (auto) 4.8, Absolute Lymphs (auto) 0.83, Total Counted 100, Neutrophils % (Manual) 75 H, Band Neutrophils % 1, Lymphocytes % (Manual) 13 L, Monocytes % (Manual) 7, Eosinophils % (Manual) 1, Metamyelocytes % 1, Myelocytes % 2 H, Nucleated RBCs/100 WBC 1, Diff Path Review August, Platelet Estimate ADEQUATE, RBC Morphology NORM C+C 06/18/21 06:20: PT 18.9 H, INR 1.7, APTT 41.1 H Micro: Microbiology 06/14/21 07:40 Nasal Secretion SARS-CoV-2 Antigen (Rapid) - Final 06/12/21 15:15 Stool Stool Occult Blood (EDGARDO) - Final Occult Blood Positive Rhythm Strip Rhythm Strip: Sinus Rhythm Rate: 84 Ectopy: None Physical Exam Narrative General: Alert and oriented x3, no apparent distress. HEENT: Normocephalic, atraumatic. Mucous membrane dry. Heart: Normal S1, S2. No rubs, murmurs or gallops. Lungs: Clear anteriorly. Abdomen: Normal bowel sound, soft, nontender Extremities: Trace lower extremity edema. Assessment & Plan Assessment/Plan (1) Acute kidney injury: PLAN: -No documented baseline serum creatinine on record here at [facility] and patient's daughter stated serum creatinine was normal prior to the initiation of radiation therapy 2 weeks ago. -SCr was 5.1 mg/dL on admission --> serum creatinine peaked on 06/14 at 5.54 mg/dL. Had stents placed 06/14/21 with improvement in renal function. -SCr decreased to 1.74 mg/dL on 06/15/2021. -However, SCr has increased again since 06/16/2021 and is now 2.53 mg/dL today. -I suspect there is some component of effective blood volume depletion. The patient had diarrhea and he was being prepped yesterday for colonoscopy. -I gave the patient limited amount of IV fluid (500 mL) yesterday. -His weight is stable, and diarrhea has improved. Therefore, I will hold off on further IV fluid today. -Encouraged the patient to push oral intake. -Unfortunately, because of prior pleural effusion and anasarca, we are limited in terms of how much fluid we can give the patient safely. -Continue to hold lisinopril for now. -There is no current need for kidney replacement therapy. I do not think the patient or his family would want to pursue dialysis anyway. -Recheck renal function again tomorrow. (2) Hyperkalemia: PLAN: -Hyperkalemia was likely due to TIERA and NSAID use. Potassium level was 6.3 mmol/L on 06/11/2021. Patient was also on lisinopril. -Hyperkalemia has resolved. The patient is now actually hypokalemic, likely from bowel prep and diarrhea. -We will continue to monitor potassium levels. (3) Metabolic acidosis: PLAN: -Metabolic acidosis was also likely due to TIERA. -Acidosis has also resolved. -Will continue to monitor bicarbonate levels as patient is now having diarrhea. -There is no need for supplemental sodium bicarbonate at this point. (4) Anemia: PLAN: -The patient likely has anemia due to chronic disease and possibly from malignancy. -S/P PRBC on 06/14/2021. -Hemoglobin is 7.8 g/dL today. -There was no active bleeding seen on colonoscopy today. -We will defer decision for further transfusion to primary team. (5) Prostate cancer metastatic to bone: PLAN: -The patient had been getting radiation therapy as outpatient prior to admission. -The patient is followed by Dr. Mejia Singh as outpatient. - underwent cystoscopy, b/l stent placement and pyelogram 06/14.
[2021-06-18] MEDS: Atorvastatin Calcium 40 MG Tablet PO (20:58)
[2021-06-18] MEDS: MELATONIN 10 MG TABLET PO (20:58)
[2021-06-18] MEDS: Mirtazapine 15 MG Tablet PO (20:59)
[2021-06-19] VITALS (11 sets, daily range): BP systolic 122–143; BP diastolic 50–77; PULSE 61–79; RESP 18; TEMP 36.2–36.3; O2SAT 87–100
[2021-06-19] MEDS: Piperacil/Tazobactam 3.375 GM/50 ML ML IV (05:05)
[2021-06-19 05:28] LABS: Hematocrit 26.6 % (40-54); Hemoglobin 8.5 g/dL (13.0-16.5); Mean Corpuscular Hgb 28.3 pg (27.0-32.0); Mean Corpuscular Volume 88.7 fL (80-94); Mean Platelet Vol. 10.6 fl (6.2-12.0); POSITIVE COUNT YES; POSITIVE MORPHOLOGY YES; Platelet Count 149 K/mm3 (150-450); RBC Distribution Width CV 15.3 % (11.6-14.6); RBC Distribution Width SD 49.5 fl (35.1-43.9); White Blood Count 6.7 K/mm3 (4.4-11.0)
[2021-06-19 05:36] LABS: Differential Indicated MANUAL DIFF
[2021-06-19 05:55] LABS: Total Cells Counted 100 (MANUAL DIFF)
[2021-06-19 05:57] LABS: Lymphocyte 7 % (19-41); Metamyelocyte 3 % (0-1); Monocyte 9 % (0-10); Myelocyte 5 % (0-0); Neutrophil-Band 1 % (0-5); Neutrophil-Segmented 75 % (47-70); Nucleated Red Bld Cells,Manual 1 % (0-5); Platelet Estimate ADEQUATE (ADEQ)
[2021-06-19 05:58] LABS: Absolute Lymphocyte Count 0.47 X10^3/uL (0.83-4.51); Absolute Neutrophil Count 5.1 X10^3/uL (2.0-7.7); Lymphocyte # 0.47 X10^3/ul (0.83-4.51); Neutrophil # 5.06 X10^3/uL (2.7-7.7); Red Cell Morphology NORM C+C NORMAL (NORM C&C)
[2021-06-19 06:06] LABS: Anion Gap 8 (5-15); BUN 43 mg/dL (7-18); BUN/Creat Ratio 17.8 RATIO (10-20); Calcium,Total 7.8 mg/dL (8.5-10.1); Chloride 105 mmol/L (98-107); Creatinine, Serum 2.42 mg/dL (0.70-1.30); EST Glomerular Filtration Rate 28 mL/min (>60); Est Glom Filt Rate - Afr Amer 33 mL/min (>60); Estimated Creatinine Clearance 21.53 ml/min; Glucose 144 mg/dL (74-106); Potassium 3.6 mmol/L (3.5-5.1); Sodium Level 139 mmol/L (136-145)
[2021-06-19] MEDS: Metoprolol Tartrate 25 MG Tablet PO (08:23)
[2021-06-19] MEDS: Ferrous Sulfate 325 MG Tablet PO (08:24)
[2021-06-19] MEDS: Gabapentin 300 MG Capsule PO (08:24)
[2021-06-19] MEDS: Calcium Carbonate 500 MG Tablet PO (08:24)
[2021-06-19] MEDS: amLODIPine 10 MG Tablet PO (08:25)
[2021-06-19] MEDS: Menthol/Lanolin/Calamine/Znox 113 GM Tube 1 APPLIC TOPICAL (08:25)
[2021-06-19] MEDS: Methadone 10 MG Tablet PO (08:31)
--- NOTE | 2021-06-19 10:48 | PCM.DC ---
Discharge Instructions Diet Discharge Diet: No restrictions (no spicy food. minimize acidic foods.) Dressing / Incision Call your doctor if you observe: Fever of 101 or Higher, Shortness of breath and - (blood in stools. dark tarry stools) Follow Up Care Test Results: Test results from this visit will be discussed in further detail at your follow-up appointment, if applicable. Discharge Plan Admission Admit Date/Time: 06/11/21 14:14 Primary Reason for Your Visit: TIERA. hydronephrosis. GI bleed. Esophageal ulcer. Attending Provider: James Garnett Primary Care Provider: Gerardo Roa Consulting Providers: Delicia Arrieta ; Gregory Romo ; Friend,Giorgi Discharge Orders/Prescriptions Prescriptions: New pantoprazole [Protonix] 40 mg tablet,delayed release (DR/EC) 40 mg PO BID Qty: 60 RF: 0 colestipol [Colestid] 1 gram Tablet 2 g PO DAILY Qty: 30 RF: 0 Continued vitamin B complex Tablet Extended Release 1 tab PO DAILY RF: 0 loperamide 2 mg Tablet 2 mg PO PRN (Reason: Diarrhea) RF: 0 diphenoxylate-atropine 2.5-0.025 mg tablet 1 - 2 tab PO Q6H PRN (Reason: Diarrhea) RF: 0 amlodipine 5 mg tablet 5 mg PO DAILY RF: 0 famotidine 20 mg Tablet 20 mg PO 4X/DAY RF: 0 magnesium oxide [MagOx] 400 mg (241.3 mg magnesium) Tablet 400 mg PO DAILY RF: 0 ferrous sulfate 325 mg (65 mg iron) Tablet 325 mg PO DAILY RF: 0 ascorbate calcium (vitamin C) 500 mg Tablet 1,000 mg PO DAILY RF: 0 clotrimazole-betamethasone 1-0.05 % cream 1 applic TOPICAL BID RF: 0 promethazine 25 mg Tablet 25 mg PO Q6H PRN (Reason: Nausea) RF: 0 gabapentin 300 mg Capsule 300 mg PO BID RF: 0 furosemide [Lasix] 20 mg Tablet 20 mg PO DAILY RF: 0 mirtazapine 15 mg Tablet 15 mg PO QHS RF: 0 loratadine [Claritin] 10 mg Tablet 10 mg PO DAILY RF: 0 calcium citrate 200 mg (950 mg) Tablet 950 mg PO DAILY RF: 0 txhjpcgeujhs-grcrzjpr-frzvxv Tablet 1 tab PO DAILY RF: 0 Co Q-10 300 mg Capsule 300 mg PO BID RF: 0 metoprolol tartrate 25 mg Tablet 12.5 mg PO BID RF: 0 Refresh Relieva 0.5-0.9 % Drops 1 drp RIGHT EYE 4X/DAY RF: 0 melatonin 10 mg Tablet 10 mg PO QHS RF: 0 Myrbetriq 50 mg Tablet Extended Release 24 Hr 50 mg PO DAILY RF: 0 cholecalciferol (vitamin D3) 250 mcg (10,000 unit) Tablet 250 mcg PO DAILY RF: 0 naloxone 4 mg/actuation [place],Non-Aerosol 4 mg INTRANASAL Q3M PRN (Reason: Opioid Overdose) RF: 0 Metamucil 1 tbsp PO/SL DAILY PRN (Reason: Constipation) RF: 0 PreserVision AREDS 1 tab PO/SL BID RF: 0 cyanocobalamin (vitamin B-12) [Vitamin B-12] 1,000 mcg Tablet 1,000 mcg PO DAILY RF: 0 rosuvastatin 20 mg Tablet 20 mg PO DAILY RF: 0 Changed sennosides [senna] 8.6 mg Tablet 8.6 mg PO QHS PRN (Reason: stool) Qty: 0 RF: 0 Discontinued methadone 10 mg tablet 10 mg PO BID RF: 0 aspirin [Adult Low Dose Aspirin] 81 mg tablet,delayed release (DR/EC) 81 mg PO DAILY RF: 0 hydrocodone-acetaminophen 7.5-325 mg tablet 1 tab PO Q4H PRN (Reason: Pain) RF: 0 lisinopril 40 mg tablet 60 mg PO DAILY RF: 0 fkwuhbudmxu-npbmkxsrr-odh C-Mn [Glucosamine 1500 Complex] 500-400 mg Capsule 3 cap PO DAILY RF: 0 methylsulfonylmethane [MSM] 1,000 mg Tablet 1,000 mg PO DAILY RF: 0 pseudoephedrine HCl [Sudafed] 30 mg Tablet 30 mg PO DAILY RF: 0 saw palmetto 450 mg Capsule 450 mg PO DAILY RF: 0 resveratrol 250 mg Capsule 250 mg PO DAILY RF: 0 ribose 20 kcal/5 gram Powder PO DAILY RF: 0 Referrals / Follow Up: Gerardo Roa MD [Primary Care Provider] - Within 2 Weeks Gregory Romo MD [STAFF PHYSICIAN] - Within 2 Weeks Giorgi Mccormick DO [STAFF PHYSICIAN] - Within 1 Month Disposition Disposition (needs filled in before D/C Order can be placed): Home Health Service
--- NOTE | 2021-06-19 11:06 | PCM.DC.SUM ---
Providers Date of Admission: 06/11/21 Primary Care Physician: Dr. Gerardo Roa MD Consultations 06/11/21 16:46 Consult: Nephrology Routine Consulting Provider: Delicia Arrieta Reason for Consult: TIERA, hyperkalemia EMERGENT Consult: No Notified: Yes Date Notified: 06/11/21 Time Notified: 15:32 Method of Notification: Text 06/11/21 18:56 Consult: Urology Routine Consulting Provider: Gregory Romo Reason for Consult: hydronephrosis, hydrocele EMERGENT Consult: No Notified: Yes Date Notified: 06/11/21 Time Notified: 18:57 Method of Notification: Verbal 06/13/21 09:26 Consult: Gastroenterology Routine Consulting Provider: Giorgi Mccormick Reason for Consult: Gi bleed EMERGENT Consult: No Notified: Yes Date Notified: 06/13/21 Time Notified: 09:26 Method of Notification: Text Reason For Visit: TIERA, HYPERKALEMIA Diagnosis Discharge Diagnosis (1) Acute kidney injury: Status: Acute Code(s): N17.9 - Acute kidney failure, unspecified (2) Hyperkalemia: Status: Acute Code(s): E87.5 - Hyperkalemia (3) Metabolic acidosis: Status: Acute Code(s): E87.2 - Acidosis (4) Anemia: Status: Acute Code(s): D64.9 - Anemia, unspecified (5) Prostate cancer metastatic to bone: Status: Acute Code(s): C61 - Malignant neoplasm of prostate; C79.51 - Secondary malignant neoplasm of bone (6) Esophageal ulcer: Status: Acute Code(s): K22.10 - Ulcer of esophagus without bleeding Qualifiers: Esophageal ulcer bleeding: with bleeding Qualified Code(s): K22.11 - Ulcer of esophagus with bleeding (7) Acute blood loss anemia: Status: Acute Code(s): D62 - Acute posthemorrhagic anemia Medications at Discharge Home Medications Co Q-10 300 mg PO BID 06/12/21 Metamucil 1 tbsp PO/SL DAILY PRN 06/12/21 Myrbetriq 50 mg PO DAILY 06/12/21 PreserVision AREDS 1 tab PO/SL BID 06/12/21 Refresh Relieva 1 drp RIGHT EYE 4X/DAY 06/12/21 amlodipine 5 mg PO DAILY 06/12/21 ascorbate calcium (vitamin C) 1,000 mg PO DAILY 06/12/21 calcium citrate 950 mg PO DAILY 06/12/21 cholecalciferol (vitamin D3) 250 mcg PO DAILY 06/12/21 clotrimazole-betamethasone 1 applic TOPICAL BID 06/12/21 cyanocobalamin (vitamin B-12) [Vitamin B-12] 1,000 mcg PO DAILY 06/12/21 diphenoxylate-atropine 1 - 2 tab PO Q6H PRN 06/12/21 famotidine 20 mg PO 4X/DAY 06/12/21 ferrous sulfate 325 mg PO DAILY 06/12/21 furosemide [Lasix] 20 mg PO DAILY 06/12/21 gabapentin 300 mg PO BID 06/12/21 loperamide 2 mg PO PRN 06/12/21 loratadine [Claritin] 10 mg PO DAILY 06/12/21 magnesium oxide [MagOx] 400 mg PO DAILY 06/12/21 melatonin 10 mg PO QHS 06/12/21 metoprolol tartrate 12.5 mg PO BID 06/12/21 mirtazapine 15 mg PO QHS 06/12/21 vangvpazvxzd-oilqcpce-yjfrjp 1 tab PO DAILY 06/12/21 naloxone 4 mg INTRANASAL Q3M PRN 06/12/21 promethazine 25 mg PO Q6H PRN 06/12/21 rosuvastatin 20 mg PO DAILY 06/12/21 vitamin B complex 1 tab PO DAILY 06/12/21 colestipol [Colestid] 2 g PO DAILY #30 tab 06/19/21 pantoprazole [Protonix] 40 mg PO BID #60 tab 06/19/21 sennosides [senna] 8.6 mg PO QHS PRN #0 tab 06/19/21 Hospital Course Operations - ( 1. 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 Falls PT OT eval additional therapy recomended. 3. L Knee pain improve suspect MCL strain xray negative 4.HFpEF, chronic stable Enptresto held give TIERA 5. pAfib anticoagulated with apixaban on sotalol and) Procedures Colonoscopy ( Patent end-to-end colo-colonic anastomosis. - Moderate diverticulosis in the sigmoid colon and in the descending colon. There was no evidence of diverticular bleeding. - The examination was otherwise normal. - No specimens collected.) and EGD (- Bleeding esophageal ulcer. Treated with a heater probe. 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 Biopsied. - Normal stomach. - No gross lesions in the first portion of the duodenum.) Summary of Care Provided Minutes Spent on Discharge: 35 Hospital Course: 81-year-old male presents with acute kidney injury and hydronephrosis. Patient underwent cystoscopy with bilateral ureteral stents by Dr. Romo. Patient also did have acute blood loss anemia. Reluctantly and eventually agreed to having endoscopy. Endoscopy showed a an esophageal ulcer that was bleeding and had a heater probe. Patient was transfused and hemoglobin remained stable. Patient had acute kidney injury due to the hydronephrosis as well as NSAIDs. NSAIDs will be held as well as lisinopril. Patient can resume his furosemide 20 mg daily been a does have anasarca. Patient has a social dynamic at home where he defers to his decisions regarding his medical care with the exception of hospice. Patient was no hospice at this time but apparently there is some disconnect between his desires and her desires. He related to me that she would prefer him to be though denies any concern for his safety at home. Patient was very weak and it was felt the patient may require assisted facility but patient actually did well. Patient one-point to tell me that he would have someone at his house who would help with 24/7 use not his and that was a friend whom he is not spoken to with in several months but declined to give me that person's name. I did confront the patient stated that a did not feel that person existed which obviously upset him. But fortunately patient is able to do well. From his prostate cancer he is declined any further treatment for that in regards to radiation and chemotherapy. Overall patient is medically stable for discharge. Patient will follow up with urology, gastroenterology. Patient will be on pantoprazole as well as as colestipol until he follows up with gastroenterology. Patient did have confusion likely metabolic with acute kidney injury but also probably with medications as well as. Patient was on methadone. Patient methadone will be held moving forward. Patient met with palliative care and will continue with a follow-up with palliative care as outpatient. Physical Exam Const alert and no apparent distress Resp normal respiratory effort and no retractions Resp Narrative: bibasilar crackles. Cardio regular rate, regular rhythm, S1 normal heart sound and S2 normal heart sound GI normal to inspection, nondistended, normoactive bowel sounds, soft to palpation, non-tender and non-distended Extremity General Extremity: edema bilateral Weight / BMI Weight Weight: 72.48 kg Body Mass Index (BMI) 26.6 ABG / Lab / Microbiology Data Result Diagrams: 06/19/21 05:08 06/19/21 05:08 Laboratory: Laboratory Results - last 24 hr 06/19/21 05:08: WBC 6.7, RBC 3.00 L, Hgb 8.5 L, Hct 26.6 L, MCV 88.7, MCH 28.3, MCHC 32.0, RDW Std Deviation 49.5 H, RDW Coeff of Nery 15.3 H, Plt Count 149 L, MPV 10.6, Neut % (Auto) Not Reportable, Absolute Neuts (auto) 5.1, Absolute Lymphs (auto) 0.47 L, Total Counted 100, Neutrophils % (Manual) 75 H, Band Neutrophils % 1, Lymphocytes % (Manual) 7 L, Monocytes % (Manual) 9, Metamyelocytes % 3 H, Myelocytes % 5 H, Nucleated RBCs/100 WBC 1, Diff Path Review August, Platelet Estimate ADEQUATE, RBC Morphology NORM C+C 06/19/21 05:08: Sodium 139, Potassium 3.6, Chloride 105, Carbon Dioxide 26.0, Anion Gap 8, BUN 43 H, Creatinine 2.42 H, Estim Creat Clear Calc 21.53, Est GFR (MDRD) Af Amer 33 L, Est GFR (MDRD) Non-Af 28 L, BUN/Creatinine Ratio 17.8, Glucose 144 H, Calcium 7.8 L Microbiology: Microbiology 06/14/21 07:40 Nasal Secretion SARS-CoV-2 Antigen (Rapid) - Final 06/12/21 15:15 Stool Stool Occult Blood (EDGARDO) - Final Occult Blood Positive D/C Instructions Discharge Diet: No restrictions (no spicy food. minimize acidic foods.) Call your doctor if you observe: Fever of 101 or Higher, Shortness of breath and - (blood in stools. dark tarry stools) Meaningful Use Info Meaningful Use Diagnoses (Choose all that apply): None applicable Discharge Plan Admission Admit Date/Time: 06/11/21 14:14 Primary Reason for Your Visit: TIERA. hydronephrosis. GI bleed. Esophageal ulcer. Attending Provider: James Garnett Primary Care Provider: Gerardo Roa Consulting Providers: Delicia Arrieta ; Gregory Romo ; Friend,Giorgi Discharge Orders/Prescriptions Prescriptions: New pantoprazole [Protonix] 40 mg tablet,delayed release (DR/EC) 40 mg PO BID Qty: 60 RF: 0 colestipol [Colestid] 1 gram Tablet 2 g PO DAILY Qty: 30 RF: 0 Continued vitamin B complex Tablet Extended Release 1 tab PO DAILY RF: 0 loperamide 2 mg Tablet 2 mg PO PRN (Reason: Diarrhea) RF: 0 diphenoxylate-atropine 2.5-0.025 mg tablet 1 - 2 tab PO Q6H PRN (Reason: Diarrhea) RF: 0 amlodipine 5 mg tablet 5 mg PO DAILY RF: 0 famotidine 20 mg Tablet 20 mg PO 4X/DAY RF: 0 magnesium oxide [MagOx] 400 mg (241.3 mg magnesium) Tablet 400 mg PO DAILY RF: 0 ferrous sulfate 325 mg (65 mg iron) Tablet 325 mg PO DAILY RF: 0 ascorbate calcium (vitamin C) 500 mg Tablet 1,000 mg PO DAILY RF: 0 clotrimazole-betamethasone 1-0.05 % cream 1 applic TOPICAL BID RF: 0 promethazine 25 mg Tablet 25 mg PO Q6H PRN (Reason: Nausea) RF: 0 gabapentin 300 mg Capsule 300 mg PO BID RF: 0 furosemide [Lasix] 20 mg Tablet 20 mg PO DAILY RF: 0 mirtazapine 15 mg Tablet 15 mg PO QHS RF: 0 loratadine [Claritin] 10 mg Tablet 10 mg PO DAILY RF: 0 calcium citrate 200 mg (950 mg) Tablet 950 mg PO DAILY RF: 0 rodhjtoqsdsi-qlavgpcf-hipehj Tablet 1 tab PO DAILY RF: 0 Co Q-10 300 mg Capsule 300 mg PO BID RF: 0 metoprolol tartrate 25 mg Tablet 12.5 mg PO BID RF: 0 Refresh Relieva 0.5-0.9 % Drops 1 drp RIGHT EYE 4X/DAY RF: 0 melatonin 10 mg Tablet 10 mg PO QHS RF: 0 Myrbetriq 50 mg Tablet Extended Release 24 Hr 50 mg PO DAILY RF: 0 cholecalciferol (vitamin D3) 250 mcg (10,000 unit) Tablet 250 mcg PO DAILY RF: 0 naloxone 4 mg/actuation [place],Non-Aerosol 4 mg INTRANASAL Q3M PRN (Reason: Opioid Overdose) RF: 0 Metamucil 1 tbsp PO/SL DAILY PRN (Reason: Constipation) RF: 0 PreserVision AREDS 1 tab PO/SL BID RF: 0 cyanocobalamin (vitamin B-12) [Vitamin B-12] 1,000 mcg Tablet 1,000 mcg PO DAILY RF: 0 rosuvastatin 20 mg Tablet 20 mg PO DAILY RF: 0 Changed sennosides [senna] 8.6 mg Tablet 8.6 mg PO QHS PRN (Reason: stool) Qty: 0 RF: 0 Discontinued methadone 10 mg tablet 10 mg PO BID RF: 0 aspirin [Adult Low Dose Aspirin] 81 mg tablet,delayed release (DR/EC) 81 mg PO DAILY RF: 0 hydrocodone-acetaminophen 7.5-325 mg tablet 1 tab PO Q4H PRN (Reason: Pain) RF: 0 lisinopril 40 mg tablet 60 mg PO DAILY RF: 0 eamungmaqus-przsnqmxg-yoz C-Mn [Glucosamine 1500 Complex] 500-400 mg Capsule 3 cap PO DAILY RF: 0 methylsulfonylmethane [MSM] 1,000 mg Tablet 1,000 mg PO DAILY RF: 0 pseudoephedrine HCl [Sudafed] 30 mg Tablet 30 mg PO DAILY RF: 0 saw palmetto 450 mg Capsule 450 mg PO DAILY RF: 0 resveratrol 250 mg Capsule 250 mg PO DAILY RF: 0 ribose 20 kcal/5 gram Powder PO DAILY RF: 0 Referrals / Follow Up: Gerardo Roa MD [Primary Care Provider] - Within 2 Weeks Gregory Romo MD [STAFF PHYSICIAN] - Within 2 Weeks Giorgi Mccormick DO [STAFF PHYSICIAN] - Within 1 Month Disposition Disposition (needs filled in before D/C Order can be placed): Home Health Service Charges/Coding Visit Charges Inpatient E&M: 47641 Disch Hosp
--- NOTE | 2021-06-19 12:30 | CASEMGMT ---
RN CM updated that daughter is requesting HHC at discharge. RN CM in to discuss with patient and daughter. RN CM provided list of HHC agency and explained that CM would like their choices and will follow-up on Monday to send referral for home therapy. Daughter Kassy and patient voiced understanding. Patient's preferred HHC Agnecies are 1. [facility] 2. [facility] 3. [facility]. CM will make referral on Monday and arranged for HHC. Patient and daughter had no further questions or concerns at this time.
--- NOTE | 2021-06-19 17:50 | PCA ---
Called [facility] oxygen service to set up home o2. [facility] returned our call, stating they have no O2 equipment for new starts this weekend. Home o2 set up with [facility].
--- NOTE | 2021-06-21 12:24 | CASEMGMT ---
Addendum entered by Jaja Walker 06/21/21 15:15: Received call back from [facility] and they are unable to aceept. SOL CALDERON sent referral to [facility] and awaiting call back. SOL CALDERON called to follow-up regarding HHC. Per patient is now on hospice services and requests HHC referral be cancelled. RN KVNG to call [facility] and cancel referral. Addendum entered by Jaja Walker 06/21/21 14:04: Received call back from [facility] and they are not able to accept the patient. SOL CALDERON sent referral to [facility], awaiting call back. Original Note: SOL CALDERON called and faxed referral to [facility]. [facility] call back with acceptance. CM will continue to work on HHC setup for patient.
[2021-06-21 14:32] LABS: Pathologist Review Reviewed
[2021-06-21 14:38] LABS: Pathologist Review Reviewed
== END 2021-06-19 17:10 | disposition home health service (06) | DRG 659 ==
LOC: ED 14:20 → PCU 14:33
PROVIDERS: Anesthesiology; Internal Medicine; Internal Medicine Gastroenterology; Internal Medicine Nephrology; Nurse Practitioner Adult Health; Nurse Practitioner Family; Urology; Admitting Provider Student in an Organized Health Care Education/Training Program; Emergency Provider Emergency Medicine; PCP Family Medicine
PROC: 0T788DZ Dilation of Bilateral Ureters with Intraluminal Device, Via Natural or Artificial Opening Endoscopic (ICD-10-PCS; CPT 52332; principal; 2021-06-14 16:45)
PROC: 0DJD8ZZ Inspection of Lower Intestinal Tract, Via Natural or Artificial Opening Endoscopic (ICD-10-PCS; CPT 45378; principal; 2021-06-18 13:30)
DX: N17.9 Acute kidney failure, unspecified (principal); K22.11 Ulcer of esophagus with bleeding; C79.51 Secondary malignant neoplasm of bone; D62 Acute posthemorrhagic anemia; N13.4 Hydroureter; I50.32 Chronic diastolic (congestive) heart failure; K57.32 Diverticulitis of large intestine without perforation or abscess without bleeding; C61 Malignant neoplasm of prostate; E87.5 Hyperkalemia; D63.0 Anemia in neoplastic disease; I25.10 Atherosclerotic heart disease of native coronary artery without angina pectoris; N50.89 Other specified disorders of the male genital organs; D50.9 Iron deficiency anemia, unspecified; I25.2 Old myocardial infarction; J45.909 Unspecified asthma, uncomplicated; S83.512A Sprain of anterior cruciate ligament of left knee, initial encounter; G89.29 Other chronic pain; Z20.822 Contact with and (suspected) exposure to COVID-19; N13.30 Unspecified hydronephrosis; Z66 Do not resuscitate; Z79.82 Long term (current) use of aspirin; Z51.5 Encounter for palliative care; Z95.5 Presence of coronary angioplasty implant and graft; Z92.21 Personal history of antineoplastic chemotherapy; Z87.891 Personal history of nicotine dependence
CPT/HCPCS: 36415; 71045; 74176; 76000; 80048; 80053; 80069; 81001; 82274; 82570; 82607; 82746; 82962; 83540; 83550; 83735; 84300; 85014; 85018; 85025; 85610; 85730; 86850; 86900; 86901; 86920; 86922; 87426; 88305; 88313; 88331; 88341; 88342; 93005; 94640; 97110; 97162; 97164; 97165; 97166; 97530; 97535; 97802; 97803; 99284; J7030; J7120; P9016; A4216; C1769; C2617; J0610; J2405; J3490